=== PATIENT | female | born 1965 | race African-American/Black ===

== ENCOUNTER → 2016-07-11 | Outpatient (CLI) | payer OTHER ==
--- NOTE | 2016-07-11 11:13 | WWHP ---
DATE OF SERVICE: 07/11/2016 CHIEF COMPLAINT: The patient is here for her routine gynecologic exam and mammogram. HPI: This is a 50-year-old G5, P3-0-2-3 with an LMP of 07/07/2016. The patient states she had one sexual encounter and the condom was used but she states the condom broke. She has been noticing a slight colorless discharge with odor for the past 2 weeks. She states she has not had any other sexual partners and is not seeing anybody at this time. The past medical history of chronic neck and back pain, degenerative bone disease and depression. MEDICATIONS: 1. Zoloft 100 mg daily. 2. Xanax 2 mg b.i.d. p.r.n. 3. Roberta p.r.n. 4. Ibuprofen p.r.n. ALLERGIES: No known drug allergies. Past surgical history, [employer]IVE history and family histories are unchanged from the 2015 H&P. REVIEW OF SYSTEMS: She has gained about 18 pounds over the last year. She denies respiratory, cardiac, or GI problems. SOCIAL HISTORY: She smokes 4 cigarettes per day and has 2 to 3 alcoholic drinks per month. She admits to smoking marijuana, but denies any other drug use. PHYSICAL EXAM: Blood pressure 121/75, height 5 feet 4 inches, weight 252 pounds. Temperature 97.8, pulse 91. This a well-developed, heavyset black female who is alert and oriented x3 in no acute distress. HEENT is within normal limits. NECK: Supple without mass or thyromegaly. CHEST AND LUNGS: Clear to auscultation. HEART: Regular rate and rhythm. Breasts, there is a small inclusion cyst at approximately the 4 o'clock position of the areola of the right breast. This measures approximately 9 mm. This has a benign appearance and is nontender and nonerythematous. There rest of the breasts are unremarkable without other mass or discharge. Axillary exam is negative for adenopathy. BACK: Negative for CVA tenderness. ABDOMEN: Obese, soft, nontender, without palpable masses. PELVIC EXAM: Normal external genitalia. Cervix and vagina reveal a small amount of menstrual-type blood and there is a slight odor noted. There is no other unusual discharge. The cervix appears nulliparous and slightly atrophic. There is no evidence of prolapse. The uterus is slightly retroverted, nongravid size and nontender. There are no palpable adnexal masses or tenderness. Rectovaginal exam is negative for mass or tenderness and is negative for occult blood. EXTREMITIES: Nontender. IMPRESSION: A 50-year-old female with complaints of slight colorless discharge and odor x2 weeks, suspect bacterial vaginosis. PLAN: 1. Pap smear was performed. 2. Self breast examination was discussed. 3. GC and Chlamydia testing from the cervix has been obtained. 4. Wet tej were not performed today because of the menstrual blood. 5. The patient will be treated with metronidazole 500 mg b.i.d. x7 days. She is instructed to avoid alcohol while she is on this medication. 6. STD prevention was discussed. We discussed the importance of limiting sexual partners and using condoms if she is sexually active. 7. She will return in one year.
--- NOTE | 2016-07-12 10:45 | MM ---
Reason for exam: screening (asymptomatic). Last mammogram was performed 1 year and 7 months ago. Physical Findings: A clinical breast exam by your physician is recommended on an annual basis and results should be correlated with mammographic findings. MG Screening Mammo w CAD Bilateral CC and MLO view(s) were taken. Prior study comparison: December 08, 2014, bilateral MG screening mammo w CAD. April 08, 2013, bilateral digital screening mammo w/CAD. There are scattered fibroglandular densities. No suspicious calcifications. Focal asymmetry in the upper right MLO view. This finding is changed when compared with previous exams. ASSESSMENT: Incomplete: need additional imaging evaluation, BI-RAD 0 RECOMMENDATION: Special view mammogram of the right breast. If lesion persists on supplemental views, image directed ultrasound is recommended. [facility] will attempt to contact patient to return for supplemental views and ultrasound if indicated.
== END ==
LOC: WWCWWP 08:47
PROVIDERS: ATTEND Obstetrics & Gynecology
DX: Z12.31 Encounter for screening mammogram for malignant neoplasm of breast (principal)
CPT/HCPCS: 87591; 87491; G0202

== ENCOUNTER → 2016-07-14 | Outpatient (CLI) | payer OTHER ==
--- NOTE | 2016-07-14 09:07 | MM ---
Reason for exam: additional evaluation requested from abnormal screening. Last mammogram was performed less than 1 month ago. Physical Findings: Nurse did not find any significant physical abnormalities on exam. MG Work Up Mamm w CAD RT ML and spot compression MLO view(s) were taken of the right breast. Prior study comparison: July 11, 2016, bilateral MG screening mammo w CAD. December 08, 2014, bilateral MG screening mammo w CAD. There are scattered fibroglandular densities. Focal asymmetry does not persist on additional views. These results were verbally communicated with the patient and result sheet given to the patient on 07/14/16. ASSESSMENT: Negative, BI-RAD 1 RECOMMENDATION: Return to routine screening mammogram schedule for both breasts.
== END | disposition home or self-care (01) ==
LOC: RADMAMWWP 07:03
PROVIDERS: ATTEND Obstetrics & Gynecology
DX: R92.8 Other abnormal and inconclusive findings on diagnostic imaging of breast (principal)

== ENCOUNTER → 2016-07-26 | Outpatient (CLI) | payer OTHER ==
--- NOTE | 2016-07-26 15:11 | MR ---
EXAMINATION TYPE: MR moe/alexsander wo con DATE OF EXAM: 07/26/2016 7:00 AM COMPARISON: NONE HISTORY: Cervicalgia, Lumbago CONTRAST: Performed utilizing 0 mL intravenous MultiHance gadolinium contrast. TECHNIQUE: Multiplanar multiecho imaging on a 3.0 Ronna magnet is performed through the cervical spin e. FINDINGS: The craniovertebral junction is normal. Vertebral body alignment is straightened. C7-T1: No focal disc herniation or significant disc bulge is evident. No spinal canal stenosis or n eural foraminal stenosis is present. C6-7: No focal disc herniation or significant disc bulge is evident. No spinal canal stenosis or alessandra ral foraminal stenosis is present. C5-6: Broad-based disc bulge is present with mild anterior thecal sac flattening. No cord contact is evident. No spinal canal stenosis is present. Mild bilateral foraminal narrowing may be present.. C4-5: No focal disc herniation or significant disc bulge is evident. No spinal canal stenosis or alessandra ral foraminal stenosis is present. C3-4: There is a tiny central protrusion with mild anterior thecal sac compression. This is in close approximation with the spinal cord. Cord deformity is not identified. No spinal canal stenosis presen t. Neural foramen are patent.. C2-3: No focal disc herniation or significant disc bulge is evident. No spinal canal stenosis or alessandra ral foraminal stenosis is present. IMPRESSIONS: 1. Mild disc bulging which is broad-based at C5-6 and focal and central at C3-4. No cord contact or s aleksandra canal stenosis is present. 2. Strain of the cervical spine related patient positioning or muscle spasm. EXAMINATION TYPE: MR moe/alexsander wo con DATE OF EXAM: 07/26/2016 7:00 AM COMPARISON: 02/21/2013 HISTORY: Cervicalgia, Lumbago CONTRAST: 0 mL intravenous MultiHance. TECHNIQUE: Multiplanar, multisequence images of the lumbar spine were acquired. FINDINGS: Cord terminates at the L1 level. Vertebral body alignment is normal. There is diffuse disc desiccation. Disc heights appear preserved. L5-S1: Minimal disc bulge is present without thecal sac contact. No spinal canal stenosis. No lay inal stenosis. Facet hypertrophy is present on the left without significant thecal sac compression.. L4-L5: No significant disc bulge or disc herniation. No spinal canal stenosis. No foraminal stenosi s. Facet hypertrophy is present with mild posterior lateral thecal sac contact.. L3-L4: No significant disc bulge or disc herniation. No spinal canal stenosis. No foraminal stenosi s. . L2-L3: No significant disc bulge or disc herniation. No spinal canal stenosis. No foraminal stenosi s. . L1-L2: No significant disc bulge or disc herniation. No spinal canal stenosis. No foraminal stenosi s. . T12-L1: No significant disc bulge or disc herniation. No spinal canal stenosis. No foraminal stenos is. . IMPRESSION: 1. Minimal disc bulge L5-S1. 2. Mild facet hypertrophy L4-5 L5-S1 3. No spinal canal stenosis. 4. No significant interval change
== END | disposition home or self-care (01) ==
LOC: RADMRIMAIN 06:11
PROVIDERS: ATTEND Nurse Practitioner Acute Care
DX: S16.1XXA Strain of muscle, fascia and tendon at neck level, initial encounter (principal); M50.21 Other cervical disc displacement, high cervical region; M51.27 Other intervertebral disc displacement, lumbosacral region; M46.97 Unspecified inflammatory spondylopathy, lumbosacral region
CPT/HCPCS: 72141; 72148

== ENCOUNTER → 2016-08-22 | Outpatient (CLI) | payer OTHER ==
--- NOTE | 2016-08-22 12:14 | CT ---
EXAMINATION TYPE: CT chest wo con DATE OF EXAM: 08/22/2016 COMPARISON: Prior CT chest 02/23/2016 HISTORY: Shortness of breath and Cough CT DLP: 549.60 mGycm Automated exposure control for dose reduction was used. Helical acquisition through the chest without contrast. FINDINGS: There is a nodular density present at the right upper lobe on axial image 23 measuring approximately 8 mm in size is likely to have grown in the interval. There is no axillary or hilar adenopathy. Preva scular lymph nodes are again noted as on previous. No endobronchial lesion, pleural or pericardial ef fusion. Upper abdomen is stable. Aorta shows normal caliber. Bones are unchanged. IMPRESSION: THERE ARE DIFFERENCES IN TECHNIQUE, THERE IS LIKELY SOME SLIGHT INTERVAL GROWTH IN THE PATIENT'S RIGH T UPPER LOBE LUNG NODULE. NONCONTRAST EXAM.
== END | disposition home or self-care (01) ==
LOC: RADCTMAIN 11:19
PROVIDERS: ATTEND Internal Medicine
DX: R05 Cough (principal)
CPT/HCPCS: 71250

== ENCOUNTER → 2016-08-29 | Outpatient (CLI) | payer OTHER ==
--- NOTE | 2016-08-29 10:01 | XR ---
EXAMINATION TYPE: XR Hip Complete RT DATE OF EXAM: 08/29/2016 COMPARISON: NONE HISTORY: Osteoarthritis pain x1 month TECHNIQUE: 2 view right hip FINDINGS: Joint space appears preserved. Femoral head articulates with the acetabulum. No acute fract ures evident. IMPRESSION: 1. Unremarkable right hip
--- NOTE | 2016-08-29 10:02 | XR ---
EXAMINATION TYPE: XR knee complete RT DATE OF EXAM: 08/29/2016 COMPARISON: NONE HISTORY: Osteoarthritis, pain x1 month TECHNIQUE: Three-view right knee FINDINGS: The medial femoral condylar and tibial plateau spurs are present. Joint spaces are preserve d. No joint effusion is evident. Anterior superior patellar spur is present. IMPRESSION: 1. Minimal degenerative change right knee.
== END | disposition home or self-care (01) ==
LOC: RADXRMAIN 09:09
PROVIDERS: ATTEND Internal Medicine
DX: M25.861 Other specified joint disorders, right knee (principal)
CPT/HCPCS: 73502

== ENCOUNTER → 2016-09-02 | Outpatient (CLI) | payer OTHER | END | disposition home or self-care (01) | LOC: RADPETMAIN 12:40 | PROVIDERS: ATTEND Internal Medicine | DX: Z53.9 Procedure and treatment not carried out, unspecified reason (principal) ==

== ENCOUNTER → 2017-01-27 | Outpatient (CLI) | payer OTHER ==
--- NOTE | 2017-01-28 13:56 | PE ---
Nuclear medicine PET/CT HISTORY: Solitary pulmonary nodule Patient received 11.6 mCi F-18 FDG intravenously in delayed scanning performed from the skull base to the mid thighs. Localization and attenuation correction CT scan was performed. Correlation to prior CT chest 08/22/2016, soft tissue of the neck 01/18/2017, prior CT chest 02/23/2016 Neck and chest: The right upper lobe lung nodule is diminished in size and may been postinflammatory focus, minimal residual nodularity present. No suspicious hypermetabolic uptake. All prevascular node s are present. Shotty nodes also present in the axilla, mediastinum. No pleural or pericardial effusi on. Abdomen pelvis: No adrenal mass or retroperitoneal adenopathy. No suspicious hypermetabolic uptake. U terus unremarkable. Osseous structures show somewhat uptake which is indeterminate. IMPRESSION: Interval decrease in size in patient's pleural-based pulmonary nodule. Additional finding s above.
== END | disposition home or self-care (01) ==
LOC: RADPETMAIN 14:07
PROVIDERS: ATTEND Internal Medicine
DX: R91.1 Solitary pulmonary nodule (principal)
CPT/HCPCS: 78815; A9552

== ENCOUNTER → 2017-02-15 | Outpatient (CLI) | payer OTHER ==
[2017-02-15 08:06] LABS: Basophils % (A) 0 %; CH 29.3; CHCM 34.1; Eosinophils # (A) 0.3 k/uL (0-0.7); Eosinophils % (A) 2 %; HDW 1.99; Luc # (Auto) 0.19; Luc % (Auto) 2; Lymphocytes # (A) 3.1 k/uL (1.0-4.8); Lymphocytes % (A) 25 %; MCH 28.6 pg (25.0-35.0); MCHC 33.2 g/dL (31.0-37.0); MCV 86.1 fL (80.0-100.0); Mean Platelet Volume 6.9; Monocytes # (A) 0.4 k/uL (0-1.0); Monocytes % (A) 3 %; Neutrophils # (A) 8.3 k/uL (1.3-7.7); Neutrophils % (A) 68 %; RBC 4.53 m/uL (3.80-5.40); RDW 13.2 % (11.5-15.5); WBC 12.3 k/uL (3.8-10.6); WBC (Perox) 12.17
[2017-02-15 09:41] LABS: ALT 23 U/L (9-52); AST 15 U/L (14-36); Alkaline Phosphatase 111 U/L (38-126); Anion Gap 8 mmol/L; Blood Urea Nitrogen 13 mg/dL (7-17); C Reactive Protein 22.3 mg/L (<10.0); Calcium 9.2 mg/dL (8.4-10.2); Carbon Dioxide 27 mmol/L (22-30); Chloride 105 mmol/L (98-107); Cholesterol 217 mg/dL (<200); Glucose 102 mg/dL (74-99); HDL Cholesterol 45 mg/dL (40-60); Non-African American GFR(MDRD) >60 (>60 ml/min/1.73 sqM); Potassium 4.2 mmol/L (3.5-5.1); Sodium 140 mmol/L (137-145); Total Bilirubin 0.5 mg/dL (0.2-1.3); Total Protein 7.6 g/dL (6.3-8.2)
[2017-02-15 09:42] LABS: Rheumatoid Factor, Qnt <9 IU/mL (<12)
[2017-02-15 12:20] LABS: Erythrocyte Sedimentation Rate 41 mm/hr (0-20)
[2017-02-15 16:47] LABS: ANA w/Reflex to Titer NEGATIVE (NEGATIVE)
== END | disposition home or self-care (01) ==
LOC: LABWHC1 07:29
PROVIDERS: ATTEND Nurse Practitioner Acute Care
DX: Z00.00 Encounter for general adult medical examination without abnormal findings (principal); J44.9 Chronic obstructive pulmonary disease, unspecified; K21.0 Gastro-esophageal reflux disease with esophagitis; E78.2 Mixed hyperlipidemia; I11.9 Hypertensive heart disease without heart failure; M19.90 Unspecified osteoarthritis, unspecified site; M25.50 Pain in unspecified joint; E55.9 Vitamin D deficiency, unspecified; R53.83 Other fatigue
CPT/HCPCS: 36415; 80053; 80061; 82306; 84439; 84443; 85025; 85652; 86038; 86140; 86431

== ENCOUNTER 2017-07-12 16:31 | Emergency (ER) | payer OTHER ==
[2017-07-12 16:36] VITALS: RESP 20; TEMP 98.1
[2017-07-12] MEDS ORDERED: MECLIZINE 12.5 MG TAB PO STA (16:59)
[2017-07-12] MEDS ORDERED: SODIUM CHLORIDE 0.9% 1,000 ML IV STA (16:59)
[2017-07-12] MEDS ORDERED: METOCLOPRAMIDE 5 MG/ML 2 ML VIAL IVP STA (16:59)
--- NOTE | 2017-07-12 17:09 | ED ---
General Adult HPI - General Chief complaint: Headache Stated complaint: Headache, Dizzy Time Seen by Provider: 07/12/17 16:47 Source: patient, RN notes reviewed Mode of arrival: ambulatory Limitations: no limitations - History of Present Illness Initial comments: This a 51-year-old female presents emergency Department chief complaint of intermittent headaches and dizziness. She states that she's been having on and off symptoms no consistent system in which she states she has a left-sided or right-sided headache she states that it comes and goes. She states that she took ibuprofen for. Patient also states that she takes Percocet, Xanax daily. Patient states that she's had no chest pain or shortness of breath. She states that she has short bouts of dizziness in which she describes as the room spins. It is worse with movement. Patient denies any current nausea, vomiting, diarrhea, constipation, fever Chills or any focal weakness. Patient states that she's been evaluated in the past by cardiology for 3 days because she is having syncopal episodes. There is no findings for significant cause. - Related Data Home Medications Medication Instructions Recorded Confirmed Furosemide [Lasix] 20 mg PO DAILY 08/02/15 07/12/17 Potassium Chloride [Klor-Con 10] 10 meq PO DAILY 08/02/15 07/12/17 ALPRAZolam [Xanax] 1 mg PO TID 01/18/17 07/12/17 Albuterol Inhaler [Ventolin Hfa 1 - 2 puff INHALATION RT-Q6H PRN 01/18/17 Inhaler] Budesonide-Formot 160-4.5 Mcg 2 puff INHALATION RT-BID 01/18/17 07/12/17 [Symbicort 160-4.5 Mcg Inhaler] oxyCODONE-APAP 7.5-325MG [Percocet 1 tab PO Q6HR PRN 01/18/17 07/12/17 7.5-325 mg] Amitriptyline HCl [Elavil] 50 mg PO HS 07/12/17 07/12/17 Previous Rx's Medication Instructions Recorded Ciprofloxacin HCl [Cipro] 500 mg PO Q12HR #10 tablet 07/12/17 Meclizine [Antivert] 25 mg PO TID PRN #15 tab 07/12/17 Allergies Allergy/AdvReac Type Severity Reaction Status Date / Time No Known Allergies Allergy Verified 07/12/17 16:54 Review of Systems ROS Statement: Those systems with pertinent positive or pertinent negative responses have been documented in the HPI. ROS Other: All systems not noted in ROS Statement are negative. Past Medical History Past Medical History: COPD Additional Past Medical History / Comment(s): nerve damage, degenerative disk History of Any Multi-Drug Resistant Organisms: None Reported Past Surgical History: Section Additional Past Surgical History / Comment(s): abd surgery Past Psychological History: Anxiety, Bipolar, Depression Smoking Status: Current every day smoker Past Alcohol Use History: None Reported Past Drug Use History: Marijuana General Exam Limitations: no limitations General appearance: alert, in no apparent distress Head exam: Present: atraumatic, normocephalic, normal inspection Eye exam: Present: normal appearance, PERRL, EOMI. Absent: scleral icterus, conjunctival injection, periorbital swelling ENT exam: Present: normal exam, mucous membranes moist Neck exam: Present: normal inspection. Absent: tenderness, meningismus, lymphadenopathy Respiratory exam: Present: normal lung sounds bilaterally. Absent: respiratory distress, wheezes, rales, rhonchi, stridor Cardiovascular Exam: Present: normal rhythm, tachycardia, normal heart sounds. Absent: systolic murmur, diastolic murmur, rubs, gallop, clicks GI/Abdominal exam: Present: soft, normal bowel sounds. Absent: distended, tenderness, guarding, rebound, rigid Neurological exam: Present: alert, oriented X3, CN II-XII intact, reflexes normal. Absent: motor sensory deficit Skin exam: Present: warm, dry, intact, normal color. Absent: rash Course Vital Signs 07/12/17 07/12/17 16:35 18:57 Temperature 98.1 F Pulse Rate 117 H 101 H Respiratory 20 20 Rate Blood Pressure 146/88 167/87 O2 Sat by Pulse 96 95 Oximetry Medical Decision Making - Medical Decision Making This is a 51-year-old female presented to the ER for headache and dizziness. Patient's laboratory review is unremarkable patient does have evidence of urinary tract infection. Patient feels improved after Antivert and antiemetics. Patient we discharged on Antivert and antibiotics - Lab Data Result diagrams: 07/12/17 17:15 07/12/17 17:15 Lab Results 07/12/17 07/12/17 07/12/17 Range/Units 17:15 17:15 17:15 WBC 13.2 H (3.8-10.6) k/uL RBC 5.18 (3.80-5.40) m/uL Hgb 14.1 (11.4-16.0) gm/dL Hct 43.1 (34.0-46.0) % MCV 83.3 (80.0-100.0) fL MCH 27.2 (25.0-35.0) pg MCHC 32.6 (31.0-37.0) g/dL RDW 13.5 (11.5-15.5) % Plt Count 404 (150-450) k/uL Neutrophils % 65 % Lymphocytes % 27 % Monocytes % 4 % Eosinophils % 3 % Basophils % 0 % Neutrophils # 8.5 H (1.3-7.7) k/uL Lymphocytes # 3.6 (1.0-4.8) k/uL Monocytes # 0.5 (0-1.0) k/uL Eosinophils # 0.4 (0-0.7) k/uL Basophils # 0.0 (0-0.2) k/uL Sodium 145 (137-145) mmol/L Potassium 3.7 (3.5-5.1) mmol/L Chloride 103 (98-107) mmol/L Carbon Dioxide 26 (22-30) mmol/L Anion Gap 16 mmol/L BUN 14 (7-17) mg/dL Creatinine 0.50 L (0.52-1.04) mg/dL Est GFR (CKD-EPI)AfAm >90 (>60 ml/min/1.73 sqM) Est GFR (CKD-EPI)NonAf >90 (>60 ml/min/1.73 sqM) Glucose 108 H (74-99) mg/dL Calcium 10.0 (8.4-10.2) mg/dL Magnesium 1.7 (1.6-2.3) mg/dL Total Bilirubin 0.4 (0.2-1.3) mg/dL AST 18 (14-36) U/L ALT 17 (9-52) U/L Alkaline Phosphatase 113 (38-126) U/L Troponin I <0.012 (0.000-0.034) ng/mL Total Protein 8.2 (6.3-8.2) g/dL Albumin 4.3 (3.5-5.0) g/dL Urine Color Urine Appearance (Clear) Urine pH (5.0-8.0) Ur Specific [place] (1.001-1.035) Urine Protein (Negative) Urine Glucose (UA) (Negative) Urine Ketones (Negative) Urine Blood (Negative) Urine Nitrite (Negative) Urine Bilirubin (Negative) Urine Urobilinogen (<2.0) mg/dL Ur Leukocyte Esterase (Negative) Urine RBC (0-5) /hpf Urine WBC (0-5) /hpf Ur Squamous Epith Cells (0-4) /hpf Amorphous Sediment (None) /hpf Urine Bacteria (None) /hpf Hyaline Casts (0-2) /lpf Urine Mucus (None) /hpf 07/12/17 Range/Units 17:15 WBC (3.8-10.6) k/uL RBC (3.80-5.40) m/uL Hgb (11.4-16.0) gm/dL Hct (34.0-46.0) % MCV (80.0-100.0) fL MCH (25.0-35.0) pg MCHC (31.0-37.0) g/dL RDW (11.5-15.5) % Plt Count (150-450) k/uL Neutrophils % % Lymphocytes % % Monocytes % % Eosinophils % % Basophils % % Neutrophils # (1.3-7.7) k/uL Lymphocytes # (1.0-4.8) k/uL Monocytes # (0-1.0) k/uL Eosinophils # (0-0.7) k/uL Basophils # (0-0.2) k/uL Sodium (137-145) mmol/L Potassium (3.5-5.1) mmol/L Chloride (98-107) mmol/L Carbon Dioxide (22-30) mmol/L Anion Gap mmol/L BUN (7-17) mg/dL Creatinine (0.52-1.04) mg/dL Est GFR (CKD-EPI)AfAm (>60 ml/min/1.73 sqM) Est GFR (CKD-EPI)NonAf (>60 ml/min/1.73 sqM) Glucose (74-99) mg/dL Calcium (8.4-10.2) mg/dL Magnesium (1.6-2.3) mg/dL Total Bilirubin (0.2-1.3) mg/dL AST (14-36) U/L ALT (9-52) U/L Alkaline Phosphatase (38-126) U/L Troponin I (0.000-0.034) ng/mL Total Protein (6.3-8.2) g/dL Albumin (3.5-5.0) g/dL Urine Color Yellow Urine Appearance Cloudy H (Clear) Urine pH 7.5 (5.0-8.0) Ur Specific [place] 1.012 (1.001-1.035) Urine Protein 2+ H (Negative) Urine Glucose (UA) Negative (Negative) Urine Ketones Negative (Negative) Urine Blood Moderate H (Negative) Urine Nitrite Negative (Negative) Urine Bilirubin Negative (Negative) Urine Urobilinogen 3.0 (<2.0) mg/dL Ur Leukocyte Esterase Moderate H (Negative) Urine RBC 21 H (0-5) /hpf Urine WBC 13 H (0-5) /hpf Ur Squamous Epith Cells 23 H (0-4) /hpf Amorphous Sediment Occasional H (None) /hpf Urine Bacteria Few H (None) /hpf Hyaline Casts 4 H (0-2) /lpf Urine Mucus Few H (None) /hpf Disposition Clinical Impression: Intermittent headache, UTI (urinary tract infection), Vertigo Disposition: HOME SELF-CARE Condition: Stable Instructions: Urinary Tract Infection in Women (ED), Vertigo (ED) Additional Instructions: Please return to the Emergency Department if symptoms worsen or any other concerns. Prescriptions: Ciprofloxacin HCl [Cipro] 500 mg PO Q12HR #10 tablet Meclizine [Antivert] 25 mg PO TID PRN #15 tab PRN Reason: Vertigo Is patient prescribed a controlled substance at d/c from ED?: No Referrals: Prince Koch MD [Primary Care Provider] - 1-2 days Time of Disposition: 18:36
[2017-07-12 17:32] LABS: Basophils % (A) 0 %; Eosinophils # (A) 0.4 k/uL (0-0.7); Eosinophils % (A) 3 %; HCT 43.1 % (34.0-46.0); HGB 14.1 gm/dL (11.4-16.0); Lymphocytes # (A) 3.6 k/uL (1.0-4.8); Lymphocytes % (A) 27 %; MCH 27.2 pg (25.0-35.0); MCHC 32.6 g/dL (31.0-37.0); MCV 83.3 fL (80.0-100.0); Mean Platelet Volume 7.5; Monocytes # (A) 0.5 k/uL (0-1.0); Monocytes % (A) 4 %; Neutrophils # (A) 8.5 k/uL (1.3-7.7); Neutrophils % (A) 65 %; Platelet Count 404 k/uL (150-450); RBC 5.18 m/uL (3.80-5.40); RDW 13.5 % (11.5-15.5); WBC 13.2 k/uL (3.8-10.6)
[2017-07-12 17:35] LABS: Amorphous Sediment,Urine Occasional /hpf; Appearance,Urine Cloudy (Clear); Bacteria,Urine Few /hpf; Bilirubin,Urine Negative (Negative); Blood,Urine Moderate (Negative); Color,Urine Yellow; Glucose,Urine (UA) Negative (Negative); Hyaline Casts,Urine 4 /lpf (0-2); Ketones,Urine Negative (Negative); Leukocyte Esterase,Urine Moderate (Negative); Mucus,Urine Few /hpf; Nitrite,Urine Negative (Negative); PH, Urine 7.5 (5.0-8.0); Protein,Urine 2+ (Negative); RBC,Urine 21 /hpf (0-5); Specific Gravity,Urine 1.012 (1.001-1.035); Squamous Epithelial Cell,Urine 23 /hpf (0-4); WBC,Urine 13 /hpf (0-5)
[2017-07-12 17:51] LABS: ALT 17 U/L (9-52); AST 18 U/L (14-36); Albumin 4.3 g/dL (3.5-5.0); Alkaline Phosphatase 113 U/L (38-126); Anion Gap 16 mmol/L; Blood Urea Nitrogen 14 mg/dL (7-17); Carbon Dioxide 26 mmol/L (22-30); Chloride 103 mmol/L (98-107); Glucose 108 mg/dL (74-99); Magnesium 1.7 mg/dL (1.6-2.3); Potassium 3.7 mmol/L (3.5-5.1); Sodium 145 mmol/L (137-145); Total Bilirubin 0.4 mg/dL (0.2-1.3); Total Protein 8.2 g/dL (6.3-8.2)
--- NOTE | 2017-07-12 18:03 | CT ---
EXAMINATION TYPE: CT brain wo con DATE OF EXAM: 07/12/2017 COMPARISON: NONE HISTORY: Headache and dizziness. CT DLP: 1057 mGycm. Automated Exposure Control for Dose Reduction was Utilized. TECHNIQUE: CT scan of the head is performed without contrast. FINDINGS: There is no mass effect nor midline shift. There is no sign of intracranial hemorrhage. Th ere is some cerebral cortical atrophy. The calvarium is intact. There is a mucous retention cyst in t he right maxillary sinus. CONCLUSION: Cerebral atrophy. No acute intracranial abnormality.
[2017-07-12 19:00] VITALS: BP 167/87; PULSE 101
== END 2017-07-12 19:21 | disposition home or self-care (01) ==
LOC: EC 16:31
DX: N39.0 Urinary tract infection, site not specified (principal); R51 Headache; R42 Dizziness and giddiness; R00.0 Tachycardia, unspecified; J44.9 Chronic obstructive pulmonary disease, unspecified; F41.9 Anxiety disorder, unspecified; F32.9 Major depressive disorder, single episode, unspecified; F17.200 Nicotine dependence, unspecified, uncomplicated; Z79.51 Long term (current) use of inhaled steroids; Z79.899 Other long term (current) drug therapy
CPT/HCPCS: 99284; 96374; 96361 ×2; 36415; 93005; 80053; 83735; 84484; 85025; 81001; 70450; J2765

== ENCOUNTER → 2017-09-27 | Outpatient (CLI) | payer OTHER ==
[2017-09-27 09:59] LABS: ALT 32 U/L (9-52); AST 17 U/L (14-36); Cholesterol 203 mg/dL (<200); Creatine Kinase 116 U/L (30-135); HDL Cholesterol 52 mg/dL (40-60); LDL Cholesterol,Calculated 138 mg/dL (0-99); Triglycerides 63 mg/dL (<150)
== END | disposition home or self-care (01) ==
LOC: LABWHC1 08:54
PROVIDERS: ATTEND Internal Medicine
DX: E78.2 Mixed hyperlipidemia (principal)
CPT/HCPCS: 36415; 80061; 82550; 84450; 84460

== ENCOUNTER → 2017-10-16 | Outpatient (CLI) | payer OTHER ==
[2017-10-16 07:35] LABS: HCT 42.2 % (34.0-46.0); HGB 13.8 gm/dL (11.4-16.0); MCH 27.9 pg (25.0-35.0); MCHC 32.8 g/dL (31.0-37.0); MCV 85.1 fL (80.0-100.0); Mean Platelet Volume 7.2; Platelet Count 368 k/uL (150-450); RBC 4.96 m/uL (3.80-5.40); RDW 14.2 % (11.5-15.5); WBC 15.8 k/uL (3.8-10.6)
[2017-10-16 08:09] LABS: ALT 32 U/L (9-52); AST 17 U/L (14-36); Albumin 3.7 g/dL (3.5-5.0); Alkaline Phosphatase 112 U/L (38-126); Anion Gap 7 mmol/L; Blood Urea Nitrogen 9 mg/dL (7-17); Calcium 9.3 mg/dL (8.4-10.2); Carbon Dioxide 30 mmol/L (22-30); Chloride 105 mmol/L (98-107); Glucose 96 mg/dL (74-99); Potassium 4.2 mmol/L (3.5-5.1); Sodium 142 mmol/L (137-145); T4, Free (Free Thyroxine) 1.14 ng/dL (0.78-2.19); Total Bilirubin 0.5 mg/dL (0.2-1.3); Total Protein 7.2 g/dL (6.3-8.2)
== END | disposition home or self-care (01) ==
LOC: LABWHC1 06:55
PROVIDERS: ATTEND Internal Medicine
DX: E78.2 Mixed hyperlipidemia (principal); E66.1 Drug-induced obesity; M19.90 Unspecified osteoarthritis, unspecified site
CPT/HCPCS: 36415; 80053; 84439; 84443; 85027

== ENCOUNTER → 2017-10-23 | Outpatient (CLI) | payer OTHER ==
[2017-10-23 10:11] VITALS: BP 117/79; PULSE 104; TEMP 98.1; BMI 43.2
--- NOTE | 2017-10-23 10:57 | P.HPOB ---
History of Present Illness H&P Date: 10/23/17 Chief Complaint: The patient is here for her routine gynecologic exam and mammogram. This is a 51-year-old with an LMP of July 2017. She states her periods were regular up until 3 months ago. She denies hot flashes. She states there is no way she could be since she has not been sexually active during the past year. She is complaining of slight vaginal discharge is been going on for some time. She denies odor or pruritus. Last year she was treated for bacterial vaginosis. She is otherwise without complaints. Review of Systems The patient's weight has been stable over the last year. She denies respiratory , cardiac, or G.I. problems. Past Medical History Past Medical History: COPD Additional Past Medical History / Comment(s): nerve damage, degenerative disk, chronic neck and back problems.PAST [employer] HISTORY: she has been treated for gonorrhea and chlamydia before 1998. History of Any Multi-Drug Resistant Organisms: None Reported Past Surgical History: Section (x 3) Additional Past Surgical History / Comment(s): abd surgery- lipoma removed. Past Psychological History: Anxiety, Bipolar, Depression Smoking Status: Current every day smoker (About a half a pack of cigarettes per day.) Past Alcohol Use History: None Reported Past Drug Use History: Marijuana Additional History: She is single and is not seeing anybody at this time. She is currently not sexually active. 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 - Past Family History Mother Family Medical History: Myocardial Infarction (NH) Additional Family Medical History / Comment(s): of HIV/AIDS. Medications and Allergies Home Medications Medication Instructions Recorded Confirmed Type Furosemide [Lasix] 20 mg PO DAILY 08/02/15 10/23/17 History Potassium Chloride [Klor-Con 10] 10 meq PO DAILY 08/02/15 10/23/17 History ALPRAZolam [Xanax] 1 mg PO TID 01/18/17 10/23/17 History Albuterol Inhaler [Ventolin Hfa 1 - 2 puff INHALATION RT-Q6H PRN 01/18/17 History Inhaler] Budesonide-Formot 160-4.5 Mcg 2 puff INHALATION RT-BID 01/18/17 10/23/17 History [Symbicort 160-4.5 Mcg Inhaler] oxyCODONE-APAP 7.5-325MG [Percocet 1 tab PO Q6HR PRN 01/18/17 10/23/17 History 7.5-325 mg] Amitriptyline HCl [Elavil] 50 mg PO HS 07/12/17 10/23/17 History Phentermine HCl [Adipex-P] tab PO DAILY 10/23/17 History Allergies Allergy/AdvReac Type Severity Reaction Status Date / Time No Known Allergies Allergy Verified 10/23/17 10:02 Exam Vital Signs Temp Pulse BP 10/23/17 10:03 98.1 F 104 H 117/79 Intake and Output 10/22/17 10/23/17 10/23/17 22:59 06:59 14:59 Other: Weight 114.305 kg Height 5'4", BMI 43.3. This is a well-developed well-nourished heavyset black female who is alert and oriented times 3 in no acute distress. HEENT: Within normal limits. NECK: Supple without mass or thyromegaly. CHEST AND LUNGS: Clear to auscultation. HEART: Regular rate and rhythm. BREASTS: There is a benign appearing inclusion cyst at the lateral aspect of the right areola measuring approximately 6 mm. This is not inflamed and nontender. She states this has been there since she popped a pimple like lesion. The breasts are otherwise without mass or tenderness. AXILLARY EXAM: Negative for adenopathy. BACK: Negative for CVA tenderness. ABDOMEN: Soft, nontender, without palpable masses. PELVIC EXAM: external genitalia has slight whitish, creamy discharge with otherwise normal external genitalia . Cervix and vagina appear normal with small amount of mucusy discharge with slight odor. There is no unusual discharge. There is no evidence of prolapse. The uterus is midposition, nongravid size and nontender. There are no palpable adnexal masses or tenderness. RECTAL EXAM: negative for mass or tenderness and is negative for occult blood. EXTREMITIES: Nontender. IMPRESSION: 1. 51 year old perimenopausal female with slight vaginal discharge, probable bacterial vaginosis. 2. Otherwise, normal pelvic exam. PLAN: 1. Pap smear was deferred since she had a normal one last year. 2. Self breast awareness was discussed. 3. Screening mammogram will be done today. 4. GC and chlamydia testing was obtained from cervix. 5. Metronidazole 500 mg PID times 7 days. An electronic prescription will be sent to [facility] on . 6. She'll keep a menstrual calendar and call if she had having menstrual problems or she has bleeding after 12 months of amenorrhea. We have discussed how menses can be irregular prior to the periods stopping. 7. She will return in one year and PRN.
[2017-10-25 07:48] LABS: C. trachomatis,PCR Negative (Neg,Equiv); Chlamydia trachomatis Source Cervix; N. gonorrhoeae,PCR Negative (Neg,Equiv); Neisseria Source Cervix
--- NOTE | 2017-10-25 08:46 | MM ---
Reason for exam: screening (asymptomatic). Last mammogram was performed 1 year and 3 months ago. Physical Findings: A clinical breast exam by your physician is recommended on an annual basis and results should be correlated with mammographic findings. MG Screening Mammo w CAD Bilateral CC and MLO view(s) were taken. Prior study comparison: July 14, 2016, right breast MG work up mamm w CAD RT. July 11, 2016, bilateral MG screening mammo w CAD. There are scattered fibroglandular densities. No significant changes when compared with prior studies. ASSESSMENT: Negative, BI-RAD 1 RECOMMENDATION: Routine screening mammogram of both breasts in 1 year.
== END | disposition home or self-care (01) ==
LOC: WWCWWP 09:37
PROVIDERS: ATTEND Obstetrics & Gynecology
DX: Z12.31 Encounter for screening mammogram for malignant neoplasm of breast (principal); Z11.3 Encounter for screening for infections with a predominantly sexual mode of transmission; N89.8 Other specified noninflammatory disorders of vagina
CPT/HCPCS: 77067; 87491; 87591

== ENCOUNTER 2018-01-01 08:23 | Emergency (ER) | payer OTHER ==
[2018-01-01 08:30] VITALS: RESP 18
[2018-01-01] MEDS ORDERED: Acetaminophen-Codeine 300-30mg TAB PO STA ×2 (09:03→09:38)
[2018-01-01] MEDS ORDERED: KETOROLAC 60 MG/2 ML VIAL IM STA (09:03)
[2018-01-01] MEDS ORDERED: ORPHENADRINE 30 MG/ML 2 ML VIAL IM STA (09:03)
--- NOTE | 2018-01-01 09:18 | ED ---
General Adult HPI - General Chief complaint: Back Pain/Injury Stated complaint: back pain Time Seen by Provider: 01/01/18 08:36 Source: patient, RN notes reviewed, old records reviewed Mode of arrival: wheelchair Limitations: no limitations - History of Present Illness Initial comments: Patient is a 52-year-old female presents emergency department today with chief complaint of lower back pain read on the left and right leg. Patient states she 's had no saddle anesthesias. She denies any other complaints at this time. Patient reports that she has had a history of chronic back pain. Patient states had no recent x-rays. She denies any significant falls or trauma to the back. - Related Data Home Medications Medication Instructions Recorded Confirmed Furosemide [Lasix] 20 mg PO DAILY 08/02/15 01/01/18 Potassium Chloride [Klor-Con 10] 10 meq PO DAILY 08/02/15 01/01/18 ALPRAZolam [Xanax] 1 mg PO TID 01/18/17 01/01/18 Albuterol Inhaler [Ventolin Hfa 1 - 2 puff INHALATION RT-Q6H PRN 01/18/17 Inhaler] Budesonide-Formot 160-4.5 Mcg 2 puff INHALATION RT-BID 01/18/17 01/01/18 [Symbicort 160-4.5 Mcg Inhaler] oxyCODONE-APAP 7.5-325MG [Percocet 1 tab PO Q6HR PRN 01/18/17 01/01/18 7.5-325 mg] Amitriptyline HCl [Elavil] 50 mg PO HS PRN 07/12/17 01/01/18 Montelukast Sodium [Singulair] 10 mg PO HS 01/01/18 01/01/18 Previous Rx's Medication Instructions Recorded Cyclobenzaprine [Flexeril] 10 mg PO TID #12 tab 01/01/18 Dexamethasone 0.75 mg PO DAILY #12 tab 01/01/18 Ketorolac [Toradol] 10 mg PO Q6HR #12 tab 01/01/18 Allergies Allergy/AdvReac Type Severity Reaction Status Date / Time No Known Allergies Allergy Verified 01/01/18 08:55 Review of Systems ROS Statement: Those systems with pertinent positive or pertinent negative responses have been documented in the HPI. ROS Other: All systems not noted in ROS Statement are negative. 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 History of Any Multi-Drug Resistant Organisms: None Reported Past Surgical History: Section Additional Past Surgical History / Comment(s): abd surgery- lipoma removed. Past Psychological History: Anxiety, Bipolar, Depression Smoking Status: Current every day smoker Past Alcohol Use History: None Reported Past Drug Use History: Marijuana - Past Family History Mother Family Medical History: Myocardial Infarction ([place]) Additional Family Medical History / Comment(s): of HIV/AIDS. General Exam - General Exam Comments Initial Comments: 52-year-old female. Alert and oriented. No acute distress. Limitations: no limitations General appearance: alert, in no apparent distress Head exam: Present: atraumatic, normocephalic, normal inspection Eye exam: Present: normal appearance, PERRL, EOMI. Absent: scleral icterus, conjunctival injection, periorbital swelling ENT exam: Present: normal exam, mucous membranes moist Neck exam: Present: normal inspection. Absent: tenderness, meningismus, lymphadenopathy Respiratory exam: Present: normal lung sounds bilaterally Cardiovascular Exam: Present: regular rate, normal rhythm, normal heart sounds. Absent: systolic murmur, diastolic murmur, rubs, gallop, clicks GI/Abdominal exam: Present: soft, normal bowel sounds. Absent: distended, tenderness, guarding, rebound, rigid Extremities exam: Present: normal inspection, full ROM, normal capillary refill , other (Positive straight leg test.). Absent: tenderness, pedal edema, joint swelling, calf tenderness Back exam: Present: normal inspection Neurological exam: Present: alert, oriented X3, CN II-XII intact Psychiatric exam: Present: normal affect, normal mood Skin exam: Present: warm, dry, intact, normal color. Absent: rash Course Vital Signs 01/01/18 08:27 Temperature 98.5 F Pulse Rate 106 H Respiratory 18 Rate Blood Pressure 121/79 O2 Sat by Pulse 97 Oximetry Medical Decision Making - Medical Decision Making 52-year-old female with chronic back pain worse with movement presents today with acute exacerbation of back pain, worse over the Past month. Patient denies any urinary symptoms. Denies any red flag symptoms. She denies any fevers chills or other complaints. X-ray showed no evidence of fracture or malalignment. At this time Patient has been advised of close follow-up with primary care physician. We'll start the Patient on anti-inflammatory medication and muscle relaxers and pain medication. Discussed return parameters. Patient history plan will comply. Return parameters were discussed. - Radiology Data Radiology results: report reviewed Fracture or malalignment seen in the lumbar spine. Mild multilevel degenerative disease in the lumbar spine noted. Disposition Clinical Impression: Mechanical back pain Disposition: HOME SELF-CARE Condition: Good Instructions: Chronic Back Pain (ED) Additional Instructions: Patient has a follow-up with primary care provider. Take medication as prescribed. Return to emergency department if any alarming signs or symptoms occur. Prescriptions: Cyclobenzaprine [Flexeril] 10 mg PO TID #12 tab Dexamethasone 0.75 mg PO DAILY #12 tab Ketorolac [Toradol] 10 mg PO Q6HR #12 tab Is patient prescribed a controlled substance at d/c from ED?: No Referrals: Prince Koch MD [Primary Care Provider] - 1-2 days Time of Disposition: 10:59
--- NOTE | 2018-01-01 10:29 | XR ---
EXAMINATION TYPE: XR lumbar spine 2 or 3V DATE OF EXAM: 01/01/2018 CLINICAL HISTORY: Chronic low back pain. No stated specific injury. TECHNIQUE: Frontal and lateral images of the lumbar spine are obtained. COMPARISON: 07/01/2014 FINDINGS: There are 5 lumbar type vertebral bodies identified. The lumbar spine shows satisfactory alignment without evidence of acute fracture or dislocation. Vertebral body heights and disk space he ights are within normal limits. Facet arthropathy is seen at L3-L4, L4-L5 and L5-S1. Very small anter ior osteophytes are seen visualized thoracolumbar spine. The overlying soft tissue appears unremarkab le. Very minimal levoscoliotic curvature is likely positional in nature. IMPRESSION: 1. No acute fracture or malalignment is seen in the lumbar spine. 2. Mild multilevel degenerative disc disease of the lumbar spine.
--- NOTE | 2018-01-01 11:12 | ED ---
Disposition Clinical Impression: Mechanical back pain Disposition: HOME SELF-CARE Condition: Good Instructions: Chronic Back Pain (ED) Additional Instructions: Patient has a follow-up with primary care provider. Take medication as prescribed. Return to emergency department if any alarming signs or symptoms occur. Prescriptions: Cyclobenzaprine [Flexeril] 10 mg PO TID #12 tab Dexamethasone 0.75 mg PO DAILY #12 tab Ketorolac [Toradol] 10 mg PO Q6HR #12 tab Lidocaine 5% Patch [Lidoderm 5% Patch] 1 patch TOPICAL DAILY #10 patch Is patient prescribed a controlled substance at d/c from ED?: No Referrals: Prince Koch MD [Primary Care Provider] - 1-2 days
[2018-01-01 11:17] VITALS: PULSE 89; TEMP 97.8
[2018-01-01 11:18] VITALS: BP 119/81
== END 2018-01-01 11:18 | disposition home or self-care (01) ==
LOC: EC 08:23
DX: G89.29 Other chronic pain (principal); M54.5 Low back pain; J44.9 Chronic obstructive pulmonary disease, unspecified; F41.9 Anxiety disorder, unspecified; F32.9 Major depressive disorder, single episode, unspecified; F17.200 Nicotine dependence, unspecified, uncomplicated; Z79.51 Long term (current) use of inhaled steroids; Z79.899 Other long term (current) drug therapy
CPT/HCPCS: 72100; 99284; 96372 ×2; J2360; J1885

== ENCOUNTER 2018-05-28 08:23 | Emergency (ER) | payer OTHER ==
[2018-05-28 08:28] VITALS: RESP 18
--- NOTE | 2018-05-28 08:58 | ED ---
Skin/Abscess/FB HPI - General Chief complaint: Skin/Abscess/Foreign Body Stated complaint: knot on rt shoulder blade Time Seen by Provider: 05/28/18 08:33 Source: patient, RN notes reviewed Mode of arrival: ambulatory Limitations: no limitations - History of Present Illness Initial comments: 52-year-old female presents emergency Department with multiple complaints. Primary complaint right shoulder pain, right scapular mass. Patient states developed the last 3 days. Patient states that she's had increase in pain and right shoulder with repetitious movements. Denies any trauma no falls. Denies any fevers or chills no chest pain or shortness of breath. Patient's family notices large lump on her back. Patient denies any upper extremity weakness, paresthesias. Patient also went of a rash or lower right leg which has been there for several weeks to months. She states it does slightly improved at times with steroid creams but does not improve completely. Patient states it is itchy. - Related Data Home Medications Medication Instructions Recorded Confirmed Budesonide-Formot 160-4.5 Mcg 2 puff INHALATION RT-BID 01/18/17 05/28/18 [Symbicort 160-4.5 Mcg Inhaler] ALPRAZolam [Xanax] 0.5 mg PO DAILY PRN 05/28/18 05/28/18 Ibuprofen [Motrin] 400 mg PO Q8HR PRN 05/28/18 05/28/18 Previous Rx's Medication Instructions Recorded Clotrimazole/Betameth Lotion 1 applic TOPICAL BID #30 ml 05/28/18 [Lotrisone] Ibuprofen [Motrin] 600 mg PO Q8HR PRN #30 tab 05/28/18 Allergies Allergy/AdvReac Type Severity Reaction Status Date / Time No Known Allergies Allergy Verified 05/28/18 08:34 Review of Systems ROS Statement: Those systems with pertinent positive or pertinent negative responses have been documented in the HPI. ROS Other: All systems not noted in ROS Statement are negative. 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 History of Any Multi-Drug Resistant Organisms: None Reported Past Surgical History: Section Additional Past Surgical History / Comment(s): abd surgery- lipoma removed. Past Psychological History: Anxiety, Bipolar, Depression Smoking Status: Current every day smoker Past Alcohol Use History: None Reported Past Drug Use History: Marijuana - Past Family History Mother Family Medical History: Myocardial Infarction ([place]) Additional Family Medical History / Comment(s): of HIV/AIDS. General Exam Limitations: no limitations General appearance: alert, in no apparent distress Head exam: Present: atraumatic, normocephalic, normal inspection Eye exam: Present: normal appearance, PERRL, EOMI. Absent: scleral icterus, conjunctival injection, periorbital swelling ENT exam: Present: normal exam, normal oropharynx, mucous membranes moist, TM's normal bilaterally Neck exam: Present: normal inspection, full ROM. Absent: tenderness, meningismus, lymphadenopathy Respiratory exam: Present: normal lung sounds bilaterally. Absent: respiratory distress, wheezes, rales, rhonchi, stridor Cardiovascular Exam: Present: regular rate, normal rhythm, normal heart sounds. Absent: systolic murmur, diastolic murmur, rubs, gallop, clicks Back exam: Absent: normal inspection (Right scapular region there is a large soft fluctuant mass approximately 10 cm in diameter) Skin exam: Present: warm, dry, intact, normal color, rash (Right leg there is a dry scaly patches noted with demarcated borders) Course Vital Signs 05/28/18 08:26 Temperature 98.3 F Pulse Rate 109 H Respiratory 18 Rate Blood Pressure 138/90 O2 Sat by Pulse 99 Oximetry Medical Decision Making - Medical Decision Making 52-year-old female presents emergency Department with 2 complaints. Patient's had a lump on her back which she states is only minimal for 3 days. Ultrasound shows soft tissue mass. Patient symptoms markedly his foot lipoma no this is the more acute onset. She will follow-up with orthopedics as she's had some right shoulder pain related to tendinitis. Patient was also has had a rash her right leg which is consistent with tinea. Patient will be discharged with close follow-up and return parameters were discussed. Disposition Clinical Impression: Lipoma, Right shoulder tendinitis, Tinea corporis Disposition: HOME SELF-CARE Condition: Stable Instructions (If sedation given, give patient instructions): Tinea Corporis (ED), Lipoma (ED) Additional Instructions: Please return to the Emergency Department if symptoms worsen or any other concerns. Please follow-up with orthopedics for recheck your right shoulder. Prescriptions: Clotrimazole/Betameth Lotion [Lotrisone] 1 applic TOPICAL BID #30 ml Ibuprofen [Motrin] 600 mg PO Q8HR PRN #30 tab PRN Reason: Pain Is patient prescribed a controlled substance at d/c from ED?: No Referrals: Prince Koch MD [Primary Care Provider] - 1-2 days Sean Garcia MD [STAFF PHYSICIAN] - 1-2 days Time of Disposition: 10:09
--- NOTE | 2018-05-28 09:35 | US ---
EXAMINATION TYPE: US mass soft tissue chest/back DATE OF EXAM: 05/28/2018 COMPARISON: NONE CLINICAL HISTORY: Pain. Palpable area right mid back x 3 days Right mid back: 10.8 x 5.1 x 14.5cm isoechoic solid appearing area with well defined borders and mini mal vascularity seen at patient's area of concern. IMPRESSION: There is a nonspecific soft tissue mass at the site of clinical concern. Correlate clinic ally. Consider MRI correlation.
[2018-05-28 11:12] VITALS: BP 136/99; PULSE 98; TEMP 97
== END 2018-05-28 11:14 | disposition home or self-care (01) ==
LOC: EC 08:23
DX: M75.91 Shoulder lesion, unspecified, right shoulder (principal); B35.4 Tinea corporis; D17.39 Benign lipomatous neoplasm of skin and subcutaneous tissue of other sites; J44.9 Chronic obstructive pulmonary disease, unspecified; F17.200 Nicotine dependence, unspecified, uncomplicated; Z79.51 Long term (current) use of inhaled steroids
CPT/HCPCS: 99283

== ENCOUNTER 2018-06-20 15:46 | Emergency (ER) | payer OTHER ==
[2018-06-20 16:00] VITALS: TEMP 98.2
[2018-06-20] MEDS ORDERED: HYDROcodone/APAP 5-325MG 1 EACH TAB PO STA (16:28)
--- NOTE | 2018-06-20 17:36 | XR ---
PROCEDURE: XR pelvis AP view - 1V DATE AND TIME: 06/20/2018 5:00 PM CLINICAL INDICATION: PHH; Pain TECHNIQUE: AP pelvis. COMPARISON: 08/29/2016 FINDINGS: There is no fracture or malalignment. The soft tissues are unremarkable. IMPRESSION: No acute radiographic process, AP pelvis.
--- NOTE | 2018-06-20 17:38 | XR ---
PROCEDURE: XR knee complete RT - 3V DATE AND TIME: 06/20/2018 5:00 PM CLINICAL INDICATION: PHH; Pain TECHNIQUE: AP and lateral and oblique AP views COMPARISON: 08/29/2016 FINDINGS: There is no fracture or malalignment. Mild joint space narrowing and ossific spurring noted at the medial compartment, consistent with oste oarthritis changes, similar to the prior study. No focal skeletal findings. The soft tissues are unremarkable. IMPRESSION: NO ACUTE PROCESS.
--- NOTE | 2018-06-20 18:34 | ED ---
Extremity Problem HPI - General Chief complaint: Extremity Problem,Nontraumatic Stated complaint: rt knee/leg pain Time Seen by Provider: 06/20/18 16:02 Source: patient Mode of arrival: wheelchair Limitations: no limitations - History of Present Illness Initial comments: 52-year-old feel past medical history of chronic back pain presenting today for chief complaint of right thigh pain. Patient states that from her knee rating up towards the right hip she has sharp shooting pain. She states she experienced this in the past, she states it usually is bilateral. She states this is a chronic issue. Patient states she recently started a second job she has noted increasing pain beginning in the right knee rating upwards right hip. Patient denies any numbness tingling loss sensation, pallor or coolness of the extremity. Patient denies any soft tissue swelling of the knee erythema warmth to palpation fever chills or night sweats. Patient denies any direct trauma or fall. Patient denies any other area of injury. Patient denies urinary tension loss of bowel bladder control. Remaining review of systems negative, patient denies any recent shortness of breath, chest pain, back pain, abdominal pain, nausea or vomiting, dysuria or hematuria, constipation or diarrhea, headaches or visual changes, or any other complaints. - Related Data Home Medications Medication Instructions Recorded Confirmed Budesonide-Formot 160-4.5 Mcg 2 puff INHALATION RT-BID 01/18/17 05/28/18 [Symbicort 160-4.5 Mcg Inhaler] ALPRAZolam [Xanax] 0.5 mg PO DAILY PRN 05/28/18 05/28/18 Ibuprofen [Motrin] 400 mg PO Q8HR PRN 05/28/18 05/28/18 Previous Rx's Medication Instructions Recorded Clotrimazole/Betameth Lotion 1 applic TOPICAL BID #30 ml 05/28/18 [Lotrisone] Ibuprofen [Motrin] 600 mg PO Q8HR PRN #30 tab 05/28/18 Allergies Allergy/AdvReac Type Severity Reaction Status Date / Time No Known Allergies Allergy Verified 06/20/18 16:00 Review of Systems ROS Statement: Those systems with pertinent positive or pertinent negative responses have been documented in the HPI. ROS Other: All systems not noted in ROS Statement are negative. 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 History of Any Multi-Drug Resistant Organisms: None Reported Past Surgical History: Section Additional Past Surgical History / Comment(s): abd surgery- lipoma removed. Past Psychological History: Anxiety, Bipolar, Depression Smoking Status: Current every day smoker Past Alcohol Use History: None Reported Past Drug Use History: Marijuana - Past Family History Mother Family Medical History: Myocardial Infarction ([place]) Additional Family Medical History / Comment(s): of HIV/AIDS. General Exam - General Exam Comments Initial Comments: General: The patient is awake and alert, in no distress, and does not appear acutely ill. Eye: Pupils are equal, round and reactive to light, extra-ocular movements are intact. No nystagmus. There is normal conjunctiva bilaterally. No signs of icterus. Cardiovascular: There is a regular rate and rhythm. No murmur, rub or gallop is appreciated. Respiratory: Lungs are clear to auscultation, respirations are non-labored, breath sounds are equal. No wheezes, stridor, rales, or rhonchi. Gastrointestinal: Soft, non-distended, non-tender abdomen without masses or organomegaly noted. There is no rebound or guarding present. Musculoskeletal: Upon inspection, no swelling erthema of the knees, equal b/l. No warmth to palpation. Normal ROM of the upper and lower extremities person bilaterally however patient complains of discomfort with range of motion at the right knee. Strength 5/5 of the LE equal b/l, extensor mechanism intact. Sensation intact of the LE including saddle region b/l. DP pulses equal bilaterally 2+. No point tenderness to palpation of knee or hip. Neurological: A&O x 3. CN II-XII intact, There are no obvious motor or sensory deficits. Coordination appears grossly intact. Speech is normal. Skin: Skin is warm and dry and no rashes or lesions are noted. Psychiatric: Cooperative, appropriate mood & affect, normal judgment. Limitations: no limitations Course Vital Signs 06/20/18 06/20/18 06/20/18 15:58 18:41 18:59 Temperature 98.2 F 98.2 F Pulse Rate 94 84 84 Respiratory 18 16 16 Rate Blood Pressure 128/83 124/61 124/61 O2 Sat by Pulse 97 99 99 Oximetry Medical Decision Making - Medical Decision Making 52yo female presenting today for cc of shoot pain up from right knee. Patient states this is chronic in nature and was told in the past she has neuropathy, pt neurovascularly intact. Pain has increased since increased activity with addition of second job. Pt denies fall or direct trauma. Pt has no infectious symptoms of ROS no on physical examination. Imaging studies are (-) for acute osseous process. Pt was provided knee immobilizer. Pt given norco which she states decreased symptoms. Pt provided work note to rest right knee. I advised patient to f/u with primary care provider and orthopedic surgery. After discussing the case with attending provider Dr. Ware he is agreeable with treatment plan and discharge. Pt appears pleased with plan, agreeable with discharge. Discharged appearing well. Pt was ambulated in room during physical examination and was able to weight bear. Disposition Clinical Impression: Right knee pain Disposition: HOME SELF-CARE Condition: Good Instructions (If sedation given, give patient instructions): Knee Pain (ED) Additional Instructions: Please use medication as discussed. Please follow-up with family doctor in the next 2 days/. Please return to emergency room if the symptoms increase or worsen or for any other concerns. Is patient prescribed a controlled substance at d/c from ED?: No Referrals: Prince Koch MD [Primary Care Provider] - 1-2 days Time of Disposition: 18:34
[2018-06-20 18:42] VITALS: BP 124/61; PULSE 84; RESP 16
== END 2018-06-20 18:55 | disposition home or self-care (01) ==
LOC: EC 15:46
DX: M25.561 Pain in right knee (principal); J44.9 Chronic obstructive pulmonary disease, unspecified; F17.200 Nicotine dependence, unspecified, uncomplicated; Z79.51 Long term (current) use of inhaled steroids
CPT/HCPCS: 72170; 99283

== ENCOUNTER 2018-09-03 08:51 | Observation (INO) | payer OTHER ==
[2018-09-03] MEDS ORDERED: SODIUM CHLORIDE 0.9% 1,000 ML IV STA ×2 (09:42)
[2018-09-03] MEDS ORDERED: ASPIRIN 81 MG PO STA (09:42)
--- NOTE | 2018-09-03 10:10 | ED ---
Extremity Problem HPI - General Chief complaint: Extremity Problem,Nontraumatic Stated complaint: left leg swelling/ left hand numbness Time Seen by Provider: 09/03/18 09:29 Source: patient, RN notes reviewed, old records reviewed Mode of arrival: ambulatory Limitations: no limitations - History of Present Illness Initial comments: This Patient is a 52-year-old female, with multiple complaints. She states that yesterday and today she's had a slight headache, complaining of dizziness, and complaining of some left arm tingling. Patient states that she felt she was walking around "drunk". Patient also states that she is concerned for left leg swelling. She's been having swelling after work of her left leg past few days. She reports that it seems to be improved after she looks her leg up and elevate this. Patient states that she's had no previous cardiac history. She has extensive family cardiac history. She denies any significant chest pain at this time. She complains of a dull headache. Patient states that she's had no visual changes, fevers or chills. - Related Data Home Medications Medication Instructions Recorded Confirmed No Known Home Medications 09/03/18 09/03/18 Allergies Allergy/AdvReac Type Severity Reaction Status Date / Time No Known Allergies Allergy Verified 09/03/18 09:37 Review of Systems ROS Statement: Those systems with pertinent positive or pertinent negative responses have been documented in the HPI. ROS Other: All systems not noted in ROS Statement are negative. 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 History of Any Multi-Drug Resistant Organisms: None Reported Past Surgical History: Section Additional Past Surgical History / Comment(s): abd surgery- lipoma removed. Past Psychological History: Anxiety, Bipolar, Depression Smoking Status: Current every day smoker Past Alcohol Use History: Rare Past Drug Use History: Marijuana - Past Family History Mother Family Medical History: Myocardial Infarction ([place]) Additional Family Medical History / Comment(s): of HIV/AIDS. General Exam - General Exam Comments Initial Comments: Alert and oriented africian serbian 52-year-old female. No significant distress. Limitations: no limitations Head exam: Present: atraumatic, normocephalic, normal inspection Eye exam: Present: normal appearance, PERRL, EOMI. Absent: scleral icterus, c onjunctival injection, periorbital swelling ENT exam: Present: normal exam, mucous membranes moist Neck exam: Present: normal inspection. Absent: tenderness, meningismus, lymphadenopathy Respiratory exam: Present: wheezes (Wheezing right lung). Absent: normal lung sounds bilaterally, respiratory distress, rales, rhonchi, stridor Cardiovascular Exam: Present: regular rate, normal rhythm, normal heart sounds. Absent: systolic murmur, diastolic murmur, rubs, gallop, clicks GI/Abdominal exam: Present: soft, normal bowel sounds. Absent: distended, tenderness, guarding, rebound, rigid Extremities exam: Present: normal inspection, full ROM, normal capillary refill, other (1+ pedal edema left leg. Tenderness.). Absent: tenderness, pedal edema, joint swelling, calf tenderness Back exam: Present: normal inspection Neurological exam: Present: alert, oriented X3, CN II-XII intact Psychiatric exam: Present: normal affect, normal mood Skin exam: Present: warm, dry, intact, normal color. Absent: rash Course Vital Signs 09/03/18 09/03/18 09/03/18 09:08 10:00 12:13 Temperature 98.7 F 98.0 F Pulse Rate 98 88 89 Respiratory 20 16 16 Rate Blood Pressure 143/89 130/98 151/89 O2 Sat by Pulse 93 L 99 99 Oximetry Medical Decision Making - Medical Decision Making 52-year-old female presents return today with multiple complaints. Complaint of left leg swelling, left arm tingling, dizziness sensation. She also some chest pain, complaining of a cough. She is a smoker. No prior history of strokes. This time Patient is an age of 2. Patient's given TIA workup, given aspirin. Blood work was reviewed apolinar woo. Chest x-ray was reviewed shows evidence of recent pneumonia. She does complain of worsening coughing. Will be given a dose Rocephin and azithromycin. Patient is assessed with Dr. Kidd. Concern for they'll continue left arm tingling numbness, complaints of dizziness that she will the Patient for concern for TIA. - Lab Data Result diagrams: 09/03/18 09:45 09/03/18 09:45 Lab Results 09/03/18 09/03/1809/03/19 Range/Units 09:45 09:45 09:45 WBC 9.1 (3.8-10.6) k/uL RBC 4.59 (3.80-5.40) m/uL Hgb 13.3 (11.4-16.0) gm/dL Hct 40.5 (34.0-46.0) % MCV 88.1 (80.0-100.0) fL MCH 28.9 (25.0-35.0) pg MCHC 32.8 (31.0-37.0) g/dL RDW 14.2 (11.5-15.5) % Plt Count 340 (150-450) k/uL Neutrophils % 56 % Lymphocytes % 35 % Monocytes % 4 % Eosinophils % 3 % Basophils % 0 % Neutrophils # 5.1 (1.3-7.7) k/uL Lymphocytes # 3.2 (1.0-4.8) k/uL Monocytes # 0.4 (0-1.0) k/uL Eosinophils # 0.3 (0-0.7) k/uL Basophils # 0.0 (0-0.2) k/uL PT (9.0-12.0) sec INR (<1.2) APTT (22.0-30.0) sec Sodium 143 (137-145) mmol/L Potassium 3.8 (3.5-5.1) mmol/L Chloride 109 H (98-107) mmol/L Carbon Dioxide 30 (22-30) mmol/L Anion Gap 4 mmol/L BUN 11 (7-17) mg/dL Creatinine 0.41 L (0.52-1.04) mg/dL Est GFR (CKD-EPI)AfAm >90 (>60 ml/min/1.73 sqM) Est GFR (CKD-EPI)NonAf >90 (>60 ml/min/1.73 sqM) Glucose 90 (74-99) mg/dL Calcium 8.6 (8.4-10.2) mg/dL Magnesium 1.7 (1.6-2.3) mg/dL Total Bilirubin 0.3 (0.2-1.3) mg/dL AST 12 L (14-36) U/L ALT 15 (9-52) U/L Alkaline Phosphatase 83 (38-126) U/L Troponin I (0.000-0.034) ng/mL NT-Pro-B Natriuret Pep 72 pg/mL Total Protein 6.7 (6.3-8.2) g/dL Albumin 3.4 L (3.5-5.0) g/dL Amylase 77 (30-110) U/L Lipase 142 (23-300) U/L 09/03/18 09/03/18 Range/Units 09:45 09:45 WBC (3.8-10.6) k/uL RBC (3.80-5.40) m/uL Hgb (11.4-16.0) gm/dL Hct (34.0-46.0) % MCV (80.0-100.0) fL MCH (25.0-35.0) pg MCHC (31.0-37.0) g/dL RDW (11.5-15.5) % Plt Count (150-450) k/uL Neutrophils % % Lymphocytes % % Monocytes % % Eosinophils % % Basophils % % Neutrophils # (1.3-7.7) k/uL Lymphocytes # (1.0-4.8) k/uL Monocytes # (0-1.0) k/uL Eosinophils # (0-0.7) k/uL Basophils # (0-0.2) k/uL PT 10.1 (9.0-12.0) sec INR 0.9 (<1.2) APTT 23.6 (22.0-30.0) sec Sodium (137-145) mmol/L Potassium (3.5-5.1) mmol/L Chloride (98-107) mmol/L Carbon Dioxide (22-30) mmol/L Anion Gap mmol/L BUN (7-17) mg/dL Creatinine (0.52-1.04) mg/dL Est GFR (CKD-EPI)AfAm (>60 ml/min/1.73 sqM) Est GFR (CKD-EPI)NonAf (>60 ml/min/1.73 sqM) Glucose (74-99) mg/dL Calcium (8.4-10.2) mg/dL Magnesium (1.6-2.3) mg/dL Total Bilirubin (0.2-1.3) mg/dL AST (14-36) U/L ALT (9-52) U/L Alkaline Phosphatase (38-126) U/L Troponin I <0.012 (0.000-0.034) ng/mL NT-Pro-B Natriuret Pep pg/mL Total Protein (6.3-8.2) g/dL Albumin (3.5-5.0) g/dL Amylase (30-110) U/L Lipase (23-300) U/L - Radiology Data Radiology results: report reviewed EKG shows normal sinus rhythm cannot rule out anterior infarct age undetermined. Ventricular rate of 88 bpm. MA interval is 138 ms. QRS duration 70 ms. QTC 366/442 ms. Disposition Clinical Impression: Arm paresthesia, left, Dizziness, Pneumonia Disposition: ADMITTED IP TO THIS HOSP Condition: Stable Is patient prescribed a controlled substance at d/c from ED?: No Referrals: Prince Koch MD [Primary Care Provider] - 1-2 days Time of Disposition: 13:18
[2018-09-03 10:12] LABS: Basophils % (A) 0 %; Eosinophils # (A) 0.3 k/uL (0-0.7); Eosinophils % (A) 3 %; HCT 40.5 % (34.0-46.0); HGB 13.3 gm/dL (11.4-16.0); Lymphocytes # (A) 3.2 k/uL (1.0-4.8); Lymphocytes % (A) 35 %; MCH 28.9 pg (25.0-35.0); MCHC 32.8 g/dL (31.0-37.0); MCV 88.1 fL (80.0-100.0); Mean Platelet Volume 7.5; Monocytes # (A) 0.4 k/uL (0-1.0); Monocytes % (A) 4 %; Neutrophils # (A) 5.1 k/uL (1.3-7.7); Neutrophils % (A) 56 %; Platelet Count 340 k/uL (150-450); RBC 4.59 m/uL (3.80-5.40); RDW 14.2 % (11.5-15.5); WBC 9.1 k/uL (3.8-10.6)
[2018-09-03 10:20] LABS: INR 0.9 (<1.2); Partial Thromboplastin Time 23.6 sec (22.0-30.0); Prothrombin Time 10.1 sec (9.0-12.0)
[2018-09-03 10:25] LABS: ALT 15 U/L (9-52); AST 12 U/L (14-36); African American GFR (CKD) >90 (>60 ml/min/1.73 sqM); Albumin 3.4 g/dL (3.5-5.0); Alkaline Phosphatase 83 U/L (38-126); Amylase 77 U/L (30-110); Anion Gap 4 mmol/L; Blood Urea Nitrogen 11 mg/dL (7-17); Calcium 8.6 mg/dL (8.4-10.2); Carbon Dioxide 30 mmol/L (22-30); Chloride 109 mmol/L (98-107); Glucose 90 mg/dL (74-99); Lipase 142 U/L (23-300); Magnesium 1.7 mg/dL (1.6-2.3); Potassium 3.8 mmol/L (3.5-5.1); Sodium 143 mmol/L (137-145); Total Bilirubin 0.3 mg/dL (0.2-1.3); Total Protein 6.7 g/dL (6.3-8.2)
--- NOTE | 2018-09-03 10:34 | XR ---
EXAMINATION TYPE: XR chest 2V DATE OF EXAM: 09/03/2018 COMPARISON: Prior chest x-ray 01/18/2017 HISTORY: Chest pain, cough TECHNIQUE: Frontal and lateral views of the chest are obtained. FINDINGS: There is no pleural effusion or pneumothorax seen. There is increased density superimposed over the lower thoracic spine on the lateral view, likely an infrahilar location on the frontal view . The cardiac silhouette size is within normal limits. The osseous structures are intact. There are overlying cardiac leads. IMPRESSION: Correlate for right lower lobe pneumonia. Follow-up recommended.
--- NOTE | 2018-09-03 10:40 | CT ---
EXAMINATION TYPE: CT brain wo con DATE OF EXAM: 09/03/2018 HISTORY: Lt arm numbness, Lt leg numbness CT DLP: 1099.4 mGycm. Automated Exposure Control for Dose Reduction was Utilized. TECHNIQUE: CT scan of the head is performed without contrast. COMPARISON: CT brain July 12, 2017. FINDINGS: There is no acute intracranial hemorrhage or midline shift identified. There is diffuse v entricular and sulcal prominence consistent with diffuse age-related cerebral atrophy maurice-white moncho er differentiation maintained. A 1.5 cm mucous retention cyst or polyp in the inferior posterior righ t maxillary sinus is redemonstrated . The globes are intact and the visualized sinuses are otherwise clear. IMPRESSION: No acute intracranial hemorrhage or midline shift. There is [id number] diffuse ag e-related cerebral atrophy redemonstrated without significant interval change.
--- NOTE | 2018-09-03 11:15 | US ---
EXAMINATION TYPE: US venous doppler duplex LE LT DATE OF EXAM: 09/03/2018 11:02 AM COMPARISON: US November 25, 2014 CLINICAL HISTORY: Pain. Left leg swelling SIDE PERFORMED: Left TECHNIQUE: The lower extremity deep venous system is examined utilizing real time linear array sonog mari with graded compression, doppler sonography and color-flow sonography. VESSELS IMAGED: External Iliac Vein (EIV) Common Femoral Vein Deep Femoral Vein Greater Saphenous Vein * Femoral Vein Popliteal Vein Small Saphenous Vein * Proximal Calf Veins (* superficial vessels) Left Leg: Appears negative for DVT Grayscale, color doppler, spectral doppler imaging performed of the deep veins of the left lower extr emity. There is normal flow, compressibility, vascular waveforms. IMPRESSION: No ultrasound evidence for acute DVT in the left lower extremity.
[2018-09-03] MEDS ORDERED: AZITHROMYCIN 500 MG TAB PO STA (13:17)
[2018-09-03] MEDS ORDERED: cefTRIAXone IN SWFI 1,000 MG/10 ML SYRINGE IVP STA (13:17)
[2018-09-03] MEDS ORDERED: PNEUMONIA PROTOCOL UTILIZED 1 EACH MISC PO PRN (13:20)
--- NOTE | 2018-09-03 15:12 | US ---
EXAMINATION TYPE: US carotid duplex BILAT DATE OF EXAM: 09/03/2018 COMPARISON: NONE CLINICAL HISTORY: TIA. EXAM MEASUREMENTS: RIGHT: Peak Systolic Velocity (PSV) cm/sec ----- Right CCA: 73.2 ----- Right ICA: 71.4 ----- Right ECA: 59.2 ICA/CCA ratio: 1.0 RIGHT: End Diastole cm/sec ----- Right CCA: 20.9 ----- Right ICA: 28.7 ----- Right ECA: 13.9 LEFT: Peak Systolic Velocity (PSV) cm/sec ----- Left CCA: 79.2 ----- Left ICA: 70.2 ----- Left ECA: 53.3 ICA/CCA ratio: 0.9 LEFT: End Diastole cm/sec ----- Left CCA: 19.7 ----- Left ICA: 32.9 ----- Left ECA: 7.8 VERTEBRALS (direction of flow): Right Vertebral: Antegrade Left Vertebral: Antegrade Rhythm: Normal Valentino scale images show no significant plaque formation carotid bulb level bilaterally. Velocity measu rements and ratios are within normal limits. IMPRESSION: No hemodynamic significant stenosis is seen in either internal carotid artery. Criteria for Assigning % of Stenosis / Diameter reduction (Estimation based on the indirect measurements of the internal carotid artery velocities (ICA PSV). 1. Normal (no stenosis)=ICA PSV < 125 cm/s: ratio < 2.0: ICA EDV<40 cm/s. 2. Less than 50% stenosis=ICA PSV < 125 cm/s: ratio < 2.0: ICA EDV<40 cm/s. 3. 50 to 69% stenosis=ICA PSV of 125 to 230 cm/s: ration 2.0 ? 4.0: ICA EDV 40-100 cm/s. 4. Greater than 70% stenosis to near occlusion= ICA PSV > 230 cm/s: ratio > 4.0: ICA EDV > 100 cm/s. 5. Near occlusion= ICA PSV velocities may be low or undetectable: variable ratio and ICA EDV. 6. Total occlusion=unable to detect flow.
--- NOTE | 2018-09-03 17:43 | P.HPIM ---
History of Present Illness H&P Date: 09/03/18 (TIA, right lower lobe pneumonia, fibromyalgia requesting pain medication) Chief Complaint: Slight headache dizziness left arm and left leg tingling and right LL pneum Admission history and physical by Dr. Naqvi date of service 09/03/2018. PCP Dr. Prince Koch and dictating the history and physical by Dr. Naqvi. Presented to the emergency room with the chief complain extremity problem with the left leg swelling and the left hand numbness and left leg numbness. History of present illness: 52 years old -[place] Islander female she presented to the emergency room stated that she had yesterday and today slight headache, dizziness, left arm tingling and she felt that she walking around as a drunk. This swelling over her left leg intermittent and it goes away when she elevates her legs. No cardiac history no history of WA however the EKG indicating possibility of old anteroseptal WA. She had no chest pain but she had dull headache no visual changes and no fever no chills. She has no known ALLERGY. In the past history Past history: She had history of smoking 1 pack per day however she cut down recently to 1 pack every 3 days. She smoked marijuana. She has a history of anxiety bipolar and depression. Family history she had 3 sons delivered by . Patient had past history of degenerative disc disease and the underlying remote history of gonorrhea and chlamydia in 1998. She has abdominal history for lipoma removed, she has history of lipoma in the back large 4 inches on the back of the right shoulder below the scapula, she has also smaller one lower in the left side of the midline on the back 1-1/2 inches approximately. She has fibromyalgia, she was treated in the past by neurology and pain clinic and they have been giving her injections in the back, recently she is dismissed. She stated that she has medication however no clear evidence as she doesn't remember them if she is taken them are not. History of COPD and the past Medication list: From Dr. Koch office #1 elavil 50 mg daily at bedtime she denied that #2 Cymbalta 60 mg daily #3 Lipitor 20 mg daily at at bedtime . #3 Lipitor 20 mg daily at bedtime. Number #4 Zyrtec 10 mg daily. #5 Motrin 600 mg 3 times a day. #6 Lasix 20 mg daily. #7 potassium chloride 10 mEq daily patient not using it. #8 Xanax 0.5 mg 3 times a day when necessary. She said that she was seeing psychiatry and Dr. Ortiz offic [facility]. Review of system: She is currently conscious alert oriented there is no numbness in her left arm or left leg at the time of the examination in the ER module 9. However she is requesting pain medication and states that the Percocet is the one that she use however was not present and Dr. Koch note and apparently she is in pain clinic and may be has habitual narcotic. Pulmonary she may have history of asthma however there is no exacerbation, COPD Heart no arrhythmia however the EKG indicating that she has old anterior infarction. GI no nausea no vomiting no diarrhea or constipation no hematochezia or hematemesis or melena. no symptoms of dysuria or hematuria. Endocrine no history of hypothyroidism or diabetes mellitus or treatment for. She has underlying arthritis and that she was given injection by Dr. Ortiz however she is out of the office and she may need other pain clinic if she continue to use narcotic. No other contributing Mendoza of review of system for the current condition. And she did not have similar episodes in the past. Family history: Her mom young in the 30s with history of AIDS secondary to injection of drug abuse. Her father with history of AIDS and alcoholism. On examination today NH his initial vital sign indicating temperature 98.7 F orally pulse rate 98 respiratory rate 20 blood pressure 143/89 and oxygen 93 permanent low. Patient is conscious alert alert oriented 3 with the complain of numbness in the arm and leg and slight headache which has been resolved with a questionable of TIA. Patient underwent computed tomography scan essentially negative and the carotid duplex is negative that echocardiogram is pending and consultation with neurology, pulmonary for evaluation and treatment with the suspicious of pneumonia however the lipoma in the right side of the back with some summation of the shadow could be presented is right lower lobe infiltrate we'll be consulting Dr. Scanlon the pulmonary and critical care. Her HEENT: Head was normocephalic and atraumatic, pupil was equal reactive, conjunctivae was pink, sclera nonicteric, extraocular muscle movement intact. Normal hearing, oropharynx natural teeth uvula midline. No ulceration. Fatoumata no rhinitis. Neck: Supple no JVD no thyromegaly no lymphadenopathy trachea midline. Chest clear to auscultation percussion I could not elicited decreased air entry on the right lower lobe. Heart PMI in the fifth intercostal space mildly outside midclavicular line normal S1 and S2 no gallop and regular sinus rhythm. Abdomen: Soft positive bowel sounds no organ enlargement. Her back there is a lipoma below the scapula large as well as lipoma small on the left side of midline and she had previously removed lipoma from the abdomen area. Extremities: Positive pulses bilateral, no edema, straight leg elevation bilateral was negative, plantar reflex was present normal Babinski, deep tendon reflexes still plus bilaterally. Extremities: Minimal difference between the right and the left motor. The cranial nerves intact 2 through 12 and she is ambulatory Assessment: #1 right lower lobe pneumonia with the and significant symptoms. #2 fibromyalgia #3 depression and anxiety bipolar #4 underlying chronic pain syndrome. #5 hyper lipidemia #6 hypertension. 7 obesity BMI is 37.5 kg/m. Plan: Patient currently on hold in the ER. #2 with a heart rate in the 90 and history of headache will start beta hanny once a day which will help the headache and increased heart rate as well as blood pressure Corgard. #3 patient currently please on antibiotic through the ER for the pneumonia. And #4 obtain computed tomography scan of the chest to clarify the issue of the pneumonia in the right lower lobe versus summation shadow A lipoma. #5 consultation with the neurologist with the possibility of TIA and patient placed on aspirin will see other instruction. #6 will also ask psychiatrist to see the patient evaluate her bipolar disorder and the chronic pain syndrome at the bipolar and depression and fibromyalgia. Current visit Doppler of the lower extremities negative for DVT, carotid Doppler of the current negative, echocardiogram is pending. 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 History of Any Multi-Drug Resistant Organisms: None Reported Past Surgical History: Section Additional Past Surgical History / Comment(s): abd surgery- lipoma removed. Past Psychological History: Anxiety, Bipolar, Depression Smoking Status: Current every day smoker Past Alcohol Use History: Rare Past Drug Use History: Marijuana - Past Family History Mother Family Medical History: Myocardial Infarction ([place]) Additional Family Medical History / Comment(s): of HIV/AIDS. Medications and Allergies Home Medications Medication Instructions Recorded Confirmed Type No Known Home Medications 09/03/18 09/03/18 History Allergies Allergy/AdvReac Type Severity Reaction Status Date / Time No Known Allergies Allergy Verified 09/03/18 09:37 Physical Exam Vitals: Vital Signs Temp Pulse Pulse Resp BP BP Pulse Ox 09/03/18 15:08 98 F 90 18 123/98 97 09/03/18 13:44 89 88 16 123/94 123/94 99 09/03/18 12:13 98.0 F 89 16 151/89 99 09/03/18 10:00 88 16 130/98 99 09/03/18 09:08 98.7 F 98 20 143/89 93 L Intake and Output 09/03/18 09/03/18 09/03/18 06:59 14:59 22:59 Other: Weight 99.201 kg Results CBC & Chem 7: 09/03/18 09:45 09/03/18 09:45 Labs: Abnormal Lab Results - Last 24 Hours (Table) 09/03/18 Range/Units 09:45 Chloride 109 H (98-107) mmol/L Creatinine 0.41 L (0.52-1.04) mg/dL AST 12 L (14-36) U/L Albumin 3.4 L (3.5-5.0) g/dL
[2018-09-03 18:05] VITALS: BMI 37.5
[2018-09-03 18:08] LABS: Amorphous Sediment,Urine Occasional /hpf; Appearance,Urine Cloudy (Clear); Bacteria,Urine Moderate /hpf; Bilirubin,Urine Negative (Negative); Blood,Urine Small (Negative); Color,Urine Light Yellow; Glucose,Urine (UA) Negative (Negative); Ketones,Urine Negative (Negative); Leukocyte Esterase,Urine Negative (Negative); Nitrite,Urine Negative (Negative); PH, Urine 7.5 (5.0-8.0); Protein,Urine Negative (Negative); RBC,Urine 7 /hpf (0-5); Specific Gravity,Urine 1.012 (1.001-1.035); Squamous Epithelial Cell,Urine 14 /hpf (0-4); Urobilinogen,Urine <2.0 mg/dL (<2.0)
--- NOTE | 2018-09-03 19:00 | CT ---
EXAMINATION TYPE: CT chest angio for PE DATE OF EXAM: 09/03/2018 COMPARISON: None HISTORY: Shortness of breath CT DLP: 527.3 mGycm Automated exposure control for dose reduction was used. CONTRAST: CT Chest for pulmonary embolism performed with with IV Contrast, patient injected with 100 mL of Isov ue 370. There are 3-D post processed images. FINDINGS: The lungs are clear of infiltrate. There is no evidence of a pulmonary mass. There is no pleural effu timothy. There is no adrenal mass. Upper abdominal soft tissues are intact. Thoracic aorta shows no evid ence of aneurysm or dissection. There is 10 mm anterior mediastinal lymph node. There are no hilar ma sses. There is normal contrast opacification of the pulmonary arteries. I see no filling defect. Thoracic vertebra appear intact. The ribs appear intact. IMPRESSION: No evidence of pulmonary embolism. Nonspecific small anterior mediastinal lymph nodes.
[2018-09-03] MEDS ORDERED: IBUPROFEN 600 MG TAB PO PRN (19:03)
[2018-09-03] MEDS ORDERED: LORazepam 0.5 MG TAB PO PRN (19:04)
[2018-09-03] MEDS: GABAPENTIN 100 MG CAP PO SCH (20:50)
[2018-09-03] MEDS ORDERED: FAMOTIDINE 20 MG/2 ML VIAL IV SCH (21:00)
[2018-09-04 06:15] LABS: Basophils % (A) 0 %; Eosinophils # (A) 0.3 k/uL (0-0.7); Eosinophils % (A) 3 %; HCT 37.7 % (34.0-46.0); HGB 12.1 gm/dL (11.4-16.0); Lymphocytes # (A) 3.4 k/uL (1.0-4.8); Lymphocytes % (A) 38 %; MCH 28.7 pg (25.0-35.0); MCHC 32.2 g/dL (31.0-37.0); MCV 89.3 fL (80.0-100.0); Mean Platelet Volume 7.4; Monocytes # (A) 0.3 k/uL (0-1.0); Monocytes % (A) 3 %; Neutrophils # (A) 4.8 k/uL (1.3-7.7); Neutrophils % (A) 54 %; Platelet Count 284 k/uL (150-450); RBC 4.22 m/uL (3.80-5.40); RDW 14.2 % (11.5-15.5); WBC 8.9 k/uL (3.8-10.6)
[2018-09-04 06:22] LABS: African American GFR (CKD) >90 (>60 ml/min/1.73 sqM); Anion Gap 4 mmol/L; Blood Urea Nitrogen 12 mg/dL (7-17); Calcium 8.7 mg/dL (8.4-10.2); Carbon Dioxide 28 mmol/L (22-30); Chloride 108 mmol/L (98-107); Cholesterol 169 mg/dL (<200); Glucose 87 mg/dL (74-99); HDL Cholesterol 45 mg/dL (40-60); LDL Cholesterol,Calculated 113 mg/dL (0-99); Potassium 3.9 mmol/L (3.5-5.1); Sodium 140 mmol/L (137-145); Triglycerides 55 mg/dL (<150)
[2018-09-04] MEDS: PANTOPRAZOLE 40 MG TABLET PO SCH (06:36)
[2018-09-04] MEDS: GABAPENTIN 100 MG CAP PO SCH ×3 (08:03→22:29)
[2018-09-04] MEDS: ASPIRIN 81 MG PO SCH (08:03)
[2018-09-04] MEDS ORDERED: AZITHROMYCIN 500 MG TAB PO SCH (09:00)
[2018-09-04] MEDS ORDERED: ASPIRIN 325 MG TAB PO SCH (09:00)
--- NOTE | 2018-09-04 10:16 | ECHOF ---
Referral Reason:EKG anterior infar old,TIA MEASUREMENTS -------- HEIGHT: 162.6 cm WEIGHT: 98.9 kg BP: RVIDd: 2.1 cm (< 3.3) IVSd: 1.4 cm (0.6 - 1.1) LVIDd: 4.2 cm (3.9 - 5.3) LVPWd: 1.5 cm (0.6 - 1.1) IVSs: 1.9 cm LVIDs: 2.0 cm LVPWs: 1.9 cm LAESV Index (A-L): 23.13 ml/m Ao Diam: 2.9 cm (2.0 - 3.7) AV Cusp: 1.9 cm (1.5 - 2.6) LA Diam: 3.0 cm (2.7 - 3.8) MV EXCURSION: 17.896 mm (> 18.000) MV EF SLOPE: 123 mm/s (70 - 150) EPSS: 0.7 cm MV E Yazan: 0.83 m/s MV DecT: 185 ms MV A Yazan: 0.98 m/s MV E/A Ratio: 0.84 RAP: 5.00 mmHg RVSP: 11.69 mmHg FINDINGS -------- Sinus rhythm. This was a technically good study. The left ventricular size is normal. There is moderate concentric left ventricular hypertrophy. O verall left ventricular systolic function is normal with, an EF between 55 - 60 %. The right ventricle is normal in size. Normal LA size by volume 22+/-6 ml/m2. The right atrial size is normal. Interatrial and interventricular septum intact. The aortic valve is trileaflet, and appears structurally normal. No aortic stenosis or regurgitation. The mitral valve is normal. Mild mitral regurgitation is present. The tricuspid valve appears structurally normal. Trace tricuspid regurgitation present. Right korina tricular systolic pressure is normal at < 35 mmHg. The right ventricular systolic pressure, as david ured by Doppler, is 11.69mmHg. There is no pulmonic regurgitation present. The aortic root size is normal. Normal inferior vena cava with normal inspiratory collapse consistent with estimated right atrial pre ssure of 5 mmHg. There is no pericardial effusion. CONCLUSIONS -------- 1. Sinus rhythm. 2. This was a technically good study. 3. The left ventricular size is normal. 4. There is moderate concentric left ventricular hypertrophy. 5. Overall left ventricular systolic function is normal with, an EF between 55 - 60 %. 6. Normal LA size by volume 22+/-6 ml/m2. 7. The aortic valve is trileaflet, and appears structurally normal. No aortic stenosis or regurgitati on. 8. The mitral valve is normal. 9. Mild mitral regurgitation is present. 10. The tricuspid valve appears structurally normal. 11. Trace tricuspid regurgitation present. 12. Right ventricular systolic pressure is normal at < 35 mmHg. 13. There is no pulmonic regurgitation present. 14. The aortic root size is normal. 15. There is no pericardial effusion. RADAR ENGINEER: Lucy Titus RDCS
--- NOTE | 2018-09-04 14:34 | P.PN ---
Subjective Progress Note Date: 09/04/18 (TIA, right lower lobe pneumonia has been cleared with the CT of the chest negative for infiltrate) Principal diagnosis: Diagnosis: #1 TIA patient underwent computed tomography scan of the brain negative, MRI of the brain scheduled for today in the afternoon waiting for the result subsequently. No residual neuromuscular deficit. #2 echocardiogram negative with only mitral regurg normal ejection fraction. #3 carotid Doppler study, no hemodynamic significant stenosis. #4 chest x-ray was suspicious of right lower lobe pneumonia, CT angiogram was negative for PE and negative. For pneumonia antibiotic discontinued. Apparently the examination of the lipoma large on the back of the right side below the scapula with the same medication picture of the chest x-ray: The confusion over the presence of infiltrate or pneumonia in the emergency room however the CAT scan clarified these confusion and no pneumonia and patient off the antibiotic. #5 left lower extremities venous insufficiency with a history of edema, however venous duplex study indicate normal with no evidence of DVT. Which done on admission in the ER. #6 urologically seen by the neurologist, patient ambulatory and no lateralizing sign no neuro deficit, and the plan for the MRI to be done with the expectation if it is normal we'll be discharging today or tomorrow depending on the reading the results. #7 fibromyalgia started on gabapentin been pain. #8 history of habituation on Xanax currently changed to Ativan. #9 chronic pain syndrome no narcotics started on ibuprofen 600 mg every 6 hour when necessary. #10 history of depression and bipolar and anxiety. Not seen yet by the psychiatry's. Progress note date of service 09/04/2018. Dictation by Dr. Dennise Manriquez [facility]. Patient seen and examined [id number]. Discussed with the patient in detail the current diagnosis, she seen already by the neurologist however I don't have their dictation on the computer, she is still not seen by the psychiatrist with history of bipolar and depression and anxiety and the use of Xanax. In the chest x-ray that in the ER thought to be right lower lobe pneumonia, this started on the protocol, however clinically does not fit for the pneumonia, and found that she had large lipoma on the back below the scapula which indicated that his summation shadow will be lost like infiltrate in the right lower lung, subsequently a computed tomography scan angiogram to rule out also PE was ordered, found that with no evidence of PE or infiltrate or pneumonia. Subsequently the antibiotic was discontinued. New The neurologist did see the patient and he ordered MRI of the brain will be done around 4 4:30 in the PM and we will be waiting for the result of the reading by the radiologist as well as well as the opinion of the neurologist. Her psychiatrist did not see the patient yet and we need to remind them that we need the consultation especially patient has bipolar, depression, anxiety and she has been on for a long time of Xanax with the habitual effect. Patient has chronic pain syndrome and she was on narcotic and she was requesting at the time of admission Percocet which no need for it at this point she was seen in the past by Dr. Ortiz and he excused her to see him again however patient if she has chronic pain needs to see a different pain clinic that presents as outpatient. Her EKG was no acute abnormalities except to that questionable anterior HI however that could be also associated with COPD and chronic smoker with increased anteroposterior diameter. Echocardiogram was negative with the underlying mitral regurg mild nonsymptomatic. With the ejection fraction is normal. Carotid duplex study no evidence of hemodynamic stenosis. Computed tomography scan angiogram indicating no PE and no infiltrate of the lung and no pneumonia. Venous duplex study in the ER showed negative DVT. Hypertension is controlled, hyperlipidemia and started on the Lipitor again 10 mg. On the physical exam: Patient conscious alert oriented 3 ambulatory no lateralizing sign no neuro deficit. Neck was supple no JVD no thyromegaly no lymphadenopathy trachea midline. Chest clear to auscultation and percussion with the increased anteroposterior diameter with normal variation of the lung bilaterally. The back she has lipoma large lipoma 4-5 inches in diameter below the scapula which causes a summation of the picture of of the shadow in the lower lung barrientos. The heart regular sinus rhythm with soft murmur left sternal border with history of mitral regurg. Abdomen positive bowel sound no organ enlargement and no tenderness in the 4 quadrants. Extremities: No edema and bolus right or left lower extremities and positive pulses. Neurologically: Stable no lateralizing sign however we waiting for the MRI o rdered by the neurologist. Psychiatry she had history of bipolar and depression and anxiety and we are awaiting for the psych evaluation to be done prior to discharge. Assessment and plan: TIA, hyperlipidemia, hypertension, history of bipolar, depression, anxiety. Ambulate as tolerated. Lipitor 10 mg once a day at bedtime. We'll wait for the opinion of the psychiatrist and [id number] to [facility] or a psychiatrist as outpatient in the future however we asking the psychiatry to evaluate for now and if there is any other medication needs to be given prior of the discharge especially patient bipolar with depression and history of fibromyalgia and chronic pain syndrome and asking for narcotic. Objective - Vital Signs Vital signs: Vital Signs Temp 98.8 F 09/04/18 07:31 Pulse 89 09/04/18 12:00 Resp 16 09/04/18 12:00 BP 128/81 09/04/18 12:00 Pulse Ox 97 09/04/18 12:00 Intake & Output 09/03/18 09/04/18 09/04/18 18:59 06:59 18:59 Intake Total 360 150 480 Balance 360 150 480 Weight 99.201 kg 99.2 kg Intake: IV 150 Sodium Chloride 0.9% 1, 150 000 ml @ 75 mls/hr IV . [id number] STA Rx#:[id number] Oral 360 480 Other: Voiding Method Toilet # Voids 1 2 - Labs CBC & Chem 7: 09/04/18 05:40 09/04/18 05:40 Labs: Abnormal Lab Results - Last 24 Hours (Table) 09/03/18 09/04/18 Range/Units 17:55 05:40 Chloride 108 H (98-107) mmol/L Creatinine 0.46 L (0.52-1.04) mg/dL LDL Cholesterol, Calc 113 H (0-99) mg/dL Urine Appearance Cloudy H (Clear) Urine Blood Small H (Negative) Urine RBC 7 H (0-5) /hpf Urine WBC 12 H (0-5) /hpf Ur Squamous Epith Cells 14 H (0-4) /hpf Amorphous Sediment Occasional H (None) /hpf Urine Bacteria Moderate H (None) /hpf Microbiology - Last 24 Hours (Table) 09/03/18 17:55 Urine Culture - Preliminary Urine,Voided
--- NOTE | 2018-09-04 15:34 | CONS ---
CONSULTATION DATE OF SERVICE: 09/04/2018. REFERRING PHYSICIAN: Dr. Naqvi. HISTORY OF PRESENT ILLNESS: Thank you for allowing me to evaluate Melania Lynn who is a 52-year-old right-handed female who presented to [facility] on 09/03/2018 for evaluation of symptoms which occurred over the past 2 days. The patient states that she has had left lower extremity swelling for several months, which tends to go down if she elevates the leg. She mentioned this in the emergency room and further testing was pursued including a left lower extremity venous Doppler which was negative for DVT. The primary issue that prompted presentation to the emergency room and this neurologic consultation was symptoms which began when the patient was at work 2 days ago. She states she was not feeling well, developed a "bad" headache characterized as a holocephalic pressure sensation which was associated with a vertiginous sensation and a feeling of the patient being off balance on her feet, but she denied consistent veering in one direction. She did not fall. She was able to complete her 8 hour work shift despite this being present and took 2 Tylenol for the headache. The headache did make her nauseated and she had a small amount of emesis. She was also photophobic and more prominently phonophobic. She denies previous history of migraine. Following work, the patient went home and noted numbness involving her left hand and left lower extremity, particularly in the region of the calf. There was no numbness on the right or involving the left side of the face. There was no associated dysarthria, difficulty chewing/swallowing, focal weakness involving the extremities, or facial droop. The next morning, the patient states her vision was blurred bilaterally which lasted 20 minutes and subsequently resolved. The patient denies previous history of stroke or seizure. She denies recent trauma, jaw claudication, tongue cramping or scalp tenderness. At this time, the patient states her symptoms have significantly improved. The headache has resolved, vision has returned to baseline and numbness which previously affected the hand distal to the wrist and now only affects the fingertips and there is no vertigo. ALLERGIES: No known drug allergies. HOME MEDICATIONS: The patient's home medication list from her physician apparently contained Elavil, Cymbalta, Lipitor, Zyrtec, Motrin, Lasix, potassium, and Xanax, although the patient states the only medication she was actually taking at home included Motrin p.r.n., Xanax p.r.n., and Lyrica 150 mg b.i.d. PAST MEDICAL HISTORY: Tobacco abuse, bipolar disorder (patient states she has not seen psych in a while), fibromyalgia, COPD, obesity, hyperlipidemia, and previous pulmonary nodule status post PET scan on 01/27/2017, which was unrevealing. PAST SURGICAL HISTORY: Lipoma removal, and x3. SOCIAL HISTORY: The patient smokes 1 pack every 3 days and rarely consumes alcohol. She reports marijuana use but no other illicit drugs. She is single with 3 sons and lives in a house with her son and grandchild. She states she occasionally uses a single prong cane over the past year when her right knee "goes out." FAMILY HISTORY: There is family history of Chiari malformation in the patient's niece. The patient's parents are . Father had history of EtOH abuse and emphysema. Mother had myocardial infarction, father also had a history of seizures. There is no family history of migraine or stroke at young age. REVIEW OF SYSTEMS: Fourteen systems are reviewed and no additional points are identified. The review of systems documented in history and physical. PHYSICAL EXAM: Upon my arrival to the patient's room, she was sitting at the side of bed, receptive to the examiner. Affect is mildly flat, she is obese, deconditioned, there are multiple family members at the bedside and the patient appears younger than stated age. VITAL SIGNS: Blood pressure is 134/85 with a pulse of 88, respiratory rate 16, temperature is 98.8, weight is 99.2 kg on a 5 foot 4 inch frame. Skin/extremities: There is a hyperpigmented patch over the anterior aspect of the right calf, which patient states is related to previous injury. Head and neck: No tenderness or signs of trauma. NECK: Supple without meningeal signs. Arteries are nontender and without bruits. HEART: Regular rate and rhythm. HIGHER CORTICAL FUNCTION: MENTAL STATUS: Patient was alert, oriented to time, place, and person. She was able to name repeat and read. There was no right or left disorientation, finger-nose extinction to double simultaneous stimulation or dysarthria. CRANIAL NERVES II through XII: Pupils are equal, round, reactive to light symmetrically. No afferent pupillary defect. Visual barrientos are intact to confrontation with each eye assessed individually. III, IV, no ptosis/extraocular movements are full. No nystagmus. V: Patient reports diminution to pinprick and light touch involving the left side of the face as compared to the right. Motor of 5, intact. VII no facial asymmetry or weakness. Acuity intact to finger rub. IX, X Palate bi in the midline. IX, XI, Trapezius intact. XII tongue protruded midline without fasciculation or atrophy. MOTOR EXAMINATION: There is no pronator drift. Normal bulk and tone is noted in all major muscle groups with no involuntary movements. Strength is 5 out of 5 throughout. Sensory: Patient reports diminution to pinprick and light touch involving the left upper and lower extremity as compared to the right. REFLEXES right side listed first: Biceps to 2+/2+, Brachioradialis 2/2, Triceps 2/2, patella 2/2, ankle 0/0. Plantar responses flexor. Hart's is absent. COORDINATION: [id number], [id number] movements are intact. Rapid alternating movements are symmetric with finger and foot tapping. Gait and station. Patient is able rise from a seated to a seated position without difficulty. She ambulated with a narrow based gait with equal arm swing. She was able to briefly get on her heels and toes. Romberg is negative. DIAGNOSTIC TESTING: The patient had a CT scan of the brain without contrast in the emergency room, which demonstrated atrophy but no acute pathology and the study was felt to be unchanged compared to previous CT from 07/12/2017. Chest x-ray was consistent with a right lower lobe pneumonia. Left lower extremity venous Doppler revealed no DVT. CTA of the chest demonstrated no pulmonary embolus. LAB WORK: Demonstrates a white blood count of 8.9, hemoglobin of 12.1, platelet count 284. Sodium 140, potassium 3.9, BUN 12 with creatinine of 0.46. INR 0.9. Calcium 8.7, ALT 15, AST 12. Troponin negative. Magnesium 1.7. Cholesterol 169 with LDL 113, HDL 45. Urinalysis demonstrated 12 WBCs, 7 RBCs, negative nitrite and leuko esterase. IMPRESSION: 1. On 09/02/2018 while the patient was at work, she developed a holocephalic headache with nausea, a small amount of emesis, vertigo, gait imbalance (without veering in 1 direction) and after completing her shift, developed left hand/left lower extremity numbness while at home. The next day, the patient had bilateral visual blurring. Differential diagnosis would include posterior circulation ischemic event versus migrainous phenomenon. The patient denies symptoms to suggest temporal arteritis and denies previous history of migraine. At this time, the headache, vertigo, and visual changes have resolved. Risk factors for stroke include tobacco abuse, obesity, and hyperlipidemia. The patient was not on aspirin or other anti-platelet/anticoagulant medication at the time of this event. 2. Right lower lobe pneumonia per chest x-ray, CTA of the chest demonstrated no pulmonary embolus. 3. Bipolar disorder. 4. Fibromyalgia. The patient reports neck/back and shoulder pain related to this diagnosis, which did not significantly worsen when the symptoms described in #1 developed. She is maintained on Lyrica in this regard. 5. Chronic obstructive pulmonary disease. 6. Noncompliance with medications. 7. Family history of Chiari malformation. RECOMMENDATIONS: 1. I discussed my impression with the patient and she expressed understanding. 2. For further evaluation, we will obtain MRI of the brain with diffusion- weighted images and MRA of the head/neck vessels with attention to the posterior circulation. 3. We will check sedimentation rate and the patient is maintained on telemetry. 4. CT of the brain demonstrated no acute pathology, carotid ultrasound demonstrated no significant stenosis on either side. An echocardiogram revealed normal left ventricular function with ejection fraction of 55-60 percent, moderate concentric left ventricular hypertrophy (? Underlying hypertension) and normal left atrial/left ventricular size. 5. Monitoring and treatment of blood pressure if felt clinically indicated per primary service. 6. Risk factor modification, which strongly recommend the patient quit smoking and reinitiate Lipitor. 7. Weight loss and regular exercise program is recommended. 8. Will follow with you. Thank you for allowing me to participate in the care of your patient. MMODL / IJN: [id number] / KHANG
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
--- NOTE | 2018-09-04 17:26 | MR ---
EXAMINATION TYPE: MR brain wo/w mrane wo/wcon DATE OF EXAM: 09/04/2018 COMPARISON: None HISTORY: stroke, shortness of breath on admission TECHNIQUE: Multiplanar, multisequence images of the brain and brainstem is performed without and with IV contras t, utilizing 10 mL intravenous Gadavist . FINDINGS: There is mild cerebral cortical atrophy. There is no mass effect nor midline shift. There i s no sign of intracranial hemorrhage. Brainstem is intact. Corpus callosum is intact. Sella turcica a ppears normal. There is no evidence of cortical infarct. Contrast images show no pathologic brain enhancement. There is demonstration of arterial flow in the anterior middle and posterior cerebral arteries. There is arterial flow in the vertebrobasilar artery system. There is normal contrast opacification of the venous sinuses. There is arterial flow in the common internal and external carotid arteries bilaterally. There is wid e patency of the carotid artery bifurcations. There is bilateral arterial flow in the vertebral arter ies which are fairly symmetric. IMPRESSION: Mild atrophy. No acute intracranial abnormality. Negative MR angiogram of the neck. No evidence of carotid or vertebral artery stenosis.
[2018-09-04] MEDS ORDERED: IPRATROPIUM-ALBUTEROL 3 ML NEB INHALATION PRN (19:22)
--- NOTE | 2018-09-04 19:23 | P.CNPUL ---
History of Present Illness Consult date: 09/04/18 Reason for consult: dyspnea, cough, obstructive sleep apnea Chief complaint: Shortness of breath, cough History of present illness: This is a 52-year-old -Mong[place] female who was admitted into the hospital for left leg swelling left arm numbness and left leg numbness from the emergency department she has some tingling sensation also feeling dizzy and lightheaded though symptoms have improved significantly today, she is a smoker and smokes about one pack per day lately have cut down to one third of pack per day workup done in the hospital included duplex ultrasound of the left extremity negative for DVT, admitted accesses history of right lower lobe pneumonia, brain CT is unremarkable, computed tomography scan of the chest are negative for masslike lesion no abnormal infiltrate seen mild mediastinal lymph node prominence has been noted, blood cultures are negative the urine cultures are pending Review of Systems All systems: negative Past Medical History Past Medical History: COPD Additional Past Medical History / Comment(s): nerve damage, degenerative disk, chronic neck and back problems.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 History of Any Multi-Drug Resistant Organisms: None Reported Past Surgical History: Section Additional Past Surgical History / Comment(s): abd surgery- lipoma removed. Past Anesthesia/Blood Transfusion Reactions: No Reported Reaction Past Psychological History: Anxiety, Bipolar, Depression Smoking Status: Current every day smoker Past Alcohol Use History: Rare Past Drug Use History: Marijuana - Past Family History Mother Family Medical History: Myocardial Infarction ([place]) Additional Family Medical History / Comment(s): of HIV/AIDS. Medications and Allergies Home Medications Medication Instructions Recorded Confirmed Type No Known Home Medications 09/03/18 09/03/18 History Allergies Allergy/AdvReac Type Severity Reaction Status Date / Time No Known Allergies Allergy Verified 09/03/18 09:37 Physical Exam Vitals: Vital Signs Temp Pulse Pulse Resp BP Pulse Ox 09/04/18 17:50 97 09/04/18 17:24 98.4 F 89 16 140/85 97 09/04/18 12:00 89 16 128/81 97 09/04/18 07:31 98.8 F 88 16 134/85 09/04/18 04:00 97.9 F 87 18 113/71 09/04/18 00:00 98.5 F 99 18 90/58 09/03/18 20:51 97.4 F L 97 18 120/63 Intake and Output 09/04/18 09/04/18 09/04/18 06:59 14:59 22:59 Intake Total 480 480 Output Total 400 Balance 480 80 Intake: Oral 480 480 Output: Urine 400 Other: # Voids 1 2 Weight 99.2 kg - Constitutional General appearance: average body habitus, cooperative, disheveled, morbidly obese, no acute distress - EENT Eyes: EOMI, PERRLA, poor dentition, normal appearance ENT: normal oropharynx Ears: bilateral: normal - Neck Carotids: bilateral: upstroke normal, bruit absent Thyroid: bilateral: normal size - Respiratory Respiratory: bilateral: CTA - Cardiovascular Rhythm: regular Heart sounds: normal: S1, S2 - Gastrointestinal General gastrointestinal: distended, soft - Integumentary Integumentary: decreased turgor - Neurologic Neurologic: CNII-XII intact - Musculoskeletal Musculoskeletal: gait normal, generalized weakness, strength equal bilaterally - Psychiatric Psychiatric: A&O x's 3, appropriate affect, intact judgment & insight Results - Laboratory Findings CBC and BMP: 09/04/18 05:40 09/04/18 05:40 PT/INR, D-dimer PT 10.1 sec (9.0-12.0) 09/03/18 09:45 INR 0.9 (<1.2) 09/03/18 09:45 Abnormal lab findings: Abnormal Labs 09/03/18 09/03/18 09/04/18 09:45 17:55 05:40 ESR Chloride 109 H 108 H Creatinine 0.41 L 0.46 L AST 12 L Albumin 3.4 L LDL Cholesterol, Calc 113 H Urine Appearance Cloudy H Urine Blood Small H Urine RBC 7 H Urine WBC 12 H Ur Squamous Epith Cells 14 H Amorphous Sediment Occasional H Urine Bacteria Moderate H 09/04/18 05:40 ESR 21 H Chloride Creatinine AST Albumin LDL Cholesterol, Calc Urine Appearance Urine Blood Urine RBC Urine WBC Ur Squamous Epith Cells Amorphous Sediment Urine Bacteria - Diagnostic Findings Chest x-ray: report reviewed, image reviewed CT scan - chest: report reviewed, image reviewed (Even though x-ray is suggestive of pneumonia but computed tomography scan does not show pneumonia) Assessment and Plan Assessment: COPD stable Dizziness lightheadedness secondary due to dehydration Obstructive sleep apnea Morbid obesity Mood disorder depression Plan: Clinically and radiographically patient does not have any pneumonia patient may have a chronic bronchitis or COPD which can be evaluated outpatient basis likely she has obstructive sleep apnea which also needs to be evaluated on outpatient basis will recommend bronchodilator as needed simple oral antibiotics further recommendations pending plan of care as per clinical response of the patient Time with Patient: Greater than 30
[2018-09-04 20:40] LABS: Urine Alcohol Negative (Negative); Urine Barbiturate Negative (Negative); Urine Cocaine Negative (Negative); Urine Methadone Negative (Negative); Urine Opiates Negative (Negative); Urine Phencyclidine Negative (Negative)
[2018-09-04] MEDS ORDERED: ATORVASTATIN 10 MG TAB PO SCH (21:00)
[2018-09-04] MEDS: DOXYCYCLINE 100 MG CAP PO SCH (22:29)
[2018-09-05] MEDS: PANTOPRAZOLE 40 MG TABLET PO SCH (06:38)
--- NOTE | 2018-09-05 09:31 | P.PN ---
Subjective Progress Note Date: 09/05/18 Principal diagnosis: Acute COPD exacerbation, dizziness lightheadedness, dehydration, obstructive sleep apnea, morbid obesity, mood disorder depression 09/05/2018, patient seen eval reexamined during the rounds clinically she has improved decrease cough congestion is present denies any chest pain her computed tomography scan has been reviewed chest x-ray has been reviewed labs and medications reviewed, she would like to go home This is a 52-year-old -[place] female who was admitted into the hospital for left leg swelling left arm numbness and left leg numbness from the emergency department she has some tingling sensation also feeling dizzy and lightheaded though symptoms have improved significantly today, she is a smoker and smokes about one pack per day lately have cut down to one third of pack per day workup done in the hospital included duplex ultrasound of the left extremity negative for DVT, admitted accesses history of right lower lobe pneumonia, brain CT is unremarkable, computed tomography scan of the chest are negative for masslike lesion no abnormal infiltrate seen mild mediastinal lymph node prominence has been noted, blood cultures are negative the urine cultures are pending Objective - Vital Signs Vital signs: Vital Signs Temp 98.8 F 09/05/18 06:00 Pulse 87 09/05/18 09:17 Resp 16 09/05/18 06:00 BP 131/78 09/05/18 06:00 Pulse Ox 95 09/05/18 06:00 Intake & Output 09/04/18 09/05/18 09/05/18 18:59 06:59 18:59 Intake Total 960 240 Output Total 400 Balance 560 240 Weight 99.5 kg Intake: Oral 960 240 Output: Urine 400 Other: # Voids 2 1 - Exam Constitutional General appearance: average body habitus, cooperative, disheveled, morbidly obese, no acute distress - EENT Eyes: EOMI, PERRLA, poor dentition, normal appearance ENT: normal oropharynx Ears: bilateral: normal - Neck Carotids: bilateral: upstroke normal, bruit absent Thyroid: bilateral: normal size - Respiratory Respiratory: bilateral: CTA - Cardiovascular Rhythm: regular Heart sounds: normal: S1, S2 - Gastrointestinal General gastrointestinal: distended, soft - Integumentary Integumentary: decreased turgor - Neurologic Neurologic: CNII-XII intact - Musculoskeletal Musculoskeletal: gait normal, generalized weakness, strength equal bilaterally - Psychiatric Psychiatric: A&O x's 3, appropriate affect, intact judgment & insight - Labs CBC & Chem 7: 09/04/18 05:40 09/04/18 05:40 Labs: Abnormal Lab Results - Last 24 Hours (Table) 09/04/18 09/04/18 Range/Units 05:40 14:29 ESR 21 H (0-20) mm/hr U Benzodiazepines Scrn Positive H (Negative) ng/mL U Cannabinoids Screen Positive H (Negative) ng/mL Microbiology - Last 24 Hours (Table) 09/03/18 17:55 Urine Culture - Final Urine,Voided 09/03/18 13:43 Blood Culture - Preliminary Blood No Growth after 24 hours Assessment and Plan Assessment: COPD with acute exacerbation Dizziness lightheadedness secondary due to dehydration Obstructive sleep apnea Morbid obesity Mood disorder depression Plan: Clinically and radiographically patient does not have any pneumonia patient may have a chronic bronchitis or COPD which can be evaluated outpatient basis likely she has obstructive sleep apnea which also needs to be evaluated on outpatient basis will recommend bronchodilator as needed simple oral antibiotics further recommendations pending plan of care as per clinical response of the patient Time with Patient: Greater than 30
[2018-09-05] MEDS: DOXYCYCLINE 100 MG CAP PO SCH (10:02)
[2018-09-05] MEDS: GABAPENTIN 100 MG CAP PO SCH (10:02)
[2018-09-05] MEDS: ASPIRIN 81 MG PO SCH (10:02)
--- NOTE | 2018-09-05 10:23 | PN ---
PROGRESS NOTE DATE OF SERVICE: 09/05/2018 I had the pleasure of re-evaluating Melania Lynn on the medical floor. The patient is sitting up at the bedside and states she is doing well at this time, she states she is anxious to go home. She states she has been up in the hallway, able to ambulate without any assistive devices, currently denies headache. States vision is back to baseline, has no numbness involving the left lower extremity and the only residual numbness affects the fingertips of the left hand. 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 She states the daycare is closed on the weekends, although she often works 6 or 7 days a week at the factory and states she is "burning the candle at both ends." She became tearful when discussing these issues. CURRENT MEDICATIONS: DuoNeb, aspirin 81 mg q. day, Lipitor, Vibramycin, Neurontin 100 mg t.i.d., Motrin p.r.n., Ativan p.r.n., and Protonix. PHYSICAL EXAM: Upon my arrival to the patient's room, she was sitting at the side of the bed, receiving a breathing treatment, receptive to the examiner, affect is mildly flat, as described above with the patient becoming tearful. She is overweight and appears of stated age. VITAL SIGNS: Blood pressure 131/78 with pulse 83, respirations 16, temperature is 98.8. HIGHER CORTICAL FUNCTION: MENTAL STATUS: Patient was alert and oriented to time, place and person. There was no aphasia or dysarthria. CRANIAL NERVES II through XII are intact. MOTOR EXAMINATION: No pronator drift. Normal bulk and tone is noted in all major muscle groups. Strength is 5/5 throughout. SENSORY: Patient reports mild diminution to pinprick involving the fingertips of the left hand. The remainder of the upper and lower extremities are symmetric. Plantar responses flexor bilaterally. Hart's is absent. COORDINATION: Uxcnum-kv-[id number], zdxy-on-[id number] movements are intact. Rapid alternating movements are symmetric with finger tapping. DIAGNOSTIC TESTING: The patient had an MRI of the brain completed with and without contrast, which demonstrated atrophy but no acute stroke or enhancing lesions were identified. MRA of the neck vessels demonstrated no significant stenosis in the carotid or vertebral arteries. LAB WORK: Lab work demonstrates a white count of 8.9 with hemoglobin of 12.1, platelet count 284. Sodium 140, potassium 3.9, BUN 12 with a creatinine of 0.46. Sedimentation rate 21. Calcium 8.7. Cholesterol 169 with an LDL of 113, HDL 45. Urine tox screen was positive for benzodiazepines and marijuana. IMPRESSION: 1. While at work, the patient developed a holocephalic headache with nausea, emesis, vertigo, gait imbalance, and subsequently left hand/left lower extremity numbness and visual blurring, likely secondary to a migrainous phenomenon. Transient ischemic attack is a possibility, although the patient was still symptomatic at the time the MRI was completed and this demonstrated no evidence of acute ischemia, in addition, no enhancing lesions were identified. MRA of the neck vessels and carotid ultrasound demonstrated no carotid/vertebral stenosis. 2. Right lower lobe pneumonia per chest x-ray. 3. Bipolar disorder. 4. Fibromyalgia. 5. Noncompliance with medications. 6. Family history of Chiari malformation, no Chiari malformation was noted on the patient's MRI. RECOMMENDATION: 1. I reassured the patient her neurologic examination is well maintained and discussed results of diagnostic testing. 2. ESR was 21. 3. Risk factor modification, agree with initiation of aspirin and the patient is strongly recommended to quit smoking. Lipitor has been re-initiated. 4. Weight loss and regular exercise program to tolerance is recommended. 5. Please feel free to contact me if there are further questions from a neurologic standpoint. Thank you for allowing me to participate in the care of your patient. MMODL / IJN: [id number] / KHANG
[2018-09-05 10:50] VITALS: RESP 18
--- NOTE | 2018-09-05 13:36 | P.DS ---
Providers Date of admission: 09/03/18 13:35 Expected date of discharge: 09/05/18 (COPD, dizziness, TIA, paresthesia) Attending physician: Juanjose Naqvi Consults: 09/03/18 13:48 Consult Physician Urgent Consulting Provider: Donovan Scanlon Consult Reason/Comments: rt lower,lung pneumonia Do you want consulting provider notified?: Yes 09/03/18 17:33 Consult Physician Stat Consulting Provider: Sony Dial Consult Reason/Comments: TIA, progressive CVA Do you want consulting provider notified?: Yes 09/03/18 17:45 Consult Physician Stat Consulting Provider: Isaura Fiore Consult Reason/Comments: Bipolar, anxiety, chronic use of Xanax, fibromyalgia Do you want consulting provider notified?: Already Contacted Primary care physician: Prince Koch This is a dictation on the discharge summary date of service 09/05/2018. Diagnosis: #1 COPD with bronchitis exacerbation. #2 TIA #3 hyperlipidemia #4 psychiatric disorder with a history of Xanax dependent, depression, bipolar disorder. #5 obesity. #6 history of fibromyalgia started on Neurontin. Pneumonia has been executed from the diagnosis with negative computed tomography scan of the chest with underlying COPD and bronchitis seen by Dr. Donovan Scanlon pulmonary and critical care. Patient placed on ventilatory inhaler 2 puffs 4 times a day as well as doxycycline and isolate 100 mg twice a day for one week and to follow-up with Dr. Donovan Scanlon. In regard of the numbness and the paresthesia of the left arm, no evidence of cardiac event. Seen by several consulting physician and neurologist and psychiatrist. The psychiatrist indicating that she has been seen in the past by psychiatry however is unknown to me and that she will follow with the [facility] will not be given any Ativan or Xanax until she follows with them and they may evaluate the si tuation and the case in regard of the Cymbalta and the chronic pain syndrome we'll not prescribe more than what she has at home of the ibuprofen. As she stated to follow with psychiatry as outpatient and no farther fenfluramine. Neurologist indicating that the patient had small amount of emesis and vertigo gait imbalance and developed left hand and lower extremities numbness while at home next day she had bilateral visual blurring no symptoms to indicate temporal arthritis or migraine and the headache and vertigo and visual changes resolved she is a smoker tobacco abuse and she had obesity and hyper lipidemia and advised to continue with aspirin once a day no PEs in the past or now and no DVT of the lower extremities she had history of bipolar fibromyalgia chronic obstructive lung disease noncompliance with the medication and history of family history of she had a malformation [facility] I ASHLIE, neurology discussed the currently and MRI ordered and was negative. Today on the discharge examination on discharge: White count 8.9 hemoglobin 12.1 hematocrit 37.7. His her chemistry indicating sodium 140 potassium 3.9 and creatinine 0.46 with the estimated glomerular filtration rate for the -Citizen Of [place] more than 90 and normal blood sugar 87 and calcium is 8.7 and normal. His vital sign indicating today 98.4 temperature F oral and her pulse rate is 87 respiratory rate 18 blood pressure 140/77 with a mean 98 and 97% on room air. Clinical exam patient conscious alert oriented 3 ambulatory. HEENT head was normocephalic and atraumatic pupil was equal reactive and oropharynx negative normal. Neck was supple no JVD no thyromegaly no lymphadenopathy and the carotid duplex study was negative no hemodynamic stenosis. Chest: Increased anteroposterior diameter with the smoking normal breath sound no wheezes no rhonchi's. The heart regular sinus rhythm no dysrhythmia. Abdomen soft positive bowel sounds no organ enlargement. Extremities no edema and positive pulses bilateral. Neurologically no lateralizing sign, normal gait, no tremor creatinine narrative is stable Psychiatric seen by the psychiatrist who advised her with a referral to the [facility] or the psychiatrist for the multiple medical problem. Assessment stable general condition. Follow-up with the [facility] and psychiatry. Follow-up with Dr. Donovan Scanlon the pulmonary and critical. Follow-up with Dr. Prince Koch. Follow-up with Dr. Naqvi in 1 week thank you Patient Condition at Discharge: Stable Plan - Discharge Summary Discharge Rx Participant: No New Discharge Prescriptions: No Action No Known Home Medications Discharge Medication List No Known Home Medications 09/03/18 [History] Follow up Appointment(s)/Referral(s): Juanjose Naqvi MD [STAFF PHYSICIAN] - 09/06/18 11:00 am (Sunday )
[2018-09-05 13:52] VITALS: BP 121/78; PULSE 80; TEMP 98.1
== END 2018-09-05 14:45 | disposition home or self-care (01) ==
LOC: EC 08:51 → 3SCARD 13:35
PROVIDERS: ADMIT Internal Medicine; ATTEND Internal Medicine
DX: J44.1 Chronic obstructive pulmonary disease with (acute) exacerbation (principal); R20.2 Paresthesia of skin; E66.01 Morbid (severe) obesity due to excess calories; Z68.37 Body mass index [BMI] 37.0-37.9, adult; E78.5 Hyperlipidemia, unspecified; E86.0 Dehydration; F17.210 Nicotine dependence, cigarettes, uncomplicated; F31.9 Bipolar disorder, unspecified; F41.9 Anxiety disorder, unspecified; G47.33 Obstructive sleep apnea (adult) (pediatric); D17.1 Benign lipomatous neoplasm of skin and subcutaneous tissue of trunk; G89.4 Chronic pain syndrome; I10 Essential (primary) hypertension; I25.2 Old myocardial infarction; I34.0 Nonrheumatic mitral (valve) insufficiency; I87.2 Venous insufficiency (chronic) (peripheral); M79.7 Fibromyalgia; M19.90 Unspecified osteoarthritis, unspecified site; Z71.6 Tobacco abuse counseling; Z71.3 Dietary counseling and surveillance; Z79.899 Other long term (current) drug therapy; Z87.01 Personal history of pneumonia (recurrent); Z91.14 Patient's other noncompliance with medication regimen; Z82.3 Family history of stroke; Z82.49 Family history of ischemic heart disease and other diseases of the circulatory system; Z82.5 Family history of asthma and other chronic lower respiratory diseases; Z83.0 Family history of human immunodeficiency virus [HIV] disease
CPT/HCPCS: 96361 ×2; 96374; 99285; 36415; 94640; 93005; 93306; 97162; 97535; 97166; 83880; 80061 ×2; 80053; 80048; 85652; 82150; 83690; 83735; 84484; 85025 ×2; 85610; 85730; 81001; 87040; 80306; 87086; 71046; 93971; 93880; 70450; 71275; 70549; 70553; G0378 ×3; J0696; A9585; Q9967

== ENCOUNTER 2018-11-25 07:20 | Emergency (ER) | payer OTHER ==
[2018-11-25 07:29] VITALS: TEMP 98.5
[2018-11-25] MEDS ORDERED: IPRATROPIUM-ALBUTEROL 3 ML NEB INHALATION STA (07:36)
--- NOTE | 2018-11-25 07:38 | ED ---
General Adult HPI - General Chief complaint: Shortness of Breath Stated complaint: cough, congestion Time Seen by Provider: 11/25/18 07:32 Source: patient, RN notes reviewed Mode of arrival: ambulatory Limitations: no limitations - History of Present Illness Initial comments: Patient is a pleasant 52-year-old female presenting to the emergency Department with complaints of cough congestion and difficulty in breathing. Onset of symptoms was over a week ago. Patient does have productive cough with only clear sputum. No chest pain. No leg pain or leg swelling. No fevers. Symptoms are similar to previous COPD. - Related Data Home Medications Medication Instructions Recorded Confirmed ALPRAZolam [Xanax] 0.5 mg PO TID PRN 11/25/18 11/25/18 Albuterol Inhaler [Ventolin Hfa 2 puff INHALATION RT-Q4H PRN 11/25/18 11/25/18 Inhaler] Albuterol Nebulized [Ventolin 2.5 mg INHALATION RT-Q4H PRN 11/25/18 11/25/18 Nebulized] Previous Rx's Medication Instructions Recorded predniSONE 20 mg PO BID #10 tab 11/25/18 Allergies Allergy/AdvReac Type Severity Reaction Status Date / Time No Known Allergies Allergy Verified 11/25/18 08:50 Review of Systems ROS Statement: Those systems with pertinent positive or pertinent negative responses have been documented in the HPI. ROS Other: All systems not noted in ROS Statement are negative. 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 History of Any Multi-Drug Resistant Organisms: None Reported Past Surgical History: Section Additional Past Surgical History / Comment(s): abd surgery- lipoma removed. Past Anesthesia/Blood Transfusion Reactions: No Reported Reaction Past Psychological History: Anxiety, Bipolar, Depression Smoking Status: Current every day smoker Past Alcohol Use History: Rare Past Drug Use History: Marijuana - Past Family History Mother Family Medical History: Myocardial Infarction ([place]) Additional Family Medical History / Comment(s): of HIV/AIDS. General Exam Limitations: no limitations General appearance: alert, in no apparent distress Head exam: Present: atraumatic Eye exam: Present: normal appearance, PERRL ENT exam: Present: normal oropharynx Neck exam: Present: normal inspection Respiratory exam: Present: wheezes, rhonchi Cardiovascular Exam: Present: regular rate, normal rhythm GI/Abdominal exam: Present: soft. Absent: tenderness Extremities exam: Present: normal inspection. Absent: pedal edema, calf tenderness Neurological exam: Present: alert Psychiatric exam: Present: normal affect, normal mood Skin exam: Present: normal color Course Vital Signs 11/25/18 11/25/18 11/25/18 07:27 08:20 08:31 Temperature 98.5 F Pulse Rate 95 92 96 Respiratory 20 Rate Blood Pressure 143/97 O2 Sat by Pulse 94 L Oximetry Medical Decision Making - Medical Decision Making A reevaluated and improved. Lungs with only minimal rhonchi. Patient states she is doing better and comfortable with discharge home. Patient requests work note Disposition Clinical Impression: Acute exacerbation of chronic obstructive airways disease Disposition: HOME SELF-CARE Condition: Stable Instructions (If sedation given, give patient instructions): Acute Bronchitis (ED), COPD (Chronic Obstructive Pulmonary Disease) (ED) Additional Instructions: Please follow-up with primary care physician this week. Return for difficulty breathing, fevers, worsening symptoms or other concerns. Your prescription has been sent to [facility] on Prescriptions: predniSONE 20 mg PO BID #10 tab Is patient prescribed a controlled substance at d/c from ED?: No Referrals: Juanjose Naqvi MD [Primary Care Provider] - 1-2 days Time of Disposition: 09:05
--- NOTE | 2018-11-25 08:20 | XR ---
EXAMINATION TYPE: XR chest 2V DATE OF EXAM: 11/25/2018 COMPARISON: Chest x-ray and CTA chest September 03, 2018. HISTORY: Cough for one year. Congestion and weakness. TECHNIQUE: Frontal and lateral views of the chest are obtained. FINDINGS: There is no new suspicious focal air space opacity, pleural effusion, or pneumothorax seen . The cardiac silhouette size is within normal limits. The osseous structures are intact. IMPRESSION: No new suspicious acute infiltrate.
[2018-11-25 09:24] VITALS: BP 140/88; PULSE 90; RESP 15
== END 2018-11-25 09:18 | disposition home or self-care (01) ==
LOC: EC 07:20
DX: J44.1 Chronic obstructive pulmonary disease with (acute) exacerbation (principal); F17.200 Nicotine dependence, unspecified, uncomplicated; Z79.899 Other long term (current) drug therapy
CPT/HCPCS: 71046; 94640; 99285

== ENCOUNTER → 2019-03-14 | Outpatient (CLI) | payer OTHER ==
[2019-03-14 12:39] LABS: Basophils % (A) 0 %; Eosinophils # (A) 0.3 k/uL (0-0.7); Eosinophils % (A) 3 %; HCT 39.2 % (34.0-46.0); HGB 13.1 gm/dL (11.4-16.0); Lymphocytes # (A) 3.6 k/uL (1.0-4.8); Lymphocytes % (A) 35 %; MCH 29.5 pg (25.0-35.0); MCHC 33.5 g/dL (31.0-37.0); MCV 88.2 fL (80.0-100.0); Mean Platelet Volume 7.8; Monocytes # (A) 0.4 k/uL (0-1.0); Monocytes % (A) 4 %; Neutrophils # (A) 5.8 k/uL (1.3-7.7); Neutrophils % (A) 57 %; Platelet Count 305 k/uL (150-450); RBC 4.45 m/uL (3.80-5.40); RDW 12.6 % (11.5-15.5); WBC 10.1 k/uL (3.8-10.6)
[2019-03-14 18:36] LABS: African American GFR (CKD) 139.8 (60.0-200.0); Albumin/Globulin Ratio 1.6 (1.60-3.17); Anion Gap 6.1 mmol/L (4.00-12.00); C Reactive Protein 0.9 mg/dL (0.0-0.8); Calcium 8.6 mg/dL (8.7-10.3); Carbon Dioxide 25.9 mmol/L (21.6-31.8); Chol/HDL Ratio 3.06; Globulin 2.5 g/dL (1.6-3.3); LDL Cholesterol,Calculated 120.6 mg/dL (0.0-131.0); Magnesium 1.7 mg/dL (1.5-2.4); Non-African American GFR(CKD) 120.6 (60.0-200.0); Phosphorus 3.3 mg/dL (2.4-5.1); Potassium 4.2 mmol/L (3.5-5.5); Total Bilirubin 0.2 mg/dL (0.3-1.2); Total Protein 6.5 g/dL (6.2-8.2); VLDL Calculation 11.4 mg/dL (5.00-40.00)
[2019-03-14 18:46] LABS: T4, Free (Free Thyroxine) 1.1 ng/dL (0.80-1.80)
[2019-03-14 21:14] LABS: Hemoglobin A1C 5.7 % (4.0-6.0)
== END | disposition home or self-care (01) ==
LOC: LABWHC1 11:51
PROVIDERS: ATTEND Internal Medicine
DX: D64.9 Anemia, unspecified (principal); E11.9 Type 2 diabetes mellitus without complications; I10 Essential (primary) hypertension; E78.5 Hyperlipidemia, unspecified; E03.9 Hypothyroidism, unspecified; E55.9 Vitamin D deficiency, unspecified
CPT/HCPCS: 36415; 80053; 80061; 82306; 82550; 83036; 83735; 84100; 84439; 84443; 85025; 86140

== ENCOUNTER → 2019-03-26 | Outpatient (CLI) | payer OTHER ==
[2019-03-26 10:43] VITALS: BP 130/84; PULSE 94; RESP 18; TEMP 98.5
--- NOTE | 2019-03-26 11:51 | P.HPOB ---
History of Present Illness H&P Date: 03/26/19 Chief Complaint: The patient is here for her routine gynecologic exam and ma mmogram. This is a 53-year-old with an LMP of approximately December 2018. The patient states her menstrual periods have been less frequent about every 2-3 months. She denies hot flashes. She has been experiencing some facial hair on and under her chin. She has to use a depilatory (Ambrosio) 1 or 2 times per week. She denies any problems with neuropsychology director skin, deepening of the voice, or low a bdominal hair. She denies taking any androgen type supplements. She is otherwise without complaints. Review of Systems The patient has lost 28 pounds over the last year. She has been trying to eat healthier. She denies respiratory, cardiac, or G.I. problems. 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 History of Any Multi-Drug Resistant Organisms: None Reported Past Surgical History: Section Additional Past Surgical History / Comment(s): 3. Lipomas removed from her back and abdomen. Past Anesthesia/Blood Transfusion Reactions: No Reported Reaction Past Psychological History: Anxiety, Bipolar, Depression Smoking Status: Current every day smoker (5 cigarettes per day) Past Alcohol Use History: Occasional (2 per month) Past Drug Use History: Marijuana (Daily) Additional History: She is single and is not seeing anybody at this time. - Past Family History Mother Family Medical History: Myocardial Infarction ([place]) Additional Family Medical History / Comment(s): of HIV/AIDS. Medications and Allergies Home Medications Medication Instructions Recorded Confirmed Type Albuterol Inhaler [Ventolin Hfa 2 puff INHALATION RT-Q4H PRN 11/25/18 03/26/19 History Inhaler] Albuterol Nebulized [Ventolin 2.5 mg INHALATION RT-Q4H PRN 11/25/18 03/26/19 History Nebulized] predniSONE 20 mg PO BID #10 tab 11/25/18 03/26/19 Rx LORazepam [Ativan] 0.5 mg PO TID 03/26/19 03/26/19 History Allergies Allergy/AdvReac Type Severity Reaction Status Date / Time No Known Allergies Allergy Verified 11/25/18 08:50 Exam Vital Signs Temp Pulse Resp BP Pulse Ox 03/26/19 10:39 98.5 F 94 18 130/84 97 Intake and Output 03/25/19 03/26/19 03/26/19 22:59 06:59 14:59 Other: Weight 103.873 kg Height 5 feet 3 inches, weight 229 pounds, BMI 40.6. This is a well-developed well-nourished heavyset black female who is alert and oriented times 3 in no acute distress. HEENT: There is a small amount of fairly course hair growth under the chin which is very short (stubble). Otherwise within normal limits NECK: Supple without mass or thyromegaly. CHEST AND LUNGS: Clear to auscultation. HEART: Regular rate and rhythm. BREASTS: Are without mass or discharge. AXILLARY EXAM: Negative for adenopathy. BACK: Negative for CVA tenderness. ABDOMEN: Soft, obese, nontender, without palpable masses. PELVIC EXAM: Normal external genitalia with minimal atrophy. Cervix and vagina appear normal with minimal atrophy. There is no unusual discharge. There is no evidence of prolapse. The uterus is midposition, nongravid size and nontender. There are no palpable adnexal masses or tenderness. Bimanual examination is somewhat limited secondary to her size. RECTAL EXAM:Rectovaginal exam is negative for mass or tenderness and is negative for occult blood. EXTREMITIES: Nontender. IMPRESSION: 1. 53-year-old perimenopausal female with normal gynecologic exam. 2. Oligomenorrhea without significant vasomotor symptoms, consistent with perimenopausal changes. 3. Mild hirsutism involving the chin. Differential diagnosis will include physiologic hair growth with decreasing estrogen levels, androgen secreting tumor would be less likely. PLAN: 1. Pap smear was performed. 2. Self breast awareness was discussed with the patient. 3. Screening mammogram will be done today. 4. Blood testing will include total testosterone and DHEAS. 5. Osteoporosis prevention was discussed. I have stressed the importance of adequate calcium, vitamin D and regular exercise. Recommended amounts of calcium and vitamin D were also discussed. 6. I have recommended that she continue to try to quit smoking as she has been cutting back on her own. 7. The patient will keep a menstrual calendar and call if menstrual problems. 8. She was advised to return in one year for her annual well woman exam.
--- NOTE | 2019-03-27 10:51 | MM ---
Reason for exam: screening (asymptomatic). Last mammogram was performed 1 year and 5 months ago. Physical Findings: A clinical breast exam by your physician is recommended on an annual basis and results should be correlated with mammographic findings. MG Screening Mammo w CAD Bilateral CC and MLO view(s) were taken. Prior study comparison: October 23, 2017, bilateral MG screening mammo w CAD. July 14, 2016, right breast MG work up mamm w CAD RT. There are scattered fibroglandular densities. There is no discrete abnormality. ASSESSMENT: Negative, BI-RAD 1 RECOMMENDATION: Routine screening mammogram of both breasts in 1 year.
== END | disposition home or self-care (01) ==
LOC: WWCWWP 10:31
PROVIDERS: ATTEND Obstetrics & Gynecology
DX: Z12.31 Encounter for screening mammogram for malignant neoplasm of breast (principal)
CPT/HCPCS: 77067

== ENCOUNTER 2019-11-19 15:39 | Observation (INO) | payer OTHER ==
[2019-11-19] MEDS ORDERED: ALBUTEROL NEBULIZED 2.5 MG/3 ML INHALATION STA (15:58)
[2019-11-19] MEDS ORDERED: methylPREDNISolone SOD SUCCI 125 MG/2 ML VIAL IV STA (15:58)
[2019-11-19] MEDS ORDERED: SODIUM CHLORIDE 0.9% 1,000 ML IV STA (15:58)
[2019-11-19] MEDS ORDERED: IPRATROPIUM 0.5 MG/2.5 ML NEBU INHALATION STA (15:58)
--- NOTE | 2019-11-19 16:06 | ED ---
SOB HPI - General Chief Complaint: Shortness of Breath Stated Complaint: LIBIA Time Seen by Provider: 11/19/19 15:47 Source: patient, RN notes reviewed, old records reviewed Mode of arrival: wheelchair Limitations: no limitations - History of Present Illness Initial Comments: This is a 53-year-old female here for evaluation history of smoking and COPD sta leidy she's having significant shortness of breath currently. Patient is nursing travel history or sick contacts no recent inpatient admissions. Patient has continued to smoke despite COPD, no chest pain. No fevers. MD Complaint: shortness of breath, cough, "asthma attack", anxiety -: hour(s) Severity: moderate Severity scale (1-10): 7 Consistency: constant Improves With: nothing Worsens With: nothing Known History Of: COPD, asthma Context: smoke/fume exposure (smoking) Associated Symptoms: denies other symptoms Treatments Prior to Arrival: none - Related Data Home Medications Medication Instructions Recorded Confirmed Albuterol Inhaler (Mhu) [Ventolin 2 puff INHALATION RT-Q4H PRN 11/25/18 03/26/19 Hfa Inhaler] Albuterol Nebulized [Ventolin 2.5 mg INHALATION RT-Q4H PRN 11/25/18 03/26/19 Nebulized] LORazepam [Ativan] 0.5 mg PO TID 03/26/19 03/26/19 Previous Rx's Medication Instructions Recorded predniSONE [Deltasone] 20 mg PO BID #10 tab 11/25/18 Allergies Allergy/AdvReac Type Severity Reaction Status Date / Time No Known Allergies Allergy Verified 11/19/19 15:50 Review of Systems ROS Statement: Those systems with pertinent positive or pertinent negative responses have been documented in the HPI. ROS Other: All systems not noted in ROS Statement are negative. 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 History of Any Multi-Drug Resistant Organisms: None Reported Past Surgical History: Section Additional Past Surgical History / Comment(s): 3. Lipomas removed from her back and abdomen. Past Anesthesia/Blood Transfusion Reactions: No Reported Reaction Past Psychological History: Anxiety, Bipolar, Depression Smoking Status: Current every day smoker Past Alcohol Use History: Occasional Past Drug Use History: Marijuana - Past Family History Mother Family Medical History: Myocardial Infarction ([place]) Additional Family Medical History / Comment(s): of HIV/AIDS. General Exam Limitations: no limitations General appearance: alert, in no apparent distress, anxious Head exam: Present: atraumatic, normocephalic, normal inspection Eye exam: Present: normal appearance, PERRL, EOMI. Absent: scleral icterus, conjunctival injection, periorbital swelling ENT exam: Present: normal exam, mucous membranes moist Neck exam: Present: normal inspection. Absent: tenderness, meningismus, lymp hadenopathy Respiratory exam: Present: respiratory distress, wheezes, decreased breath sounds, prolonged expiratory. Absent: rales, rhonchi, stridor Cardiovascular Exam: Present: regular rate, normal rhythm, normal heart sounds. Absent: systolic murmur, diastolic murmur, rubs, gallop, clicks GI/Abdominal exam: Present: soft, normal bowel sounds. Absent: distended, tenderness, guarding, rebound, rigid Extremities exam: Present: normal inspection, full ROM, normal capillary refill. Absent: tenderness, pedal edema, joint swelling, calf tenderness Back exam: Present: normal inspection Neurological exam: Present: alert, oriented X3, CN II-XII intact Psychiatric exam: Present: normal affect, normal mood Skin exam: Present: warm, dry, intact, normal color. Absent: rash Course Vital Signs 11/19/19 11/19/19 11/19/19 15:41 16:22 16:28 Temperature 98.3 F Pulse Rate 91 100 102 H Respiratory 23 Rate Blood Pressure 163/86 O2 Sat by Pulse 97 Oximetry - Reevaluation(s) Reevaluation #1: 11/19/19 17:11 Medical records reviewed Reevaluation #2: 11/19/19 17:11 Significantly improved symptoms here in the ER Reevaluation #3: 11/19/19 17:11 patient informed results questions answered, and is not currently feeling much better on her breathing Medical Decision Making - Medical Decision Making 53 female DF for COPD exacerbation. Patient will be admitted for COPD exacerba tion breathing treatments and steroids - Lab Data Result diagrams: 11/19/19 16:24 11/19/19 16:24 Lab Results 11/19/19 11/19/19 11/19/19 Range/Units 16:24 16:24 16:24 WBC 12.2 H (3.8-10.6) k/uL RBC 4.94 (3.80-5.40) m/uL Hgb 14.2 (11.4-16.0) gm/dL Hct 43.7 (34.0-46.0) % MCV 88.3 (80.0-100.0) fL MCH 28.8 (25.0-35.0) pg MCHC 32.6 (31.0-37.0) g/dL RDW 12.6 (11.5-15.5) % Plt Count 320 (150-450) k/uL Neutrophils % 77 % Lymphocytes % 17 % Monocytes % 2 % Eosinophils % 2 % Basophils % 1 % Neutrophils # 9.4 H (1.3-7.7) k/uL Lymphocytes # 2.1 (1.0-4.8) k/uL Monocytes # 0.3 (0-1.0) k/uL Eosinophils # 0.2 (0-0.7) k/uL Basophils # 0.1 (0-0.2) k/uL PT 10.0 (9.0-12.0) sec INR 1.0 (<1.2) APTT 24.0 (22.0-30.0) sec Sodium 141 (137-145) mmol/L Potassium 5.3 H (3.5-5.1) mmol/L Chloride 109 H (98-107) mmol/L Carbon Dioxide 26 (22-30) mmol/L Anion Gap 6 mmol/L BUN 8 (7-17) mg/dL Creatinine 0.36 L (0.52-1.04) mg/dL Est GFR (CKD-EPI)AfAm >90 (>60 ml/min/1.73 sqM) Est GFR (CKD-EPI)NonAf >90 (>60 ml/min/1.73 sqM) Glucose 110 H (74-99) mg/dL Plasma Lactic Acid Mt (0.7-2.0) mmol/L Calcium 9.1 (8.4-10.2) mg/dL Magnesium 1.7 (1.6-2.3) mg/dL Total Bilirubin 0.9 (0.2-1.3) mg/dL AST 36 (14-36) U/L ALT 21 (4-34) U/L Alkaline Phosphatase 117 (38-126) U/L Creatine Kinase 89 (30-135) U/L Troponin I (0.000-0.034) ng/mL NT-Pro-B Natriuret Pep pg/mL Total Protein 8.2 (6.3-8.2) g/dL Albumin 4.3 (3.5-5.0) g/dL 11/19/19 11/19/19 11/19/19 Range/Units 16:24 16:24 16:24 WBC (3.8-10.6) k/uL RBC (3.80-5.40) m/uL Hgb (11.4-16.0) gm/dL Hct (34.0-46.0) % MCV (80.0-100.0) fL MCH (25.0-35.0) pg MCHC (31.0-37.0) g/dL RDW (11.5-15.5) % Plt Count (150-450) k/uL Neutrophils % % Lymphocytes % % Monocytes % % Eosinophils % % Basophils % % Neutrophils # (1.3-7.7) k/uL Lymphocytes # (1.0-4.8) k/uL Monocytes # (0-1.0) k/uL Eosinophils # (0-0.7) k/uL Basophils # (0-0.2) k/uL PT (9.0-12.0) sec INR (<1.2) APTT (22.0-30.0) sec Sodium (137-145) mmol/L Potassium (3.5-5.1) mmol/L Chloride (98-107) mmol/L Carbon Dioxide (22-30) mmol/L Anion Gap mmol/L BUN (7-17) mg/dL Creatinine (0.52-1.04) mg/dL Est GFR (CKD-EPI)AfAm (>60 ml/min/1.73 sqM) Est GFR (CKD-EPI)NonAf (>60 ml/min/1.73 sqM) Glucose (74-99) mg/dL Plasma Lactic Acid Mt 1.4 (0.7-2.0) mmol/L Calcium (8.4-10.2) mg/dL Magnesium (1.6-2.3) mg/dL Total Bilirubin (0.2-1.3) mg/dL AST (14-36) U/L ALT (4-34) U/L Alkaline Phosphatase (38-126) U/L Creatine Kinase (30-135) U/L Troponin I <0.012 (0.000-0.034) ng/mL NT-Pro-B Natriuret Pep 95 pg/mL Total Protein (6.3-8.2) g/dL Albumin (3.5-5.0) g/dL - EKG Data -: EKG Interpreted by Me (EKG shows sinus rhythm 89 VT 144 QRS 74 QTc 435) - Radiology Data Radiology results: report reviewed (Chest x-rays negative for acute disease), image reviewed Disposition Clinical Impression: Acute exacerbation of chronic obstructive pulmonary disease Disposition: ADMITTED IP TO THIS HOSP Condition: Good Is patient prescribed a controlled substance at d/c from ED?: No Referrals: None,Stated [REFERRING] - 1-2 days
--- NOTE | 2019-11-19 16:18 | XR ---
EXAMINATION TYPE: XR chest 1V portable DATE OF EXAM: 11/19/2019 COMPARISON: Prior chest x-ray 11/25/2018 HISTORY: Shortness of breath TECHNIQUE: Single frontal view of the chest is obtained. FINDINGS: There is no focal air space opacity, pleural effusion, or pneumothorax seen. The cardiac silhouette size is within normal limits. The osseous structures are intact. There are overlying car diac leads. IMPRESSION: No acute process.
[2019-11-19 16:33] LABS: Basophils # (A) 0.1 k/uL (0-0.2); Basophils % (A) 1 %; Eosinophils # (A) 0.2 k/uL (0-0.7); Eosinophils % (A) 2 %; HCT 43.7 % (34.0-46.0); HGB 14.2 gm/dL (11.4-16.0); Lymphocytes # (A) 2.1 k/uL (1.0-4.8); Lymphocytes % (A) 17 %; MCH 28.8 pg (25.0-35.0); MCHC 32.6 g/dL (31.0-37.0); MCV 88.3 fL (80.0-100.0); Mean Platelet Volume 7.7; Monocytes # (A) 0.3 k/uL (0-1.0); Monocytes % (A) 2 %; Neutrophils # (A) 9.4 k/uL (1.3-7.7); Neutrophils % (A) 77 %; Platelet Count 320 k/uL (150-450); RBC 4.94 m/uL (3.80-5.40); RDW 12.6 % (11.5-15.5); WBC 12.2 k/uL (3.8-10.6)
[2019-11-19 16:42] LABS: ALT 21 U/L (4-34); AST 36 U/L (14-36); African American GFR (CKD) >90 (>60 ml/min/1.73 sqM); Albumin 4.3 g/dL (3.5-5.0); Alkaline Phosphatase 117 U/L (38-126); Anion Gap 6 mmol/L; Blood Urea Nitrogen 8 mg/dL (7-17); Calcium 9.1 mg/dL (8.4-10.2); Carbon Dioxide 26 mmol/L (22-30); Chloride 109 mmol/L (98-107); Creatine Kinase 89 U/L (30-135); Glucose 110 mg/dL (74-99); Magnesium 1.7 mg/dL (1.6-2.3); Non-African American GFR(CKD) >90 (>60 ml/min/1.73 sqM); Potassium 5.3 mmol/L (3.5-5.1); Sodium 141 mmol/L (137-145); Total Bilirubin 0.9 mg/dL (0.2-1.3); Total Protein 8.2 g/dL (6.3-8.2)
[2019-11-19] MEDS ORDERED: IPRATROPIUM-ALBUTEROL 3 ML NEB INHALATION PRN (17:07)
[2019-11-19] MEDS ORDERED: MORPHINE SULFATE 4 MG/ML SYRINGE IVP STA (18:24)
[2019-11-19] MEDS: SODIUM CHLORIDE 0.9% 1,000 ML IV SCH (18:49)
--- NOTE | 2019-11-19 19:55 | P.HPIM ---
History of Present Illness H&P Date: 11/19/19 (Tracheobronchitis, leukocytosis, acute exacerbation of COPD.) Chief Complaint: Shortness of breath progressively worsened yesterday and today This is admission history and physical dictation by Dr. chaves date of service 11/19/2019. Chief complaint: I could not breathe History of present illness Patient started to have shortness of breath and wheezing within the last week however she tried to solve it on her own with no improvement, she came to the emergency room today because she could not breeze and the wheezing and coughing. In the ER patient examined by Dr. Flynn, ER physician and found that she had acute exacerbation of COPD and patient admitted to observation. Unit 162 and 1. They found also laboratory indicating white count 12.2 with leukocytosis and normal hemoglobin and normal his eosinophils. Found also that she had hyperkalemia mild with a potassium 5.3 and the normal range 5.1. Her chemistry indicating sodium 141 potassium 5.3, chloride 119, carbon dioxide 26, BUN 8 and creatinine 0.36 and GFR for -[place] female woman more than 90. Lactic acid is normal venous 1.4 calcium 9.1 and normal liver enzyme. Including alkaline phosphatase her troponin was less than 0.012 and the role BNP 95 and total protein 8.2 albumin 4.3. Urine analysis was not done and patient stated that she has stress incontinence but we don't know if she had a urinary tract infection and we will be sending her urine for analysis and the reflex to culture if it is positive. History of present illness. Hypertension. This patient stated that she has started wheezing early this week and progressively worsening and yesterday today could not handle it and subsequently came to the emergency room. Patient is smoking and still continued to smoke in spite of advice and she had history of any desire T disorder as well and COPD and asthma Past medical history: COPD she had degenerative disc disease and which is chronic history of in the past 1998 treated from gonorrhea and chlamydia. She has history of section 3 . Surgical history lipoma removed from the back and the CT section 3 as mention. History of depression bipolar and antianxiety. Habit smoking marijuana and cigarette. Family history: Mother had myocardial infarction. Review of system: #1 neuropsychiatry depression and anxiety and bipolar. #2 cardiovascular hypertension with no chest pain or palpitation. #3 wheezing coughing mild expectoration and shortness of breath. #4 GI symptoms no diarrhea or constipation no abdominal pain #5 she had stress incontinence and questionable UTI #6 obesity and degenerative arthritis. #7 nicotine dependency. #8 the rest of 14 bullet reviewed with the patient with no relevant to her current acute exacerbation of COPD. Investigation: Chest x-ray no acute process. EKG normal sinus rhythm with nonspecific ST abnormality. Laboratories: Hyperkalemia, leukocytosis. Examination: 53 years old -[place] female was admitted through the emergency room on observation unit for exacerbation of COPD and leukocytosis, hyperkalemia with the probability of tracheobronchitis suppurative we'll be obtaining sputum culture and sensitivity. HEENT head was normocephalic and atraumatic pupil was equal reactive and oropharynx was negative, normal hearing no nasal discharge. Neck was supple no JVD no thyromegaly no lymphadenopathy trachea midline. Chest: She had expiratory and inspiratory wheezes and rhonchi bilateral upper and lower lung field. Heart regular sinus rhythm PMI in the fifth intercostal space outside midclavicular line with normal S1 and S2 no gallop. Abdomen soft obese positive bowel sounds no organ enlargement and no tenderness in the four-quadrant. Extremities: No edema positive pulses. Neuropsychiatry she is apprehended with antianxiety probably with depression. No lateralizing sign no history of CVA in the past. Assessment: #1 acute tracheobronchitis #2 nicotine dependency #3 acute exacerbation of COPD with negative chest x-ray so far on the admission. #4 obesity. #5 and anxiety depression bipolar. #6 hypertension with the probable hypertensive heart disease and normal EKG. Plan: Patient admitted to observation unit #2 steroid IV and inhalation #3 diabetes mellitus chemical monitoring with the insulin to scale. #4 starting urine analysis was reflex to culture #5 sputum for culture and sensitivity #6 starting the Rocephin IV piggyback 1 g every 12 hours empirically after sending the urine analysis. For further treatment will be added depend on the patient condition with improvement. 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 History of Any Multi-Drug Resistant Organisms: None Reported Past Surgical History: Section Additional Past Surgical History / Comment(s): 3. Lipomas removed from her back and abdomen. Past Anesthesia/Blood Transfusion Reactions: No Reported Reaction Past Psychological History: Anxiety, Bipolar, Depression Smoking Status: Current every day smoker Past Alcohol Use History: Occasional Past Drug Use History: Marijuana - Past Family History Mother Family Medical History: Myocardial Infarction ([place]) Additional Family Medical History / Comment(s): of HIV/AIDS. Medications and Allergies Home Medications Medication Instructions Recorded Confirmed Type Metoprolol Succinate (ER) [Toprol 25 mg PO DAILY 11/19/19 11/19/19 History Xl] Multivitamins, Thera [Multivitamin 1 tab PO DAILY 11/19/19 11/19/19 History (formulary)] Turmeric Root Extract [Turmeric] 500 mg PO DAILY 11/19/19 11/19/19 History Allergies Allergy/AdvReac Type Severity Reaction Status Date / Time No Known Allergies Allergy Verified 11/19/19 17:39 Physical Exam Vitals: Vital Signs Temp Pulse Pulse Resp BP BP Pulse Ox 11/19/19 19:09 98.6 F 85 18 144/80 100 11/19/19 18:30 80 20 167/95 95 11/19/19 18:00 82 18 93 L 11/19/19 17:30 92 19 92 L 11/19/19 17:00 89 24 91 L 11/19/19 16:30 97 26 H 93 L 11/19/19 16:28 102 H 11/19/19 16:22 100 11/19/19 16:00 95 11/19/19 15:41 98.3 F 91 23 163/86 97 Intake and Output 11/19/19 11/19/19 11/19/19 06:59 14:59 22:59 Other: Weight 107.501 kg Results CBC & Chem 7: 11/19/19 16:24 11/19/19 16:24 Labs: Abnormal Lab Results - Last 24 Hours (Table) 11/19/19 11/19/19 Range/Units 16:24 16:24 WBC 12.2 H (3.8-10.6) k/uL Neutrophils # 9.4 H (1.3-7.7) k/uL Potassium 5.3 H (3.5-5.1) mmol/L Chloride 109 H (98-107) mmol/L Creatinine 0.36 L (0.52-1.04) mg/dL Glucose 110 H (74-99) mg/dL
[2019-11-19] MEDS: BUDESONIDE 0.5 MG/2 ML NEBU INHALATION SCH (20:02)
[2019-11-19] MEDS: ALBUTEROL NEBULIZED 2.5 MG/3 ML INHALATION SCH (20:02)
[2019-11-19 22:50] LABS: Glucose,Whole Blood 163 mg/dL (75-99)
[2019-11-19] MEDS: methylPREDNISolone SOD SUCCI 125 MG/2 ML VIAL IV SCH (23:14)
[2019-11-19] MEDS: INSULIN ASPART (NovoLOG) 100 UNIT/ML VIAL SQ SCH (23:20)
[2019-11-20 00:03] LABS: Appearance,Urine Clear (Clear); Bacteria,Urine Rare /hpf; Bilirubin,Urine Negative (Negative); Blood,Urine Moderate (Negative); Color,Urine Yellow; Glucose,Urine (UA) Negative (Negative); Ketones,Urine Negative (Negative); Leukocyte Esterase,Urine Negative (Negative); Mucus,Urine Rare /hpf; Nitrite,Urine Negative (Negative); Protein,Urine 2+ (Negative); RBC,Urine 24 /hpf (0-5); Squamous Epithelial Cell,Urine 1 /hpf (0-4); Urobilinogen,Urine <2.0 mg/dL (<2.0); WBC,Urine 2 /hpf (0-5)
[2019-11-20 02:42] VITALS: RESP 16
[2019-11-20] MEDS: SODIUM CHLORIDE 0.9% 1,000 ML IV SCH (03:05)
[2019-11-20] MEDS: methylPREDNISolone SOD SUCCI 125 MG/2 ML VIAL IV SCH (05:34)
[2019-11-20 06:26] LABS: Glucose,Whole Blood 136 mg/dL (75-99)
[2019-11-20 06:53] LABS: Basophils % (A) 0 %; Eosinophils # (A) 0.1 k/uL (0-0.7); Eosinophils % (A) 1 %; HCT 42.2 % (34.0-46.0); Lymphocytes # (A) 1.2 k/uL (1.0-4.8); Lymphocytes % (A) 9 %; MCH 29.4 pg (25.0-35.0); MCV 88.9 fL (80.0-100.0); Mean Platelet Volume 8.1; Monocytes # (A) 0.2 k/uL (0-1.0); Monocytes % (A) 2 %; Neutrophils # (A) 11.6 k/uL (1.3-7.7); Neutrophils % (A) 88 %; Platelet Count 331 k/uL (150-450); RBC 4.75 m/uL (3.80-5.40); RDW 12.7 % (11.5-15.5); WBC 13.2 k/uL (3.8-10.6)
[2019-11-20 07:11] LABS: African American GFR (CKD) >90 (>60 ml/min/1.73 sqM); Anion Gap 8 mmol/L; Blood Urea Nitrogen 8 mg/dL (7-17); Calcium 8.9 mg/dL (8.4-10.2); Carbon Dioxide 23 mmol/L (22-30); Chloride 109 mmol/L (98-107); Glucose 133 mg/dL (74-99); Magnesium 1.6 mg/dL (1.6-2.3); Non-African American GFR(CKD) >90 (>60 ml/min/1.73 sqM); Sodium 140 mmol/L (137-145)
[2019-11-20] MEDS: ALBUTEROL NEBULIZED 2.5 MG/3 ML INHALATION SCH ×2 (07:17→10:47)
[2019-11-20] MEDS: BUDESONIDE 0.5 MG/2 ML NEBU INHALATION SCH (07:17)
[2019-11-20 08:01] VITALS: BP 136/84; PULSE 85; TEMP 96.3
[2019-11-20] MEDS: INSULIN ASPART (NovoLOG) 100 UNIT/ML VIAL SQ SCH (08:12)
[2019-11-20] MEDS ORDERED: IBUPROFEN 600 MG TAB PO PRN (08:27)
[2019-11-20] MEDS ORDERED: AMOXIC-POT CLAV 875-125MG 1 EACH TAB PO SCH (09:00)
[2019-11-20] MEDS ORDERED: MULTIVITAMINS, THERA 1 EACH TAB PO SCH (09:00)
[2019-11-20] MEDS ORDERED: METOPROLOL SUCCINATE (ER) 25 MG TAB.ER.24H PO SCH (09:00)
--- NOTE | 2019-11-20 10:58 | P.DS ---
Providers Date of admission: 11/19/19 17:09 Expected date of discharge: 11/20/19 Attending physician: Juanjose Naqvi Primary care physician: Juanjose Naqvi This is dictation on discharge. Admission date 11/19/2019 Discharge date 11/20/2019 Final diagnosis: #1 acute exacerbation of COPD . #2 tracheobronchitis. #3 history of asthma. Number #4 nicotine dependence and currently smoking with resistance to quit smoking. #5 chronic pain syndrome with the underlying degenerative arthritis. ER presentation: Severe shortness of breath with wheezing could not be resolved in the emergency room and admitted on observation status with continuation of the treatment and steroid. Hospital course:: On the observation unit patient received the antibiotic and inhalation therapy with bronchodilator. And steroid. And stated in the observation unit. This morning I received a from her nurse that patient wants to be discharged home with improvement on the lung aeration. And she had appointment with the neurologist and the pain clinic Dr. Espinosa as outpatient in his clinic for for further testing in her chronic pain syndrome and she preferred to go home and is to see Dr. Espinosa as outpatient and she stated that she feel much better and will continue the medication at home. On examination on discharge: Patient is conscious alert oriented 3 advised to call the office and to be seen next week. And had appointment was with Dr. Espinosa the neurologist at 1:00 PM today. The head was normocephalic atraumatic pupil was equal reactive oropharynx was negative neck was supple. Chest was improvement on irradiation of the lung bilaterally however still scattered rhonchi with the chronic history of COPD and chronic smoker and she had inhalation therapy at home nebulizers and we will give her albuterol inhaler as well rescue albuterol HFA 4 times a day and when necessary as well she went to the baseline. Heart regular sinus rhythm and no chest pain no tightness of the chest new line Abdomen is soft positive bowel sound no organ enlargement Extremities no edema positive pulses. Neuro psychiatry stable. Assessment: Stable general condition for discharge today and follow up next week in the office is. Continue the home medication and the nebulizers. Plan plan: #1 we'll discontinue the IV steroid and started her on prednisone 40 mg once a day for 5 days. Also started on Augmentin 875 mg twice a day for 5 days. Albuterol HFA inhalerq 90 g per puff prescription given as well. In regards of her pain is managed by Dr. Espinosa neurologist and pain clinic as outpatient patient will be seeing him today at 1 PM in his office. Patient Condition at Discharge: Good Plan - Discharge Summary Discharge Rx Participant: No New Discharge Prescriptions: New Amoxic-Pot Clav 875-125Mg [Augmentin 875-125] 1 each PO Q12HR 5 Days #10 tab Albuterol Inhaler [Ventolin Hfa Inhaler] 2 puff INHALATION RT-QID #0 puff predniSONE 40 mg PO DAILY 5 Days #5 tab Continue Multivitamins, Thera [Multivitamin (formulary)] 1 tab PO DAILY Metoprolol Succinate (ER) [Toprol XL] 25 mg PO DAILY Turmeric Root Extract [Turmeric] 500 mg PO DAILY Discharge Medication List Metoprolol Succinate (ER) [Toprol XL] 25 mg PO DAILY 11/19/19 [History] Multivitamins, Thera [Multivitamin (formulary)] 1 tab PO DAILY 11/19/19 [History] Turmeric Root Extract [Turmeric] 500 mg PO DAILY 11/19/19 [History] Albuterol Inhaler [Ventolin Hfa Inhaler] 2 puff INHALATION RT-QID #0 puff 11/20/19 [Rx] Amoxic-Pot Clav 875-125Mg [Augmentin 875-125] 1 each PO Q12HR 5 Days #10 tab 11/20/19 [Rx] predniSONE 40 mg PO DAILY 5 Days #5 tab 11/20/19 [Rx] Follow up Appointment(s)/Referral(s): None,Stated [REFERRING] - 3 Days Patient Instructions/Handouts: COPD (Chronic Obstructive Pulmonary Disease) (DC) Discharge Disposition: HOME SELF-CARE
[2019-11-21] MEDS ORDERED: predniSONE 20 MG TAB PO SCH (09:00)
== END 2019-11-20 10:40 | disposition home or self-care (01) ==
LOC: EC 15:39 → 1SOBS 17:09
PROVIDERS: ADMIT Internal Medicine; ATTEND Internal Medicine
DX: J44.1 Chronic obstructive pulmonary disease with (acute) exacerbation (principal); F41.9 Anxiety disorder, unspecified; Z86.19 Personal history of other infectious and parasitic diseases; F31.9 Bipolar disorder, unspecified; E87.5 Hyperkalemia; J40 Bronchitis, not specified as acute or chronic; D72.829 Elevated white blood cell count, unspecified; Z98.890 Other specified postprocedural states; F17.210 Nicotine dependence, cigarettes, uncomplicated; N39.3 Stress incontinence (female) (male); E66.9 Obesity, unspecified; Z68.41 Body mass index [BMI] 40.0-44.9, adult; Z82.49 Family history of ischemic heart disease and other diseases of the circulatory system; G89.4 Chronic pain syndrome; Z83.0 Family history of human immunodeficiency virus [HIV] disease; M19.90 Unspecified osteoarthritis, unspecified site; I11.9 Hypertensive heart disease without heart failure; Z98.891 History of uterine scar from previous surgery; Z79.899 Other long term (current) drug therapy
CPT/HCPCS: 96365; 96376 ×2; 96361; 96375; 99285; 36415; 94640 ×3; 93005; 83880; 80053; 80048; 82550; 83605; 83735 ×2; 84484; 85025 ×2; 85610; 85730; 81001; 87070; 87205; 71045; G0378 ×2; J2270; J2930 ×2; J0696 ×2

== ENCOUNTER → 2020-02-10 | Outpatient (CLI) | payer OTHER ==
--- NOTE | 2020-02-10 15:01 | XR ---
EXAMINATION TYPE: XR knee complete bilateral DATE OF EXAM: 02/10/2020 COMPARISON: Right knee 06/20/2018 HISTORY: 54 year-old female bilateral knee pain TECHNIQUE: 3 views each side FINDINGS: Degenerative spurring within the medial compartments, right greater than left. Additional mild degene rative spurring within the bilateral patellofemoral compartments. Extensor mechanisms appear intact. No sizable knee joint effusion. No acute fracture, subluxation, dislocation seen. IMPRESSION: Degenerative spurring in the medial patellofemoral compartments, greatest in the right medial compart ment. Weightbearing view could better assess the degree of cartilage and joint space narrowing.
== END | disposition home or self-care (01) ==
LOC: RADXRMAIN 09:46
PROVIDERS: ATTEND Internal Medicine
DX: M17.0 Bilateral primary osteoarthritis of knee (principal)

== ENCOUNTER 2020-03-11 16:25 | Emergency (ER) | payer OTHER ==
[2020-03-11 16:32] VITALS: RESP 18; TEMP 98.3
[2020-03-11] MEDS ORDERED: SODIUM CHLORIDE 0.9% 1,000 ML IV ONE (16:53)
--- NOTE | 2020-03-11 16:59 | ED ---
General Adult HPI - General Chief complaint: Nausea/Vomiting/Diarrhea Stated complaint: diarrhea Time Seen by Provider: 03/11/20 16:38 Source: patient, RN notes reviewed, old records reviewed Mode of arrival: ambulatory Limitations: no limitations - History of Present Illness Initial comments: Marty 54-year-old feel presents the ER today for eval for concern for diarrhea for the past week. She denies any respiratory congestion. She does state that her son whom she lives with is positive for Covid. Patient denies any bloody stool. She denies abdominal pain. She denies fevers or chills. - Related Data Home Medications Medication Instructions Recorded Confirmed Metoprolol Succinate (ER) [Toprol 25 mg PO DAILY 11/19/19 11/19/19 XL] Multivitamins, Thera [Multivitamin 1 tab PO DAILY 11/19/19 11/19/19 (formulary)] Turmeric Root Extract [Turmeric] 500 mg PO DAILY 11/19/19 11/19/19 Previous Rx's Medication Instructions Recorded Albuterol Inhaler [Ventolin Hfa 2 puff INHALATION RT-QID #0 puff 11/20/19 Inhaler] Amoxic-Pot Clav 875-125Mg 1 each PO Q12HR 5 Days #10 tab 11/20/19 [Augmentin 875-125] predniSONE 40 mg PO DAILY 5 Days #5 tab 11/20/19 Loperamide [Imodium] 2 mg PO QID #12 cap 03/11/20 Allergies Allergy/AdvReac Type Severity Reaction Status Date / Time No Known Allergies Allergy Verified 03/11/20 16:32 Review of Systems ROS Statement: Those systems with pertinent positive or pertinent negative responses have been documented in the HPI. ROS Other: All systems not noted in ROS Statement are negative. 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 History of Any Multi-Drug Resistant Organisms: None Reported Past Surgical History: Section Additional Past Surgical History / Comment(s): 3. Lipomas removed from her back and abdomen. Past Anesthesia/Blood Transfusion Reactions: No Reported Reaction Past Psychological History: Anxiety, Bipolar, Depression Smoking Status: Current every day smoker Past Alcohol Use History: Occasional Past Drug Use History: Marijuana - Past Family History Mother Family Medical History: Myocardial Infarction ([place]) Additional Family Medical History / Comment(s): of HIV/AIDS. Father History Unknown: Yes Additional Family Medical History / Comment(s): Hx of emphysema. of alcohol abuse General Exam - General Exam Comments Initial Comments: 54-year-old female. Limitations: no limitations General appearance: alert, in no apparent distress Head exam: Present: atraumatic, normocephalic, normal inspection Eye exam: Present: normal appearance, PERRL, EOMI. Absent: scleral icterus, conjunctival injection, periorbital swelling ENT exam: Present: normal exam, mucous membranes moist Neck exam: Present: normal inspection. Absent: tenderness, meningismus, lymphadenopathy Respiratory exam: Present: normal lung sounds bilaterally. Absent: respiratory distress, wheezes, rales, rhonchi, stridor Cardiovascular Exam: Present: regular rate, normal rhythm, normal heart sounds. Absent: systolic murmur, diastolic murmur, rubs, gallop, clicks GI/Abdominal exam: Present: soft, normal bowel sounds. Absent: distended, tenderness, guarding, rebound, rigid Extremities exam: Present: normal inspection, full ROM, normal capillary refill. Absent: tenderness, pedal edema, joint swelling, calf tenderness Back exam: Present: normal inspection Neurological exam: Present: alert, oriented X3, CN II-XII intact Psychiatric exam: Present: normal affect, normal mood Skin exam: Present: warm, dry, intact, normal color. Absent: rash Course Vital Signs 03/11/20 16:30 Temperature 98.3 F Pulse Rate 110 H Respiratory 18 Rate Blood Pressure 113/75 O2 Sat by Pulse 97 Oximetry Medical Decision Making - Medical Decision Making Pleasant 54-year-old female presents for one week of diarrhea. He is concerned for possible covert. At this time Patient has no fevers or chills. Her covert test is negative. Patient's labs reviewed our call she is given IV fluids hydration. On reevaluation she just constantly bed. Inform her of negative code result that she should still some corn T. Patient is history plan will comply. Return parameters were discussed. - Lab Data Result diagrams: 03/11/20 17:13 03/11/20 17:13 Lab Results 12/24/20 12/24/20 12/24/20 Range/Units 17:13 17:13 17:13 WBC 12.1 H (3.8-10.6) k/uL RBC 4.27 (3.80-5.40) m/uL Hgb 12.9 (11.4-16.0) gm/dL Hct 37.2 (34.0-46.0) % MCV 87.1 (80.0-100.0) fL MCH 30.3 (25.0-35.0) pg MCHC 34.7 (31.0-37.0) g/dL RDW 12.5 (11.5-15.5) % Plt Count 287 (150-450) k/uL MPV 7.7 Sodium 140 (137-145) mmol/L Potassium 4.3 (3.5-5.1) mmol/L Chloride 109 H (98-107) mmol/L Carbon Dioxide 26 (22-30) mmol/L Anion Gap 5 mmol/L BUN 16 (7-17) mg/dL Creatinine 0.43 L (0.52-1.04) mg/dL Est GFR (CKD-EPI)AfAm >90 (>60 ml/min/1.73 sqM) Est GFR (CKD-EPI)NonAf >90 (>60 ml/min/1.73 sqM) Glucose 118 H (74-99) mg/dL Calcium 8.8 (8.4-10.2) mg/dL Coronavirus (PCR) Not Detected (Not Detectd) - Radiology Data Radiology results: report reviewed History opacities in the mid lower lungs are likely related to overlying soft tissue density. No focal opacity. Disposition Clinical Impression: Diarrhea Disposition: HOME SELF-CARE Condition: Good Instructions (If sedation given, give patient instructions): Acute Diarrhea (ED ) Additional Instructions: Patient's is to self quarantine the next 10 days and avoid contact with others as you could still have covid at this time. Take Imodium to help with diarrhea. Rest, remain hydrated. If you have any concerns for difficulty breathing he can return to the ER for reevaluation. Prescriptions: Loperamide [Imodium] 2 mg PO QID #12 cap Is patient prescribed a controlled substance at d/c from ED?: No Referrals: Juanjose Naqvi MD [Primary Care Provider] - 1-2 days Time of Disposition: 18:19
[2020-03-11] MEDS ORDERED: SODIUM CHLORIDE 0.9% 1,000 ML IV SCH (17:00)
[2020-03-11 17:19] LABS: HCT 37.2 % (34.0-46.0); HGB 12.9 gm/dL (11.4-16.0); MCH 30.3 pg (25.0-35.0); MCHC 34.7 g/dL (31.0-37.0); MCV 87.1 fL (80.0-100.0); Mean Platelet Volume 7.7; Platelet Count 287 k/uL (150-450); RBC 4.27 m/uL (3.80-5.40); RDW 12.5 % (11.5-15.5); WBC 12.1 k/uL (3.8-10.6)
[2020-03-11 17:28] LABS: African American GFR (CKD) >90 (>60 ml/min/1.73 sqM); Anion Gap 5 mmol/L; Blood Urea Nitrogen 16 mg/dL (7-17); Calcium 8.8 mg/dL (8.4-10.2); Carbon Dioxide 26 mmol/L (22-30); Chloride 109 mmol/L (98-107); Glucose 118 mg/dL (74-99); Non-African American GFR(CKD) >90 (>60 ml/min/1.73 sqM); Sodium 140 mmol/L (137-145)
--- NOTE | 2020-03-11 17:42 | XR ---
EXAM: XR Chest, 1 View CLINICAL HISTORY: ITS.REASON XR Reason: cough TECHNIQUE: Frontal view of the chest. COMPARISON: None FINDINGS: Hardware: None. Lungs/pleura: Hazy opacities in the mid and lower lungs are likely related to overlying soft tissue density. No focal consolidation. No pleural effusion or pneumothorax. Heart/mediastinum: Normal. No cardiomegaly. Soft tissues: Unremarkable. Bones: No acute fracture. Upper abdomen: Normal. IMPRESSION: Hazy opacities in the mid and lower lungs are likely related to overlying soft tissue density. No focal consolidation.
[2020-03-11 18:03] LABS: Potassium 4.3 mmol/L (3.5-5.1)
[2020-03-11 18:35] VITALS: BP 119/79; PULSE 95
== END 2020-03-11 18:34 | disposition home or self-care (01) ==
LOC: EC 16:25
DX: R19.7 Diarrhea, unspecified (principal); F17.200 Nicotine dependence, unspecified, uncomplicated; Z20.828 Contact with and (suspected) exposure to other viral communicable diseases; Z79.899 Other long term (current) drug therapy
CPT/HCPCS: 36415; 71045; 80048; 85027; 87635; 96360; 99284

== ENCOUNTER 2020-07-16 11:43 | Emergency (ER) | payer OTHER ==
--- NOTE | 2020-07-16 12:35 | ED ---
General Adult HPI - General Chief complaint: Shortness of Breath Stated complaint: Covid+, SOB, weakness Time Seen by Provider: 07/16/20 12:19 Source: patient, RN notes reviewed Mode of arrival: ambulatory Limitations: no limitations - History of Present Illness Initial comments: Patient is a 54-year-old female presents to emergency department with Covid symptoms. She notes she tested +2 days ago but had symptoms approximately 4-5 days ago. She notes that she's had a nagging dry cough nonproductive. She denied any other symptoms. She was well-appearing while sitting up in bed during the exam interview. She denied chest pain short of breath headache nausea vomiting diarrhea constipation fever fatigue chills. - Related Data Home Medications Medication Instructions Recorded Confirmed Metoprolol Succinate (ER) [Toprol 25 mg PO DAILY 11/19/19 11/19/19 XL] Multivitamins, Thera [Multivitamin 1 tab PO DAILY 11/19/19 11/19/19 (formulary)] Turmeric Root Extract [Turmeric] 500 mg PO DAILY 11/19/19 11/19/19 Previous Rx's Medication Instructions Recorded Albuterol Inhaler [Ventolin Hfa 2 puff INHALATION RT-QID #0 puff 11/20/19 Inhaler] Amoxic-Pot Clav 875-125Mg 1 each PO Q12HR 5 Days #10 tab 11/20/19 [Augmentin 875-125] predniSONE 40 mg PO DAILY 5 Days #5 tab 11/20/19 Loperamide [Imodium] 2 mg PO QID #12 cap 03/11/20 Allergies Allergy/AdvReac Type Severity Reaction Status Date / Time No Known Allergies Allergy Verified 07/16/20 11:57 Review of Systems ROS Statement: Those systems with pertinent positive or pertinent negative responses have been documented in the HPI. ROS Other: All systems not noted in ROS Statement are negative. 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 History of Any Multi-Drug Resistant Organisms: None Reported Past Surgical History: Section Additional Past Surgical History / Comment(s): 3. Lipomas removed from her back and abdomen. Past Anesthesia/Blood Transfusion Reactions: No Reported Reaction Past Psychological History: Anxiety, Bipolar, Depression Smoking Status: Current every day smoker Past Alcohol Use History: Occasional Past Drug Use History: Marijuana - Past Family History Mother Family Medical History: Myocardial Infarction ([place]) Additional Family Medical History / Comment(s): of HIV/AIDS. Father History Unknown: Yes Additional Family Medical History / Comment(s): Hx of emphysema. of alcohol abuse General Exam Limitations: no limitations General appearance: alert, in no apparent distress Head exam: Present: atraumatic, normocephalic, normal inspection Eye exam: Present: normal appearance, PERRL, EOMI. Absent: scleral icterus, conjunctival injection, periorbital swelling Neck exam: Present: normal inspection. Absent: tenderness, meningismus, lymphadenopathy Respiratory exam: Present: normal lung sounds bilaterally. Absent: respiratory distress, wheezes, rales, rhonchi, stridor Cardiovascular Exam: Present: regular rate, normal rhythm, normal heart sounds. Absent: systolic murmur, diastolic murmur, rubs, gallop, clicks GI/Abdominal exam: Present: soft, normal bowel sounds. Absent: distended, tenderness, guarding, rebound, rigid Extremities exam: Present: normal inspection, full ROM, normal capillary refill. Absent: tenderness, pedal edema, joint swelling, calf tenderness Neurological exam: Present: alert, oriented X3, CN II-XII intact Psychiatric exam: Present: normal affect, normal mood Skin exam: Present: warm, dry, intact, normal color. Absent: rash Course Vital Signs 07/16/20 07/16/20 11:55 12:53 Temperature 99.0 F Pulse Rate 97 Respiratory 18 22 Rate Blood Pressure 113/71 O2 Sat by Pulse 95 Oximetry Medical Decision Making - Medical Decision Making 54-year-old female with Covid. 4 Plex swab, chest x-ray ordered. Patient doesn't criteria for monoclonal antibody therapy and wishes to undergo IV infusion. Covid positive. Case discussed with Dr. Villatoro, patient discharge home after IV infusion monoclonal antibodies. - Lab Data Lab Results 07/16/20 Range/Units 12:53 Influenza Type A (PCR) Not Detected (Not Detectd) Influenza Type B (PCR) Not Detected (Not Detectd) RSV (PCR) Not Detected (Not Detectd) SARS-CoV-2 (PCR) Detected A (Not Detectd) - Radiology Data Radiology results: report reviewed, image reviewed Chest x-ray: Groundglass density left lower lobe may reflect developing infiltrate. Disposition Clinical Impression: COVID-19 Disposition: HOME SELF-CARE Condition: Stable Instructions (If sedation given, give patient instructions): Coronavirus Disease 2019 (COVID-19) Additional Instructions: Please return to the Emergency Department if symptoms worsen or any other concerns. Follow-up with primary care this is possible. Is patient prescribed a controlled substance at d/c from ED?: No Referrals: Juanjose Naqvi MD [Primary Care Provider] - 1-2 days Time of Disposition: 14:21
[2020-07-16 12:55] VITALS: RESP 22
--- NOTE | 2020-07-16 13:29 | XR ---
EXAMINATION TYPE: XR chest 2V DATE OF EXAM: 07/16/2020 COMPARISON: 03/11/2020 HISTORY: Shortness of breath TECHNIQUE: Frontal and lateral views of the chest are obtained. FINDINGS: Scattered senescent parenchymal changes noted. Hyperinflation compatible with COPD. Groundglass density left lower lobe may reflect developing infiltrate. Correlate clinically. Heart size is stable. Mediastinal structures are stable and grossly unremarkable. No evidence for hilar prominence. Degenerative changes dorsal spine. IMPRESSION: 1. Groundglass density left lower lobe may reflect developing infiltrate. Correlate clinically.
[2020-07-16 14:41] VITALS: BP 117/81; PULSE 84; TEMP 100.1
[2020-07-16] MEDS ORDERED: BAMLANIVIMAB (EUA) 700 MG, ETESEVIMAB (EUA) 1,400 MG in SODIUM CHLORIDE 0.9% 50 ML IVPB ONE (14:45)
== END 2020-07-16 16:00 | disposition home or self-care (01) ==
LOC: EC 11:43
DX: U07.1 COVID-19 (principal); J44.9 Chronic obstructive pulmonary disease, unspecified; F17.200 Nicotine dependence, unspecified, uncomplicated
CPT/HCPCS: 87636; 71046; 99284; Q0245

== ENCOUNTER 2020-08-01 20:23 | Emergency (ER) | payer OTHER ==
[2020-08-01 21:45] LABS: Basophils # (A) 0.1 k/uL (0-0.2); Basophils % (A) 1 %; Eosinophils # (A) 0.4 k/uL (0-0.7); Eosinophils % (A) 3 %; HCT 40.9 % (34.0-46.0); HGB 14.2 gm/dL (11.4-16.0); Lymphocytes # (A) 4.1 k/uL (1.0-4.8); Lymphocytes % (A) 30 %; MCH 30.2 pg (25.0-35.0); MCHC 34.8 g/dL (31.0-37.0); MCV 86.6 fL (80.0-100.0); Mean Platelet Volume 7.4; Monocytes # (A) 0.4 k/uL (0-1.0); Monocytes % (A) 3 %; Neutrophils # (A) 8.7 k/uL (1.3-7.7); Neutrophils % (A) 63 %; Platelet Count 311 k/uL (150-450); RBC 4.72 m/uL (3.80-5.40); RDW 12.9 % (11.5-15.5); WBC 13.9 k/uL (3.8-10.6)
[2020-08-01 21:59] LABS: ALT 27 U/L (4-34); African American GFR (CKD) >90 (>60 ml/min/1.73 sqM); Anion Gap 7 mmol/L; Blood Urea Nitrogen 15 mg/dL (7-17); Calcium 8.9 mg/dL (8.4-10.2); Carbon Dioxide 28 mmol/L (22-30); Chloride 106 mmol/L (98-107); Glucose 122 mg/dL (74-99); Non-African American GFR(CKD) >90 (>60 ml/min/1.73 sqM); Sodium 141 mmol/L (137-145); Total Bilirubin 0.4 mg/dL (0.2-1.3); Total Protein 7.8 g/dL (6.3-8.2)
[2020-08-01 22:02] LABS: INR 0.9 (<1.2); Partial Thromboplastin Time 22.8 sec (22.0-30.0); Prothrombin Time 9.7 sec (9.0-12.0)
--- NOTE | 2020-08-01 22:02 | XR ---
EXAMINATION TYPE: XR chest 2V DATE OF EXAM: 08/01/2020 COMPARISON: 07/16/2020 HISTORY: Difficulty breathing TECHNIQUE: 2 views FINDINGS: Heart and mediastinum are normal. Lungs are clear. Diaphragm is normal. Bony thorax appe ars normal. IMPRESSION: Normal chest. There is clearing of the mild pulmonary interstitial density compared to ol d exam.
[2020-08-01 22:05] LABS: AST 37 U/L (14-36); Alkaline Phosphatase 108 U/L (38-126)
[2020-08-01 22:09] LABS: D-Dimer 0.81 mg/L FEU (<0.60)
[2020-08-01] MEDS ORDERED: IPRATROPIUM-ALBUTEROL 3 ML NEB INHALATION STA (22:14)
[2020-08-01] MEDS ORDERED: oxyCODONE-APAP 5-325MG 1 EACH TAB PO STA (23:09)
--- NOTE | 2020-08-01 23:24 | CT ---
EXAMINATION TYPE: CT chest angio for PE DATE OF EXAM: 08/01/2020 COMPARISON: 09/03/2018 HISTORY: SOB CT DLP: 856.9 mGycm Automated exposure control for dose reduction was used. CONTRAST: Performed with IV Contrast, patient injected with 75 mL of Isovue 370. There are a few paratracheal lymph nodes up to 15 x 10 mm. There are no hilar masses. There are a few bronchial lymph nodes up to 1 cm. Thoracic aorta is intact. There is no aneurysm or dissection. Ther e is normal contrast opacification of the pulmonary arteries. There are no filling defects. There is 2.8 cm ascending aorta. Heart size is normal. There is no pericardial effusion. The lungs are clear of infiltrate. There is no evidence of a pulmonary mass. There is no pleural effu timothy. There is no evidence of a pulmonary mass. The upper abdominal soft tissues appear intact. There is minimal subsegmental atelectasis at the right lung base. The bony thorax appears intact. IMPRESSION: No evidence of pulmonary embolism. There are a few mediastinal lymph nodes which are increased in siz e compared to old exam and of uncertain significance.
--- NOTE | 2020-08-01 23:27 | ED ---
URI HPI - General Chief Complaint: Upper Respiratory Infection Stated Complaint: COVID+,Wants chest xr Time Seen by Provider: 08/01/20 20:57 Source: patient Mode of arrival: ambulatory Limitations: no limitations - History of Present Illness Initial Comments: 54-year-old fever presenting to the ER today for chief complaint of shortness of breath. Patient states she has had shortest of breath since diagnosis: 3 weeks ago. She states has been slightly worse for the past 2 days. Patient states she is a smoker and has COPD. She denies coughing up blood leg swelling she denies any chest pain nausea vomiting jaw pain or arm pain. Patient states she has her chronic back and knee pain she denies any changes. Patient denies any fevers. Patient denies additional complaints upon arrival she appears well nontoxic in no acute distress - Related Data Home Medications Medication Instructions Recorded Confirmed Metoprolol Succinate (ER) [Toprol 25 mg PO DAILY 11/19/19 11/19/19 XL] Multivitamins, Thera [Multivitamin 1 tab PO DAILY 11/19/19 11/19/19 (formulary)] Turmeric Root Extract [Turmeric] 500 mg PO DAILY 11/19/19 11/19/19 Previous Rx's Medication Instructions Recorded Albuterol Inhaler [Ventolin Hfa 2 puff INHALATION RT-QID #0 puff 11/20/19 Inhaler] Amoxic-Pot Clav 875-125Mg 1 each PO Q12HR 5 Days #10 tab 11/20/19 [Augmentin 875-125] predniSONE 40 mg PO DAILY 5 Days #5 tab 11/20/19 Loperamide [Imodium] 2 mg PO QID #12 cap 03/11/20 Allergies Allergy/AdvReac Type Severity Reaction Status Date / Time No Known Allergies Allergy Verified 08/01/20 20:44 Review of Systems ROS Statement: Those systems with pertinent positive or pertinent negative responses have been documented in the HPI. ROS Other: All systems not noted in ROS Statement are negative. 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 History of Any Multi-Drug Resistant Organisms: None Reported Past Surgical History: Section Additional Past Surgical History / Comment(s): 3. Lipomas removed from her back and abdomen. Past Anesthesia/Blood Transfusion Reactions: No Reported Reaction Past Psychological History: Anxiety, Bipolar, Depression Smoking Status: Current every day smoker Past Alcohol Use History: Occasional Past Drug Use History: Marijuana - Past Family History Mother Family Medical History: Myocardial Infarction ([place]) Additional Family Medical History / Comment(s): of HIV/AIDS. Father History Unknown: Yes Additional Family Medical History / Comment(s): Hx of emphysema. of alcohol abuse General Exam - General Exam Comments Initial Comments: General: The patient is awake and alert, in no distress, and does not appear acutely ill. Eye: Pupils are equal, round and reactive to light, extra-ocular movements are intact. No nystagmus. There is normal conjunctiva bilaterally. No signs of icterus. Ears, nose, mouth and throat: There are moist mucous membranes and no oral lesions. Neck: The neck is supple, there is no tenderness or JVD. Cardiovascular: There is a regular rate and rhythm. No murmur, rub or gallop is appreciated. Respiratory: Lungs are clear to auscultation, respirations are non-labored, breath sounds are equal. No wheezes, stridor, rales, or rhonchi. Musculoskeletal: Normal ROM, no tenderness. Strength 5/5. Sensation intact. Pulses equal bilaterally 2+. Neurological: A&O x 3. CN II-XII intact, There are no obvious motor or sensory deficits. Coordination appears grossly intact. Speech is normal. Skin: Skin is warm and dry and no rashes or lesions are noted. Psychiatric: Cooperative, appropriate mood & affect, normal judgment. Limitations: no limitations Course Vital Signs 08/01/20 08/01/20 08/01/20 20:44 21:43 22:23 Temperature 98.4 F Pulse Rate 106 H 96 88 Respiratory 20 16 Rate Blood Pressure 102/67 116/83 O2 Sat by Pulse 95 95 Oximetry 08/01/20 08/01/20 08/01/20 22:34 22:37 22:39 Temperature Pulse Rate 88 86 Respiratory 18 18 Rate Blood Pressure 111/70 O2 Sat by Pulse 100 Oximetry 08/01/20 23:41 Temperature 98.6 F Pulse Rate 98 Respiratory 20 Rate Blood Pressure 112/79 O2 Sat by Pulse 98 Oximetry Medical Decision Making - Medical Decision Making Mild leukocytosis. Chest x-ray clear. Negative for pulmonary embolism on CTA. Troponin negative EKG no acute findings. Patient states she is still better after DuoNeb at this time feel patient is stable for discharge with outpatient PCP f/u. Return for worsening symptoms. - Lab Data Result diagrams: 08/01/20 21:39 08/01/20 21:39 Lab Results 08/01/20 08/01/20 08/01/20 Range/Units 21:39 21:39 21:39 WBC 13.9 H (3.8-10.6) k/uL RBC 4.72 (3.80-5.40) m/uL Hgb 14.2 (11.4-16.0) gm/dL Hct 40.9 (34.0-46.0) % MCV 86.6 (80.0-100.0) fL MCH 30.2 (25.0-35.0) pg MCHC 34.8 (31.0-37.0) g/dL RDW 12.9 (11.5-15.5) % Plt Count 311 (150-450) k/uL MPV 7.4 Neutrophils % 63 % Lymphocytes % 30 % Monocytes % 3 % Eosinophils % 3 % Basophils % 1 % Neutrophils # 8.7 H (1.3-7.7) k/uL Lymphocytes # 4.1 (1.0-4.8) k/uL Monocytes # 0.4 (0-1.0) k/uL Eosinophils # 0.4 (0-0.7) k/uL Basophils # 0.1 (0-0.2) k/uL PT 9.7 (9.0-12.0) sec INR 0.9 (<1.2) APTT 22.8 (22.0-30.0) sec D-Dimer 0.81 H (<0.60) mg/L FEU Sodium 141 (137-145) mmol/L Potassium 4.0 (3.5-5.1) mmol/L Chloride 106 (98-107) mmol/L Carbon Dioxide 28 (22-30) mmol/L Anion Gap 7 mmol/L BUN 15 (7-17) mg/dL Creatinine 0.44 L (0.52-1.04) mg/dL Est GFR (CKD-EPI)AfAm >90 (>60 ml/min/1.73 sqM) Est GFR (CKD-EPI)NonAf >90 (>60 ml/min/1.73 sqM) Glucose 122 H (74-99) mg/dL Plasma Lactic Acid Mt (0.7-2.0) mmol/L Calcium 8.9 (8.4-10.2) mg/dL Total Bilirubin 0.4 (0.2-1.3) mg/dL AST 37 H (14-36) U/L ALT 27 (4-34) U/L Alkaline Phosphatase 108 (38-126) U/L Troponin I (0.000-0.034) ng/mL NT-Pro-B Natriuret Pep pg/mL Total Protein 7.8 (6.3-8.2) g/dL Albumin 4.0 (3.5-5.0) g/dL 08/01/20 08/01/20 08/01/20 Range/Units 21:39 21:39 21:39 WBC (3.8-10.6) k/uL RBC (3.80-5.40) m/uL Hgb (11.4-16.0) gm/dL Hct (34.0-46.0) % MCV (80.0-100.0) fL MCH (25.0-35.0) pg MCHC (31.0-37.0) g/dL RDW (11.5-15.5) % Plt Count (150-450) k/uL MPV Neutrophils % % Lymphocytes % % Monocytes % % Eosinophils % % Basophils % % Neutrophils # (1.3-7.7) k/uL Lymphocytes # (1.0-4.8) k/uL Monocytes # (0-1.0) k/uL Eosinophils # (0-0.7) k/uL Basophils # (0-0.2) k/uL PT (9.0-12.0) sec INR (<1.2) APTT (22.0-30.0) sec D-Dimer (<0.60) mg/L FEU Sodium (137-145) mmol/L Potassium (3.5-5.1) mmol/L Chloride (98-107) mmol/L Carbon Dioxide (22-30) mmol/L Anion Gap mmol/L BUN (7-17) mg/dL Creatinine (0.52-1.04) mg/dL Est GFR (CKD-EPI)AfAm (>60 ml/min/1.73 sqM) Est GFR (CKD-EPI)NonAf (>60 ml/min/1.73 sqM) Glucose (74-99) mg/dL Plasma Lactic Acid Mt 1.8 (0.7-2.0) mmol/L Calcium (8.4-10.2) mg/dL Total Bilirubin (0.2-1.3) mg/dL AST (14-36) U/L ALT (4-34) U/L Alkaline Phosphatase (38-126) U/L Troponin I <0.012 (0.000-0.034) ng/mL NT-Pro-B Natriuret Pep 52 pg/mL Total Protein (6.3-8.2) g/dL Albumin (3.5-5.0) g/dL Disposition Clinical Impression: Dyspnea, Cough Disposition: HOME SELF-CARE Condition: Good Instructions (If sedation given, give patient instructions): Coronavirus Disease 2019 (COVID-19) Additional Instructions: Please use medication as discussed. Please follow-up with family doctor in the next 2 days. Please return to emergency room if the symptoms increase or worsen or for any other concerns. Is patient prescribed a controlled substance at d/c from ED?: No Referrals: Juanjose Naqvi MD [Primary Care Provider] - 1-2 days Time of Disposition: 23:27
[2020-08-01 23:42] VITALS: BP 112/79; PULSE 98; RESP 20; TEMP 98.6
== END 2020-08-01 23:40 | disposition home or self-care (01) ==
LOC: EC 20:23
DX: R06.02 Shortness of breath (principal); R05 Cough; D72.829 Elevated white blood cell count, unspecified; J44.9 Chronic obstructive pulmonary disease, unspecified; F17.200 Nicotine dependence, unspecified, uncomplicated; Z79.52 Long term (current) use of systemic steroids; Z79.899 Other long term (current) drug therapy; Z82.49 Family history of ischemic heart disease and other diseases of the circulatory system
CPT/HCPCS: 36415; 94640; 93005; 85379; 83880; 80053; 83605; 84484; 85025; 85610; 85730; 71046; 71275; 99285; Q9967

== ENCOUNTER → 2020-09-21 | Outpatient (CLI) | payer OTHER ==
--- NOTE | 2020-09-21 12:52 | XR ---
EXAMINATION TYPE: XR chest 2V DATE OF EXAM: 09/21/2020 COMPARISON: 08/01/2020 HISTORY: Post Covid, shortness of breath TECHNIQUE: Frontal and lateral views of the chest are obtained. FINDINGS: Heart size is within normal limits. Low lung volumes. No pleural effusion or pneumothorax. There is diffuse bilateral interstitial airspace opacities prominence most prominent the lung bases. Continued follow-up to resolution is recommended. IMPRESSION: 1. Pulmonary interstitial airspace opacities predominantly at the lung bases may represent infectious /inflammatory process. Follow-up to resolution is recommended.
[2020-09-21 19:03] LABS: African American GFR (CKD) 115.5 (60.0-200.0); Non-African American GFR(CKD) 99.6 (60.0-200.0)
[2020-09-21 21:33] LABS: Hemoglobin A1C 5.1 % (4.0-6.0)
== END | disposition home or self-care (01) ==
LOC: LABWHC1 11:57
PROVIDERS: ATTEND Internal Medicine
DX: R06.02 Shortness of breath (principal); Z86.16 Personal history of COVID-19
CPT/HCPCS: 36415; 71046; 82565; 83036; 84450; 84460; 84520

== ENCOUNTER → 2021-01-18 | Outpatient (CLI) | payer OTHER ==
[2021-01-18 15:49] LABS: Appearance,Urine Cloudy (Clear); Bacteria,Urine Few /hpf; Bilirubin,Urine Negative (Negative); Blood,Urine Small (Negative); Color,Urine Yellow; Glucose,Urine (UA) Negative (Negative); Ketones,Urine Negative (Negative); Leukocyte Esterase,Urine Small (Negative); Mucus,Urine Rare /hpf; Nitrite,Urine Negative (Negative); Protein,Urine 1+ (Negative); RBC,Urine 9 /hpf (0-5); Specific Gravity,Urine 1.011 (1.001-1.035); Squamous Epithelial Cell,Urine 5 /hpf (0-4); Urobilinogen,Urine <2.0 mg/dL (<2.0); WBC,Urine 5 /hpf (0-5)
[2021-01-18 20:22] LABS: ALT 20 U/L (8-44); AST 15 U/L (13-35); African American GFR (CKD) 120.6 (60.0-200.0); Albumin 4.3 g/dL (3.8-4.9); Albumin/Globulin Ratio 1.39 (1.60-3.17); Alkaline Phosphatase 122 U/L (41-126); BUN/Creat Ratio 18.17 Ratio (12.00-20.00); Blood Urea Nitrogen 10.9 mg/dL (9.0-27.0); Calcium 9.4 mg/dL (8.7-10.3); Carbon Dioxide 22.9 mmol/L (21.6-31.8); Chloride 103 mmol/L (96-109); Chol/HDL Ratio 3.94 Ratio; Creatine Kinase 92 U/L (26-186); Globulin 3.1 g/dL (1.6-3.3); Glucose 97 mg/dL (70-110); LDL Cholesterol,Calculated 149.6 mg/dL (0.0-131.0); Non-African American GFR(CKD) 104.1 (60.0-200.0); Potassium 4.1 mmol/L (3.5-5.5); Sodium 140 mmol/L (135-145); Total Bilirubin <0.20 mg/dL (0.30-1.20); Total Protein 7.4 g/dL (6.2-8.2)
[2021-01-18 20:24] LABS: Basophils # (A) 0.04 X 10*3/uL (0.00-0.10); Basophils % (A) 0.3 %; Eosinophils % (A) 1.7 %; HCT 39.9 % (37.2-46.3); HGB 13.7 g/dL (12.0-15.0); Lymphocytes # (A) 4.48 X 10*3/uL (0.90-5.00); MCH 30.5 pg (27.0-32.0); MCHC 34.3 g/dL (32.0-37.0); MCV 88.9 fL (80.0-97.0); Mean Platelet Volume 10.8 fL (9.5-12.2); Monocytes # (A) 0.68 X 10*3/uL (0.20-1.00); Monocytes % (A) 5.8 %; Neutrophils # (A) 6.35 X 10*3/uL (1.80-7.70); Neutrophils % (A) 53.9 %; Platelet Count 326 X 10*3/uL (140-440); RBC 4.49 X 10*6/uL (4.10-5.20); RDW 12.9 % (11.5-14.5); WBC 11.79 X 10*3/uL (4.50-10.00)
[2021-01-18 21:56] LABS: Erythrocyte Sedimentation Rate 37 mm/Hr (0-30)
== END | disposition home or self-care (01) ==
LOC: LABWHC1 15:04
PROVIDERS: ATTEND Internal Medicine
DX: Z00.00 Encounter for general adult medical examination without abnormal findings (principal); D64.9 Anemia, unspecified; J44.9 Chronic obstructive pulmonary disease, unspecified; I10 Essential (primary) hypertension; R31.9 Hematuria, unspecified; E78.5 Hyperlipidemia, unspecified; E66.9 Obesity, unspecified; E55.9 Vitamin D deficiency, unspecified
CPT/HCPCS: 36415; 80053; 80061; 81001; 82306; 82550; 84443; 85025; 85652; 86140

== ENCOUNTER 2021-06-23 13:12 | Inpatient (IN) | payer OTHER ==
[2021-06-23] MEDS ORDERED: methylPREDNISolone SOD SUCCI 125 MG/2 ML VIAL IV STA (15:24)
[2021-06-23] MEDS ORDERED: IPRATROPIUM 0.5 MG/2.5 ML NEBU INHALATION STA (15:24)
[2021-06-23] MEDS ORDERED: ALBUTEROL NEBULIZED 2.5 MG/3 ML INHALATION STA (15:24)
--- NOTE | 2021-06-23 15:31 | ED ---
General Adult HPI - General Chief complaint: Shortness of Breath Stated complaint: LIBIA,Chest pain Time Seen by Provider: 06/23/21 14:55 Source: patient, RN notes reviewed, old records reviewed Mode of arrival: ambulatory Limitations: no limitations - History of Present Illness Initial comments: This is a 55-year-old female presents emergency Department complaining that over the last couple of days and shortness of breath and increased cough and some c hest pain. Patient states the chest pain comes and lasts about 10 minutes and then subsides. Patient states she's been taking her breathing treatments at home but has not helped. Patient states she's also coughing up quite a bit of sputum. Patient states the chest pain is not reproducible. Patient denies any lightheadedness or dizziness. Patient denies abdominal pain patient denies nausea vomiting diarrhea. Patient denies any swelling to the legs or calf tenderness. - Related Data Home Medications Medication Instructions Recorded Confirmed Metoprolol Succinate (ER) [Toprol 25 mg PO BID 11/19/19 06/23/21 XL] Albuterol Sulfate [Proair Hfa] 2 puff INHALATION RT-QID PRN 06/23/21 06/23/21 Atorvastatin [Lipitor] 20 mg PO HS 06/23/21 06/23/21 Fluticasone Propionate [Flovent 1 puff INHALATION RT-BID 06/23/21 06/23/21 Hfa 110 mcg] Ipratropium-Albuterol Nebulize 3 ml INHALATION RT-QID PRN 06/23/21 06/23/21 [Duoneb 0.5 mg-3 mg/3 ml Soln] Naloxone HCl [Narcan] 4 mg NASAL DIRECTED 06/23/21 06/23/21 oxyCODONE HCL/ACETAMINOPHEN 1 tab PO BID PRN 06/23/21 06/23/21 [Percocet 7.5-325 mg] Allergies Allergy/AdvReac Type Severity Reaction Status Date / Time No Known Allergies Allergy Verified 06/23/21 13:19 Review of Systems ROS Statement: Those systems with pertinent positive or pertinent negative responses have been documented in the HPI. ROS Other: All systems not noted in ROS Statement are negative. 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 History of Any Multi-Drug Resistant Organisms: None Reported Past Surgical History: Section Additional Past Surgical History / Comment(s): 3. Lipomas removed from her back and abdomen. Past Anesthesia/Blood Transfusion Reactions: No Reported Reaction Past Psychological History: Anxiety, Bipolar, Depression Smoking Status: Current every day smoker Past Alcohol Use History: Occasional Past Drug Use History: Marijuana - Past Family History Mother Family Medical History: Myocardial Infarction ([place]) Additional Family Medical History / Comment(s): of HIV/AIDS. Father History Unknown: Yes Additional Family Medical History / Comment(s): Hx of emphysema. of alcohol abuse General Exam - General Exam Comments Initial Comments: GENERAL: Patient is well-developed and well-nourished. Patient is nontoxic and well- hydrated and is in mild distress. ENT: Neck is soft and supple. No significant lymphadenopathy is noted. Oropharynx is clear. Moist mucous membranes. Neck has full range of motion without eliciting any pain. EYES: The sclera were anicteric and conjunctiva were pink and moist. Extraocular movements were intact and pupils were equal round and reactive to light. Eyelids were unremarkable. PULMONARY: Patient is diffusely wheezing. CARDIOVASCULAR: There is a regular rate and rhythm without any murmurs gallops or rubs. ABDOMEN: Soft and nontender with normal bowel sounds. SKIN: Skin is clear with no lesions or rashes and otherwise unremarkable. NEUROLOGIC: Patient is alert and oriented x3. Cranial nerves II through XII are grossly intact. Motor and sensory are also intact. Normal speech, volume and content. Symmetrical smile. MUSCULOSKELETAL: Normal extremities with adequate strength and full range of motion. No lower extremity swelling or edema. No calf tenderness. LYMPHATICS: No significant lymphadenopathy is noted PSYCHIATRIC: Normal psychiatric evaluation. Limitations: no limitations Course Vital Signs 06/23/21 13:18 Temperature 99.3 F Pulse Rate 96 Respiratory 18 Rate Blood Pressure 145/87 O2 Sat by Pulse 96 Oximetry Medical Decision Making - Medical Decision Making EKG shows sinus rhythm at 80 bpm [place] interval is 1:30 QRS is 77 QT interval 342 QTC is 377. Patient's EKG shows no ST segment elevation or depression. Patient received multiple breathing treatment in the emergency room as well as steroids. New. Chest x-ray shows no acute abnormality. Patient was given a dose Rocephin emergency department. I reevaluated the patient after her breathing treatments and she continued to wheeze and did not feel close to her baseline. I spoke with Dr. Naqvi he agreed to admit the patient admitted the patient I wrote admitting orders. - Lab Data Result diagrams: 06/23/21 16:13 06/23/21 16:13 Lab Results 06/23/21 06/23/21 06/23/21 Range/Units 16:13 16:13 16:13 WBC 8.0 (3.8-10.6) k/uL RBC 4.79 (3.80-5.40) m/uL Hgb 14.5 (11.4-16.0) gm/dL Hct 43.0 (34.0-46.0) % MCV 89.8 (80.0-100.0) fL MCH 30.3 (25.0-35.0) pg MCHC 33.7 (31.0-37.0) g/dL RDW 12.8 (11.5-15.5) % Plt Count 294 (150-450) k/uL MPV 7.9 Neutrophils % 62 % Lymphocytes % 28 % Monocytes % 7 % Eosinophils % 1 % Basophils % 1 % Neutrophils # 4.9 (1.3-7.7) k/uL Lymphocytes # 2.2 (1.0-4.8) k/uL Monocytes # 0.5 (0-1.0) k/uL Eosinophils # 0.1 (0-0.7) k/uL Basophils # 0.1 (0-0.2) k/uL PT 10.4 (9.0-12.0) sec INR 0.9 (<1.2) APTT 22.5 (22.0-30.0) sec Sodium 140 (137-145) mmol/L Potassium 4.0 (3.5-5.1) mmol/L Chloride 105 (98-107) mmol/L Carbon Dioxide 27 (22-30) mmol/L Anion Gap 8 mmol/L BUN 16 (7-17) mg/dL Creatinine 0.50 L (0.52-1.04) mg/dL Est GFR (CKD-EPI)AfAm >90 (>60 ml/min/1.73 sqM) Est GFR (CKD-EPI)NonAf >90 (>60 ml/min/1.73 sqM) Glucose 99 (74-99) mg/dL Plasma Lactic Acid Mt (0.7-2.0) mmol/L Calcium 8.8 (8.4-10.2) mg/dL Total Bilirubin 0.6 (0.2-1.3) mg/dL AST 20 (14-36) U/L ALT 19 (4-34) U/L Alkaline Phosphatase 98 (38-126) U/L Troponin I (0.000-0.034) ng/mL Total Protein 7.8 (6.3-8.2) g/dL Albumin 4.0 (3.5-5.0) g/dL 06/23/21 06/23/21 Range/Units 16:13 16:13 WBC (3.8-10.6) k/uL RBC (3.80-5.40) m/uL Hgb (11.4-16.0) gm/dL Hct (34.0-46.0) % MCV (80.0-100.0) fL MCH (25.0-35.0) pg MCHC (31.0-37.0) g/dL RDW (11.5-15.5) % Plt Count (150-450) k/uL MPV Neutrophils % % Lymphocytes % % Monocytes % % Eosinophils % % Basophils % % Neutrophils # (1.3-7.7) k/uL Lymphocytes # (1.0-4.8) k/uL Monocytes # (0-1.0) k/uL Eosinophils # (0-0.7) k/uL Basophils # (0-0.2) k/uL PT (9.0-12.0) sec INR (<1.2) APTT (22.0-30.0) sec Sodium (137-145) mmol/L Potassium (3.5-5.1) mmol/L Chloride (98-107) mmol/L Carbon Dioxide (22-30) mmol/L Anion Gap mmol/L BUN (7-17) mg/dL Creatinine (0.52-1.04) mg/dL Est GFR (CKD-EPI)AfAm (>60 ml/min/1.73 sqM) Est GFR (CKD-EPI)NonAf (>60 ml/min/1.73 sqM) Glucose (74-99) mg/dL Plasma Lactic Acid Mt 0.9 (0.7-2.0) mmol/L Calcium (8.4-10.2) mg/dL Total Bilirubin (0.2-1.3) mg/dL AST (14-36) U/L ALT (4-34) U/L Alkaline Phosphatase (38-126) U/L Troponin I <0.012 (0.000-0.034) ng/mL Total Protein (6.3-8.2) g/dL Albumin (3.5-5.0) g/dL Disposition Clinical Impression: Acute exacerbation of chronic obstructive pulmonary disease Disposition: ADMITTED IP TO THIS HOSP Referrals: Juanjose Naqvi MD [Primary Care Provider] - 1-2 days Time of Disposition: 16:49
--- NOTE | 2021-06-23 16:14 | XR ---
EXAMINATION TYPE: XR chest 2V DATE OF EXAM: 06/23/2021 COMPARISON: Chest x-ray 09/21/2020 HISTORY: Difficulty breathing, cough TECHNIQUE: Frontal and lateral views of the chest are obtained. FINDINGS: There is no focal air space opacity, pleural effusion, or pneumothorax seen. The cardiac silhouette size is within normal limits. There is bronchial wall thickening. The osseous structures are intact. IMPRESSION: Correlate for bronchitis, follow-up as indicated
[2021-06-23 16:18] LABS: Basophils # (A) 0.1 k/uL (0-0.2); Basophils % (A) 1 %; Eosinophils # (A) 0.1 k/uL (0-0.7); Eosinophils % (A) 1 %; HGB 14.5 gm/dL (11.4-16.0); Lymphocytes # (A) 2.2 k/uL (1.0-4.8); Lymphocytes % (A) 28 %; MCH 30.3 pg (25.0-35.0); MCHC 33.7 g/dL (31.0-37.0); MCV 89.8 fL (80.0-100.0); Mean Platelet Volume 7.9; Monocytes # (A) 0.5 k/uL (0-1.0); Monocytes % (A) 7 %; Neutrophils # (A) 4.9 k/uL (1.3-7.7); Neutrophils % (A) 62 %; Platelet Count 294 k/uL (150-450); RBC 4.79 m/uL (3.80-5.40); RDW 12.8 % (11.5-15.5)
[2021-06-23 16:32] LABS: ALT 19 U/L (4-34); AST 20 U/L (14-36); African American GFR (CKD) >90 (>60 ml/min/1.73 sqM); Alkaline Phosphatase 98 U/L (38-126); Anion Gap 8 mmol/L; Blood Urea Nitrogen 16 mg/dL (7-17); Calcium 8.8 mg/dL (8.4-10.2); Carbon Dioxide 27 mmol/L (22-30); Chloride 105 mmol/L (98-107); Glucose 99 mg/dL (74-99); Non-African American GFR(CKD) >90 (>60 ml/min/1.73 sqM); Sodium 140 mmol/L (137-145); Total Bilirubin 0.6 mg/dL (0.2-1.3); Total Protein 7.8 g/dL (6.3-8.2)
[2021-06-23 16:38] LABS: INR 0.9 (<1.2); Partial Thromboplastin Time 22.5 sec (22.0-30.0); Prothrombin Time 10.4 sec (9.0-12.0)
[2021-06-23] MEDS ORDERED: NALOXONE 0.4 MG/ML 1 ML VIAL IV PRN (19:00)
--- NOTE | 2021-06-23 19:20 | P.HPIM ---
History of Present Illness H&P Date: 06/23/21 (Chronic bronchitis with acute exacerbation of COPD, chronic nicotine addiction) Chief Complaint: Patient complaining of shortness of breath started on Sunday progressively History and physical Dictation by Dr. Bowden, date of service 06/23/2021. Chief complaint: Patient stated that since Sunday of this week she has started coughing and shortness of breath. No phlegm and progressively worsening her chest wall has been hurting cause of the coughing and continued she tried everything she had inhalation therapy as well as she had some steroid pills left over she use that with no improvement and she felt short of breath could not get her oxygen better. Patient is seen in the ER by Dr. Russell evaluated and requested admission with acute exacerbation of chronic obstructive pulmonary disease. Laboratories indicating white count 8, hemoglobin 14.5, hematocrit 47.0, platelet count 2494. Her PT and INR and PTT within normal limits Her sodium 140 potassium is 4 chloride 105 carbon dioxide 27 within normal and I'm gap of 8 BUN of 16 and creatinine 0.5, GFR more than 94 -[place] female. Her glucose was 99 with no history of diabetes Her chest x-ray indicating thickening in the wall of the bronchi with that indicator of chronic bronchitis. Past medical history and she had history of a bipolar disorder, chronic pain syndrome, essential hypertension, fibromyalgia, nicotine dependence, sickle cell trait, She is current every day smoker she try to cut down using only 4 cigarettes Alcohol is occasional. She has a cat 1. She had 3 sons. Patient is single. ALLERGY is unknown. Medication last at home Flovent HFA 110 g per inhalation aerosol twice a day, #2 atorvastatin 20 mg once at bedtime, #3 metoprolol succinate ER 25 mg 1 tablet twice a day, #4 dewlap inhalation nebulizers 2.5 mg/0.5 mg 3 mL solution 4 times a day and when necessary pro-air HFA 90 g 4 times a day when necessary when she use it outside multivitamin mineral she received a from the pain clinic Dr. Jesús Cunningham 325/7.5 mg 1 tablet twice a day for pain control musculoskeletal and arthritis. With bilateral knee arthritis. Patient had the Beni vaccination times stool and a booster and as well she had coded disease in 07/14/2020 on her vaccination patient did not have the flu vaccine as she refused the vaccination. Review of system: 14 point reviewed, the prominent complaint his respiratory with wheezing and expectorating and coughing and chest wall hurting otherwise no other complaints Patient examined and seen in the ER and module exam room 7. As patient seen [id number] Head was normocephalic and atraumatic pupil was equal reactive, oropharynx was negative natural teeth, normal hearing. Nasal rhinitis coughing with expectoration Neck was supple no JVD no thyromegaly no lymphadenopathy trachea midline. Chest: Increased anteroposterior diameter with the underlying COPD she had inspiratory expiratory wheezes with rhonchi and expectoration of phlegm changed the color with the underlying bronchitis suppurative probably Heart regular sinus rhythm no dysrhythmia no chest pain no radiation. History of tachycardia Abdomen obese positive bowel sounds she did not have a bowel movement today but she had it yesterday. No abdominal pain on palpation. Extremities: No edema and positive pulses and she is ambulatory, history of arthritis chronically present. Chronic pain syndrome and treated by Dr. ramos for pain. Assessment: #1 acute exacerbation of COPD on the top of chronic #2 chronic bronchitis #3 nicotine dependency #4 chronic pain syndrome #5 history of tachycardia #6 hyper lipidemia. Plan #1 consultation with the pulmonary and critical Dr. Donovan Scanlon who her pulmonary physician #2 she started the Duarte on the steroid and they are will continue #3 she already started on the antibiotic orally. And received 1 IV piggyback Rocephin in the ER #4 inhalation therapy with DuoNeb. And continuation of the Flovent #5 obtain sputum for culture and sensitivity. #6 farther treatment depend on progression or improvement of the patient BMP in a.m. and CBC in a.m. and pro-calcitonin. 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 History of Any Multi-Drug Resistant Organisms: None Reported Past Surgical History: Section Additional Past Surgical History / Comment(s): 3. Lipomas removed from her back and abdomen. Past Anesthesia/Blood Transfusion Reactions: No Reported Reaction Past Psychological History: Anxiety, Bipolar, Depression Smoking Status: Current every day smoker Past Alcohol Use History: Occasional Past Drug Use History: Marijuana - Past Family History Mother Family Medical History: Myocardial Infarction ([place]) Additional Family Medical History / Comment(s): of HIV/AIDS. Father History Unknown: Yes Additional Family Medical History / Comment(s): Hx of emphysema. of alcohol abuse Medications and Allergies Home Medications Medication Instructions Recorded Confirmed Type RX: Metoprolol Succinate (ER) 25 mg PO BID 11/19/19 06/23/21 History [Toprol XL] Albuterol Sulfate [Proair Hfa] 2 puff INHALATION RT-QID PRN 06/23/21 06/23/21 History Atorvastatin [Lipitor] 20 mg PO HS 06/23/21 06/23/21 History Fluticasone Propionate [Flovent 1 puff INHALATION RT-BID 06/23/21 06/23/21 History Hfa 110 mcg] Ipratropium-Albuterol Nebulize 3 ml INHALATION RT-QID PRN 06/23/21 06/23/21 History [Duoneb 0.5 mg-3 mg/3 ml Soln] Naloxone HCl [Narcan] 4 mg NASAL DIRECTED 06/23/21 06/23/21 History oxyCODONE HCL/ACETAMINOPHEN 1 tab PO BID PRN 06/23/21 06/23/21 History [Percocet 7.5-325 mg] Allergies Allergy/AdvReac Type Severity Reaction Status Date / Time No Known Allergies Allergy Verified 06/23/21 13:19 Physical Exam Vitals: Vital Signs Temp Pulse Resp BP Pulse Ox 06/23/21 17:12 94 06/23/21 16:50 96 06/23/21 13:18 99.3 F 96 18 145/87 96 Intake and Output 06/23/21 06/23/21 06/23/21 06:59 14:59 22:59 Other: Weight 104.326 kg Results CBC & Chem 7: 06/23/21 16:13 06/23/21 16:13 Labs: Abnormal Lab Results - Last 24 Hours (Table) 06/23/21 Range/Units 16:13 Creatinine 0.50 L (0.52-1.04) mg/dL
[2021-06-23] MEDS: METOPROLOL SUCCINATE (ER) 25 MG TAB.ER.24H PO SCH (22:09)
[2021-06-23] MEDS: ATORVASTATIN 20 MG TAB PO SCH (22:09)
[2021-06-23] MEDS: HEPARIN SODIUM,PORCINE/PF 5,000 UNIT/0.5 ML SYRINGE SQ SCH (22:09)
[2021-06-23] MEDS: oxyCODONE-APAP 7.5-325MG 1 EACH TAB PO PRN (22:09)
[2021-06-23] MEDS: IPRATROPIUM-ALBUTEROL 3 ML NEB INHALATION SCH (22:26)
[2021-06-23] MEDS: FLUTICASONE 110 MCG INHALER INHALATION SCH (22:28)
[2021-06-23] MEDS: methylPREDNISolone SOD SUCCI 125 MG/2 ML VIAL IV SCH (23:54)
[2021-06-24] MEDS: methylPREDNISolone SOD SUCCI 125 MG/2 ML VIAL IV SCH ×4 (05:28→23:16)
[2021-06-24] MEDS: HEPARIN SODIUM,PORCINE/PF 5,000 UNIT/0.5 ML SYRINGE SQ SCH ×3 (08:31→23:16)
[2021-06-24] MEDS: CEFDINIR 300 MG CAP PO SCH ×2 (08:31→20:10)
[2021-06-24] MEDS: METOPROLOL SUCCINATE (ER) 25 MG TAB.ER.24H PO SCH ×2 (08:31→20:10)
[2021-06-24] MEDS: oxyCODONE-APAP 7.5-325MG 1 EACH TAB PO PRN ×2 (08:40→20:17)
[2021-06-24] MEDS: IPRATROPIUM-ALBUTEROL 3 ML NEB INHALATION SCH ×4 (09:12→19:52)
[2021-06-24] MEDS: FLUTICASONE 110 MCG INHALER INHALATION SCH ×2 (11:53→19:52)
--- NOTE | 2021-06-24 16:29 | P.CNPUL ---
History of Present Illness Consult date: 06/24/21 Reason for consult: dyspnea, cough, COPD Chief complaint: Increased shortness of breath and cough for 1 week progressive History of present illness: Patient is a 54-year-old female morbidly obese with history of COPD patient came into the hospital with one week of progressive increased cough shortness of breath and wheezing, patient has been using her nebulizer treatment without any significant improvement. 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 History of Any Multi-Drug Resistant Organisms: None Reported Past Surgical History: Section Additional Past Surgical History / Comment(s): 3. Lipomas removed from her back and abdomen. Past Anesthesia/Blood Transfusion Reactions: No Reported Reaction Past Psychological History: Anxiety, Bipolar, Depression Smoking Status: Current every day smoker Past Alcohol Use History: Occasional Past Drug Use History: Marijuana Additional Drug Use History / Comment(s): smokes 0.5 ppd. occasional drink beer - Past Family History Mother Family Medical History: Myocardial Infarction ([place]) Additional Family Medical History / Comment(s): of HIV/AIDS. Father History Unknown: Yes Additional Family Medical History / Comment(s): Hx of emphysema. of alcohol abuse Medications and Allergies Home Medications Medication Instructions Recorded Confirmed Type Metoprolol Succinate (ER) [Toprol 25 mg PO BID 11/19/19 06/23/21 History XL] Albuterol Sulfate [Proair Hfa] 2 puff INHALATION RT-QID PRN 06/23/21 06/23/21 History Atorvastatin [Lipitor] 20 mg PO HS 06/23/21 06/23/21 History Fluticasone Propionate [Flovent 1 puff INHALATION RT-BID 06/23/21 06/23/21 History Hfa 110 mcg] Ipratropium-Albuterol Nebulize 3 ml INHALATION RT-QID PRN 06/23/21 06/23/21 History [Duoneb 0.5 mg-3 mg/3 ml Soln] Naloxone HCl [Narcan] 4 mg NASAL DIRECTED 06/23/21 06/23/21 History oxyCODONE HCL/ACETAMINOPHEN 1 tab PO BID PRN 06/23/21 06/23/21 History [Percocet 7.5-325 mg] Allergies Allergy/AdvReac Type Severity Reaction Status Date / Time No Known Allergies Allergy Verified 06/23/21 13:19 Physical Exam Vitals: Vital Signs Temp Pulse Pulse Resp BP BP Pulse Ox 06/24/21 14:08 97.6 F 79 16 137/76 95 06/24/21 12:01 88 06/24/21 11:50 88 06/24/21 09:26 90 06/24/21 09:12 90 06/24/21 07:00 98.0 F 69 16 146/87 93 L 06/24/21 02:26 97.7 F 65 22 162/89 94 L 06/23/21 22:36 80 06/23/21 22:28 84 92 L 06/23/21 21:53 98.2 F 74 24 161/92 95 06/23/21 21:25 72 18 144/82 94 L 06/23/21 18:10 76 18 150/98 93 L 06/23/21 17:12 94 06/23/21 16:50 96 Intake and Output 06/24/21 06/24/21 06/24/21 06:59 14:59 22:59 Intake Total 236 Balance 236 Intake: Oral 236 Other: # Voids 1 4 # Bowel Movements 1 - Constitutional General appearance: cooperative, disheveled, mild distress - EENT Eyes: EOMI, PERRLA ENT: normal oropharynx Ears: bilateral: normal - Neck Carotids: bilateral: upstroke normal Thyroid: bilateral: normal size - Respiratory Respiratory: bilateral: wheezing - Cardiovascular Rhythm: regular Heart sounds: normal: S1, S2 - Gastrointestinal General gastrointestinal: normal bowel sounds - Integumentary Integumentary: normal turgor - Neurologic Neurologic: CNII-XII intact - Musculoskeletal Musculoskeletal: gait normal, generalized weakness, strength equal bilaterally - Psychiatric Psychiatric: A&O x's 3, appropriate affect, intact judgment & insight Results - Laboratory Findings CBC and BMP: 06/23/21 16:13 06/23/21 16:13 PT/INR, D-dimer PT 10.4 sec (9.0-12.0) 06/23/21 16:13 INR 0.9 (<1.2) 06/23/21 16:13 Abnormal lab findings: Abnormal Labs 06/23/21 16:13 Creatinine 0.50 L - Diagnostic Findings Chest x-ray: report reviewed, image reviewed Assessment and Plan Assessment: Acute COPD exacerbation Tracheobronchitis purulent Hypertension hypertensive cardiovascular disease Morbid obesity Degenerative joint disease especially with examined skeleton Extensive history of smoking and nicotine use Plan: Recommend continue bronchodilators IV steroids Breathing treatments Check d-dimer if elevated would recommend to do a spiral computed tomography scan of the chest Continue oral antibiotic DVT prophylaxis Time with Patient: Greater than 30
--- NOTE | 2021-06-24 17:01 | P.PN ---
Subjective Progress Note Date: 06/24/21 (Bronchial wall thickening) Principal diagnosis: Acute exacerbation on the top of chronic of chronic obstructive pulmonary disease Obesity Chronic nicotine dependence Negative for [id number] and influenza A and B Progress note Date of service 06/24/[address] Bowden Patient seen and evaluated [id number] Patient still shortness of breath and she had inspiratory expiratory wheezing you can hear it from a distance. Patient seen by Dr. Donovan Scanlon pulmonary and critical care. Chest x-ray showed thickening of the bronchial wall with the possibility of chronic bronchitis added to her diagnosis. On the physical exam [id number]: Head was normocephalic and atraumatic Pupil was equal reactive Oropharynx natural teeth and she had shortness Chest: She had inspiratory and expiratory wheezes with scattered rhonchi bilaterally. Associated with shortness of breath Heart regular sinus rhythm Abdomen obese positive bowel sounds no tenderness. Extremities no edema. Neurologically stable no lateralizing sign no dizziness and no blurred vision. No weakness. She is already on heparin for DVT prophylaxis. Assessment #1 with the use of the steroid, antibiotic, inhalation therapy with the bronchodilator still patient did not break down her spasm and the bronchospasm. Plan we'll continue the current treatment discussed with Dr. Donovan Scanlon possibility of bronchoscopy is considered with the thickening of the wall of the rhonchi. We'll see of there is improvement by tomorrow. Objective - Vital Signs Vital signs: Vital Signs Temp 97.6 F 06/24/21 14:08 Pulse 92 06/24/21 16:50 Resp 16 06/24/21 14:08 BP 137/76 06/24/21 14:08 Pulse Ox 95 06/24/21 14:08 Intake & Output 06/23/21 06/24/21 06/24/21 18:59 06:59 18:59 Intake Total 236 Balance 236 Weight 104.326 kg 104.326 kg Intake: Oral 236 Other: # Voids 1 4 # Bowel Movements 1 - Labs CBC & Chem 7: 06/23/21 16:13 06/23/21 16:13
[2021-06-24] MEDS: ATORVASTATIN 20 MG TAB PO SCH (20:09)
[2021-06-25] MEDS: methylPREDNISolone SOD SUCCI 125 MG/2 ML VIAL IV SCH ×4 (05:13→23:14)
[2021-06-25] MEDS: IPRATROPIUM-ALBUTEROL 3 ML NEB INHALATION SCH ×4 (07:47→18:57)
[2021-06-25] MEDS: FLUTICASONE 110 MCG INHALER INHALATION SCH ×2 (07:47→18:57)
[2021-06-25] MEDS: CEFDINIR 300 MG CAP PO SCH ×2 (08:34→19:47)
[2021-06-25] MEDS: METOPROLOL SUCCINATE (ER) 25 MG TAB.ER.24H PO SCH ×2 (08:34→19:48)
[2021-06-25] MEDS: HEPARIN SODIUM,PORCINE/PF 5,000 UNIT/0.5 ML SYRINGE SQ SCH ×3 (08:34→23:14)
[2021-06-25] MEDS: oxyCODONE-APAP 7.5-325MG 1 EACH TAB PO PRN ×2 (08:37→23:14)
--- NOTE | 2021-06-25 14:22 | P.PN ---
Subjective Progress Note Date: 06/25/21 (Bronchospasm bilateral) Progress note Date of service 06/25/[address] Naqvi Patient seen today [id number]. Patient stated that she feeling a little better however she has still been wheezing cough. No nausea no vomiting On examination: Temperature 90.8 F oral, pulse 68/m regular, respiratory rate 20 per minute and shallow breathing associated with audible rhonchi's and wheezes in spite of the chest x-ray not indicating pneumonia with the underlying bronchitis thickening of the bronchial tube with the underlying chronic bronchitis with the exacerbation of COPD . Her blood pressure 130/84 controlled with a mean arterial pressure 99 oxygen saturation is 94. On the room air. 55 years old -[place] female presented with acute exacerbation and failure of outpatient treatment. She has advanced COPD. HEENT negative Neck was supple no JVD no thyromegaly no lymphadenopathy trachea midline. Chest: Bilateral wheezes rhonchi inspiratory and expiratory in spite of that she is on oral antibiotic as well as she is on a steroid and inhalation therapy with bronchodilator. Heart regular sinus rhythm. Abdomen obese positive bowel sounds no tenderness Extremities no edema and positive pulses. Chronic bronchitis Acute exacerbation of COPD Negative for cough that and influenza A and B. Still symptomatic with shortness of breath. Plan Patient not ready yet for discharge with the underlying wheezing and rhonchi's and shortness of breath. We'll continue the current treatment and will add Tessalon Perles as well as guaifenesin extended tablet every 12 hours 1200 to ease the cough and make the patient able to expectorate. We'll follow tomorrow Objective - Vital Signs Vital signs: Vital Signs Temp 98 F 06/25/21 07:00 Pulse 84 06/25/21 11:23 Resp 20 06/25/21 07:00 BP 130/84 06/25/21 07:00 Pulse Ox 94 L 06/25/21 07:00 Intake & Output 06/24/21 06/25/21 06/25/21 18:59 06:59 18:59 Intake Total 354 Balance 354 Intake: Oral 354 Other: # Voids 4 2 # Bowel Movements 1 - Labs CBC & Chem 7: 06/23/21 16:13 06/23/21 16:13 Labs: Microbiology - Last 24 Hours (Table) 06/24/21 16:46 Gram Stain - Preliminary Sputum Sputum Culture - Preliminary 06/23/21 15:55 Blood Culture - Preliminary Blood No Growth after 24 hours 06/23/21 16:05 Blood Culture - Preliminary Blood No Growth after 24 hours
[2021-06-25] MEDS: guaiFENesin 600 MG TABLET.ER PO SCH ×2 (15:55→19:48)
[2021-06-25] MEDS: BENZONATATE 100 MG CAP PO SCH ×2 (15:55→19:48)
[2021-06-25] MEDS: ATORVASTATIN 20 MG TAB PO SCH (19:47)
[2021-06-26] MEDS: methylPREDNISolone SOD SUCCI 125 MG/2 ML VIAL IV SCH ×4 (05:37→23:40)
[2021-06-26] MEDS: IPRATROPIUM-ALBUTEROL 3 ML NEB INHALATION SCH ×4 (07:00→18:57)
[2021-06-26] MEDS: FLUTICASONE 110 MCG INHALER INHALATION SCH (07:00)
[2021-06-26] MEDS: METOPROLOL SUCCINATE (ER) 25 MG TAB.ER.24H PO SCH ×2 (08:45→20:49)
[2021-06-26] MEDS: HEPARIN SODIUM,PORCINE/PF 5,000 UNIT/0.5 ML SYRINGE SQ SCH ×3 (08:45→23:39)
[2021-06-26] MEDS: CEFDINIR 300 MG CAP PO SCH ×2 (08:45→20:49)
[2021-06-26] MEDS: guaiFENesin 600 MG TABLET.ER PO SCH ×2 (08:45→20:49)
[2021-06-26] MEDS: BENZONATATE 100 MG CAP PO SCH ×3 (08:46→20:49)
[2021-06-26] MEDS: oxyCODONE-APAP 7.5-325MG 1 EACH TAB PO PRN ×2 (08:46→20:49)
--- NOTE | 2021-06-26 12:20 | P.PN ---
Subjective Progress Note Date: 06/26/21 Principal diagnosis: Acute COPD exacerbation Tracheobronchitis purulent Hypertension hypertensive cardiovascular disease Morbid obesity Degenerative joint disease especially with examined skeleton Extensive history of smoking and nicotine use 06/26/2021, patient seen and evaluated examined during the rounds labs reviewed medications reviewed care plan discussed, respiratory status is still marginal is still having ongoing wheezing cough congestion, patient remains on bro nchodilator along with IV steroids and oral antibiotics feels slightly better compared to yesterday, her d-dimer is within normal limit Patient is a 54-year-old female morbidly obese with history of COPD patient came into the hospital with one week of progressive increased cough shortness of breath and wheezing, patient has been using her nebulizer treatment without any significant improvement. She is a long-term smoker smokes 1 pack per day for almost 30 years lately have cut down to half pack a day patient has been complaining of chest tightness and pleuritic chest pain, chest x-ray no focal opacity has been isolated, no pleural effusion pneumothorax is seen, bronchial wall thickening has been noted and is still of bronchitis CBC within normal limit Covid as well as influenza has been negative Objective - Vital Signs Vital signs: Vital Signs Temp 97.6 F 06/26/21 07:00 Pulse 80 06/26/21 11:04 Resp 18 06/26/21 07:00 BP 132/84 06/26/21 07:00 Pulse Ox 93 L 06/26/21 07:00 Intake & Output 06/25/21 06/26/21 06/26/21 18:59 06:59 18:59 Intake Total 720 Balance 720 Intake: Oral 720 Other: # Voids 2 1 - Exam - Constitutional General appearance: cooperative, disheveled, mild distress - EENT Eyes: EOMI, PERRLA ENT: normal oropharynx Ears: bilateral: normal - Neck Carotids: bilateral: upstroke normal Thyroid: bilateral: normal size - Respiratory Respiratory: bilateral: wheezing, slightly improved compared to prior exam - Cardiovascular Rhythm: regular Heart sounds: normal: S1, S2 - Gastrointestinal General gastrointestinal: normal bowel sounds - Integumentary Integumentary: normal turgor - Neurologic Neurologic: CNII-XII intact - Musculoskeletal Musculoskeletal: gait normal, generalized weakness, strength equal bilaterally - Psychiatric Psychiatric: A&O x's 3, appropriate affect, intact judgment & insight - Labs CBC & Chem 7: 04/07/22 16:13 06/23/21 16:13 Labs: Microbiology - Last 24 Hours (Table) 06/24/21 16:46 Gram Stain - Final Sputum Sputum Culture - Final 06/23/21 16:05 Blood Culture - Preliminary Blood No Growth after 48 hours 06/23/21 15:55 Blood Culture - Preliminary Blood No Growth after 48 hours Assessment and Plan Assessment: Acute COPD exacerbation Tracheobronchitis purulent Hypertension hypertensive cardiovascular disease Morbid obesity Degenerative joint disease especially with examined skeleton Extensive history of smoking and nicotine use Plan: Recommend continue bronchodilators IV steroids Breathing treatments Noted d-dimer within normal limit Continue oral antibiotic DVT prophylaxis Time with Patient: Greater than 30
--- NOTE | 2021-06-26 14:33 | P.PN ---
Subjective Progress Note Date: 06/26/21 (Still wheezing and shortness of breath) Progress note Date of service 06/26/[address] Bowden. Patient seen and evaluated [id number] Patient still congested coughing with the presence of rhonchi and wheezes bilateral she is on bronchodilator and steroid and inhalation therapy and antibiotic so far did not breakdown yet with the tracheobronchitis and suppurative bronchitis. On the physical exam Conscious alert oriented 3 Head was normocephalic and atraumatic pupil was equal reactive and conjunctiva was pink sclera was nonicteric oropharynx natural teeth neck was supple no JVD no thyromegaly no lymphadenopathy trachea midline Chest was: Inspiratory expiratory rhonchi with congestion audible and short of breath Heart regular sinus rhythm Abdomen is obese positive bowel sounds no tenderness Extremities no edema and positive pulses. Neurologically: No lateralizing sign. Assessment #1 acute exacerbation of COPD not improving yet symptomatic #2 purulent tracheobronchitis #3 nicotine dependence #4 obesity. Plan: #1 continue the current treatment #2 ambulate 4 times a day as tolerated check also oxygen saturation. Objective - Vital Signs Vital signs: Vital Signs Temp 98.6 F 06/26/21 13:49 Pulse 71 06/26/21 13:49 Resp 15 06/26/21 13:49 BP 132/83 06/26/21 13:49 Pulse Ox 94 L 06/26/21 13:49 Intake & Output 06/25/21 06/26/21 06/26/21 18:59 06:59 18:59 Intake Total 720 240 Balance 720 240 Intake: Oral 720 240 Other: # Voids 2 1 - Labs CBC & Chem 7: 06/23/21 16:13 06/23/21 16:13 Labs: Microbiology - Last 24 Hours (Table) 06/24/21 16:46 Gram Stain - Final Sputum Sputum Culture - Final 06/23/21 16:05 Blood Culture - Preliminary Blood No Growth after 48 hours 06/23/21 15:55 Blood Culture - Preliminary Blood No Growth after 48 hours
[2021-06-26] MEDS: ATORVASTATIN 20 MG TAB PO SCH (20:49)
[2021-06-27] MEDS: methylPREDNISolone SOD SUCCI 125 MG/2 ML VIAL IV SCH ×2 (05:20→12:23)
[2021-06-27] MEDS: IPRATROPIUM-ALBUTEROL 3 ML NEB INHALATION SCH ×2 (07:21→11:00)
[2021-06-27] MEDS: FLUTICASONE 110 MCG INHALER INHALATION SCH (07:22)
[2021-06-27] MEDS: HEPARIN SODIUM,PORCINE/PF 5,000 UNIT/0.5 ML SYRINGE SQ SCH (07:58)
[2021-06-27] MEDS: oxyCODONE-APAP 7.5-325MG 1 EACH TAB PO PRN (07:59)
[2021-06-27] MEDS: METOPROLOL SUCCINATE (ER) 25 MG TAB.ER.24H PO SCH (07:59)
[2021-06-27] MEDS: BENZONATATE 100 MG CAP PO SCH (07:59)
[2021-06-27] MEDS: CEFDINIR 300 MG CAP PO SCH (07:59)
[2021-06-27] MEDS: guaiFENesin 600 MG TABLET.ER PO SCH (07:59)
[2021-06-27 09:28] VITALS: BP 142/78; RESP 20; TEMP 98.1
[2021-06-27 11:02] VITALS: PULSE 88
--- NOTE | 2021-06-27 13:33 | P.DS ---
Providers Date of admission: 06/25/21 15:46 Expected date of discharge: 06/27/21 Attending physician: Juanjose Naqvi Consults: 06/23/21 16:51 Consult Physician Urgent Consulting Provider: Donovan Scanlon Consult Reason/Comments: COPD Do you want consulting provider notified?: Yes Primary care physician: Juanjose Naqvi Dictation of discharge summary Date of service 06/27/2021. Final diagnosis #1 acute exacerbation of obstructive lung disease on the top of chronic. #2 purulent tracheobronchitis number #3 obesity #4 chronic smoker with nicotine dependence. Consultation Pulmonary and critical care Dr. Donovan Scanlon. Presentation in the ER: Severe shortness of breath could not break her acute exacerbation with wheezing and congestion and shortness of breath in the emergency room with the inhalation and requested admission by the ER physician. Patient admitted through the hospital 622 with the consultation of pulmonary and critical care. Steroids, bronchodilator and antibiotic with the underlying chest x-ray with thickening of the bronchial tree and indicator of bronchitis chronically with the suppurative bronchitis. Her chest was prepped resistan audible expiratory and inspiratory wheezes and rhonchi's 80 with cough patient started on antibiotic as well with the bronchodilator and continue to have a difficulties. Today she is baseline and the she felt better and she also requested to go home and that we will be continuing following her up at outpatient as well as Dr. Man on the will follow up at outpatient Her vital signs stable and she is on the baseline at this time Negative cough did 19 infection, negative for influenza a and B. [id number] exam on discharge Vital signs stable Head was normocephalic and atraumatic, pupil was equal reactive, oropharynx was negative Neck was supple no JVD no thyromegaly no lymphadenopathy trachea midline. Chest was baseline with the scattered rhonchi's bilateral no wheezes Heart regular sinus rhythm compensated Abdomen obese positive bowel sounds no tenderness in the 4 quadrants Extremities no edema and positive pulses. Neurologically stable ambulatory. Assessment patient stable general condition to be discharged to home today Follow-up with Dr. Donovan Scanlon pulmonary and critical care. Plan: Patient will be discharged with antibiotic for 7 days as well as steroid, she had the inhaler the DuoNeb at home and portable inhalation albuterol. And to follow-up with Dr. Bowden 5-7 days Follow-up with Dr. Donovan Scanlon and 5 days. " Plan - Discharge Summary New Discharge Prescriptions: New Cefdinir [Omnicef] 300 mg PO BID 7 Days #14 cap predniSONE 10 mg PO TID #30 tab Benzonatate [Tessalon Perles] 200 mg PO TID #30 cap guaiFENesin [Mucinex] 1,200 mg PO Q12HR #20 tablet Continue Metoprolol Succinate (ER) [Toprol XL] 25 mg PO BID Ipratropium-Albuterol Nebulize [Duoneb 0.5 mg-3 mg/3 ml Soln] 3 ml INHALATION RT-QID PRN PRN Reason: Shortness Of Breath Fluticasone Propionate [Flovent Hfa 110 mcg] 1 puff INHALATION RT-BID Albuterol Sulfate [Proair Hfa] 2 puff INHALATION RT-QID PRN PRN Reason: Shortness Of Breath oxyCODONE HCL/ACETAMINOPHEN [Percocet 7.5-325 mg] 1 tab PO BID PRN PRN Reason: Pain Atorvastatin [Lipitor] 20 mg PO HS Discontinued Naloxone HCl [Narcan] 4 mg NASAL DIRECTED Discharge Medication List Metoprolol Succinate (ER) [Toprol XL] 25 mg PO BID 11/19/19 [History] Albuterol Sulfate [Proair Hfa] 2 puff INHALATION RT-QID PRN 06/23/21 [History] Atorvastatin [Lipitor] 20 mg PO HS 06/23/21 [History] Fluticasone Propionate [Flovent Hfa 110 mcg] 1 puff INHALATION RT-BID 06/23/21 [History] Ipratropium-Albuterol Nebulize [Duoneb 0.5 mg-3 mg/3 ml Soln] 3 ml INHALATION RT-QID PRN 06/23/21 [History] oxyCODONE HCL/ACETAMINOPHEN [Percocet 7.5-325 mg] 1 tab PO BID PRN 06/23/21 [History] Benzonatate [Tessalon Perles] 200 mg PO TID #30 cap 06/27/21 [Rx] Cefdinir [Omnicef] 300 mg PO BID 7 Days #14 cap 06/27/21 [Rx] guaiFENesin [Mucinex] 1,200 mg PO Q12HR #20 tablet 06/27/21 [Rx] predniSONE 10 mg PO TID #30 tab 06/27/21 [Rx] Follow up Appointment(s)/Referral(s): Donovan Scanlon MD [STAFF PHYSICIAN] - 1 Week Juanjose Naqvi MD [Primary Care Provider] - 1-2 days
== END 2021-06-27 14:59 | disposition home health service (06) | DRG 191 ==
LOC: EC 13:12 → 6NMEDSUR 17:00 → OBSVTOIN 06-25 15:46
PROVIDERS: ADMIT Internal Medicine; ATTEND Internal Medicine
DX: J44.1 Chronic obstructive pulmonary disease with (acute) exacerbation (principal); Z68.41 Body mass index [BMI] 40.0-44.9, adult; M54.2 Cervicalgia; M54.9 Dorsalgia, unspecified; F31.9 Bipolar disorder, unspecified; G89.4 Chronic pain syndrome; M79.7 Fibromyalgia; F17.210 Nicotine dependence, cigarettes, uncomplicated; D57.3 Sickle-cell trait; M17.0 Bilateral primary osteoarthritis of knee; J31.0 Chronic rhinitis; E78.5 Hyperlipidemia, unspecified; F41.9 Anxiety disorder, unspecified; E66.01 Morbid (severe) obesity due to excess calories; I11.9 Hypertensive heart disease without heart failure; R00.0 Tachycardia, unspecified; Z20.822 Contact with and (suspected) exposure to COVID-19; Z86.19 Personal history of other infectious and parasitic diseases; Z79.899 Other long term (current) drug therapy; Z72.89 Other problems related to lifestyle; Z79.891 Long term (current) use of opiate analgesic; Z98.890 Other specified postprocedural states; Z82.49 Family history of ischemic heart disease and other diseases of the circulatory system; Z83.0 Family history of human immunodeficiency virus [HIV] disease; Z82.5 Family history of asthma and other chronic lower respiratory diseases; Z81.1 Family history of alcohol abuse and dependence
CPT/HCPCS: 36415; 71046; 80053; 83605; 84145; 84484; 85025; 85379; 85610; 85730; 86684; 87040; 87070; 87205; 87502; 87635; 93005; 94640; 96365; 96375; 99285

== ENCOUNTER → 2022-03-31 | Outpatient (CLI) | payer OTHER ==
[2022-03-31 23:09] LABS: ALT 24 U/L (8-44); AST 14 U/L (13-35); African American GFR (CKD) 126.8 (60.0-200.0); Albumin 4.2 g/dL (3.8-4.9); Albumin/Globulin Ratio 1.41 (1.60-3.17); Alkaline Phosphatase 125 U/L (41-126); Blood Urea Nitrogen 10.1 mg/dL (9.0-27.0); Calcium 9.1 mg/dL (8.7-10.3); Carbon Dioxide 24.8 mmol/L (20.0-27.5); Chloride 106 mmol/L (96-109); Glucose 87 mg/dL (70-110); Iron 46 ug/dL (50-170); Magnesium 1.9 mg/dL (1.5-2.4); Non-African American GFR(CKD) 109.4 (60.0-200.0); Phosphorus 3.2 mg/dL (2.4-5.1); Potassium 3.9 mmol/L (3.5-5.5); Sodium 144 mmol/L (135-145); Total Bilirubin <0.15 mg/dL (0.30-1.20); Total Iron Binding Capacity 395 ug/dL (228-460); Total Protein 7.2 g/dL (6.2-8.2); Uric Acid 5.1 mg/dL (2.9-7.7)
[2022-03-31 23:17] LABS: Basophils # (A) 0.03 X 10*3/uL (0.00-0.10); Basophils % (A) 0.3 %; Eosinophils # (A) 0.23 X 10*3/uL (0.04-0.35); Eosinophils % (A) 2.4 %; HCT 41.9 % (37.2-46.3); HGB 13.8 g/dL (12.0-15.0); Immature Grans, Automated 0.2 %; Lymphocytes # (A) 3.49 X 10*3/uL (0.90-5.00); Lymphocytes % (A) 36.2 %; MCH 29.4 pg (27.0-32.0); MCHC 32.9 g/dL (32.0-37.0); MCV 89.1 fL (80.0-97.0); Mean Platelet Volume 10.1 fL (9.5-12.2); Monocytes # (A) 0.51 X 10*3/uL (0.20-1.00); Monocytes % (A) 5.3 %; NRBC Per 100 WBC 0 /100 WBCS (0.0-0.0); Neutrophils # (A) 5.35 X 10*3/uL (1.80-7.70); Neutrophils % (A) 55.6 %; Platelet Count 305 X 10*3/uL (140-440); RDW 13.4 % (11.5-14.5); WBC 9.63 X 10*3/uL (4.50-10.00)
[2022-03-31 23:51] LABS: Chol/HDL Ratio 3.23 Ratio; Creatine Kinase 52 U/L (26-186); LDL Cholesterol,Calculated 109.3 mg/dL (0.0-131.0); VLDL Calculation 12.92 mg/dL (5.00-40.00)
[2022-04-01] LABS: Erythrocyte Sedimentation Rate 39 mm/Hr (0-30)
== END | disposition home or self-care (01) ==
LOC: LABWHC1 13:12
PROVIDERS: ATTEND Internal Medicine
DX: Z00.00 Encounter for general adult medical examination without abnormal findings (principal); I10 Essential (primary) hypertension; I63.9 Cerebral infarction, unspecified; G81.91 Hemiplegia, unspecified affecting right dominant side; D64.9 Anemia, unspecified; J44.9 Chronic obstructive pulmonary disease, unspecified; E78.5 Hyperlipidemia, unspecified; E11.65 Type 2 diabetes mellitus with hyperglycemia; E03.9 Hypothyroidism, unspecified; M10.9 Gout, unspecified; N18.30 Chronic kidney disease, stage 3 unspecified
CPT/HCPCS: 36415; 80053; 80061; 82306; 82550; 82728; 83036; 83540; 83550; 83735; 84100; 84443; 84550; 85025; 85652; 86140